=== PATIENT | female | born 1965 | race Caucasian/White ===

== ENCOUNTER → 2016-12-03 | Day surgery (SDC) | payer BC ==
[2016-11-27 09:05] VITALS: Ht 154.9 cm; Wt 118.2 kg
[~2016-12-03] VITALS: Ht 154.9 cm; Wt 118.2 kg
[~2016-12-03] MED LIST: LIDOCAINE HCL 2% 2 ML VIAL (20MG/ML) ONE; LORA-741 PO; LPT/20 PO; LSN5 PO; MTR/600 PO; ONDANSETRON INJ 2 MG/ML 2 ML VIAL IV PRN; PROPOFOL IV EMULSION 10 MG/ML 20 ML VIAL IV ONE; TPRSR/50 PO
--- NOTE | 2016-12-03 08:25 | Endo History and Physical ---
History & Physical Date of Service: Dec 03, 2016. Chief Complaint: screening Referring Physician: Dr Nguyen History of Present Illness Patient for Colon cancer screening, no symptoms or family history . Past Surgical History Hx Cardiac Surgery: No Hx Internal Defibrillator: No Hx Pacemaker: No Hx Abdominal Surgery: No Hx of Implantable Prosthesis: No Hx Post-Op Nausea and Vomiting: No Hx Cancer Surgery: No Hx Thoracic Surgery: No Hx Orthopedic: Yes (RT WRIST BONE SPUR REMOVAL) Hx Urinary Tract Surgery: No Family History None Social History Smoking Status: Current Every Day Smoker Hx Substance Use: No Hx Alcohol Use: Yes ("SOCIALLY") Allergies Coded Allergies: No Known Allergies (Unverified , 11/27/16) Current Medications Reported Home Medications Medications Dose Route/Sig Max Daily Dose Days Date Category Ativan (Lorazepam) 0.5 Mg Tab 0.5 Mg PO TID PRN 11/27/16 Reported Ibuprofen 600 Mg Tab 1 Tab PO DAILY PRN 11/27/16 Reported Atorvastatin Calcium (Atorvastatin) 20 Mg Tab 20 Mg PO HS 12/08/15 Reported Metoprolol Succinate ER (Metoprolol Succinate) 50 Mg Tabcr 50 Mg PO QAM 12/08/15 Reported Lisinopril 5 Mg Tab 5 Mg PO QAM 09/13/13 Reported Vital Signs Weight (Kilograms): 118.18 Height (Feet): 5 Height (Inches): 1 Date Time Temp Pulse Resp B/P (MAP) Pulse Ox O2 Delivery O2 Flow Rate FiO2 12/03/16 08:18 36.6 74 20 145/77 (99) 94 Room Air Physical Exam General Appearance: no apparent distress Respiratory/Chest: Auscultation: breath sounds normal Cardiovascular: Heart Auscultation: RRR Abdomen: Inspection & Palpation: soft Assessment and Plan Colonoscopy for CRC screening, risks are bleeding, infection, perforation, pain , and missed polyps.
--- NOTE | 2016-12-03 08:57 | Discharge Instructions ---
Endoscopy Patient Instructions Date / Procedure(s) Performed Dec 03, 2016. Colonoscopy Allergy Information Coded Allergies: No Known Allergies (Unverified , 11/27/16) Discharge Date / Findings Dec 03, 2016. 4 colon polyps Hemorrhoids Diverticulosis of the colon Medication Instructions Reported Home Medications Medications Dose Route/Sig Max Daily Dose Days Date Category Ativan (Lorazepam) 0.5 Mg Tab 0.5 Mg PO TID PRN 11/27/16 Reported Ibuprofen 600 Mg Tab 1 Tab PO DAILY PRN 11/27/16 Reported Atorvastatin Calcium (Atorvastatin) 20 Mg Tab 20 Mg PO HS 12/08/15 Reported Metoprolol Succinate ER (Metoprolol Succinate) 50 Mg Tabcr 50 Mg PO QAM 12/08/15 Reported Lisinopril 5 Mg Tab 5 Mg PO QAM 09/13/13 Reported Provider Instructions Activity Restrictions - No exercising or heavy lifting for 24 hours. - Do not drink alcohol the day of the procedure. - Do not drive a car or operate machinery until the day after the procedure. - Do not make any important decisions or sign important papers in 24 hours after the procedure. Following Day: - Return to full activity which may include returning to work/school. Diet Start your diet with liquids and light foods (jello, soup, juice, toast). Then eat your usual diet if not nauseated. Treatment For Common After Affects For mild abdominal pain, bloating, or excessive gas: - Rest - Eat lightly - Lie on right side Follow-Up Information Follow-up with Dr Nguyen as scheduled Repeat colonoscopy in 3 to 5 years Consider addition of a fiber supplement (1-2 fiber gummies per day) Anesthesia Information What You Should Know You have had a procedure that required some medicine to reduce anxiety and discomfort. This treatment is called moderate sedation. After receiving the treatment, you may be sleepy, but you will be able to breathe on your own. The effects of the treatment may last for several hours. Follow these instructions along with Activity/Diet recommendations noted above: * Do NOT do anything where dizziness or clumsiness would be dangerous. * Rest quietly at home today, then you can be up and about tomorrow. * Have a responsible person stay with you the rest of today. * You may have had an I.V. today. If so, you may take the dressing off later today. Recommendations Call your doctor if: * Trouble breathing * Continuous vomiting for more than 24 hours * Temperature above 101 degrees * Severe abdominal pain or bloating * Pain not relieved by pain medicine ordered * There is increased drainage or redness from any incision * A large amount of rectal bleeding greater than 2-3 tablespoons. (If you had a polyp/s removed or have hemorrhoids, a small amount of blood - from the rectum is to be expected.) * You have any unanswered questions or concerns. IN THE EVENT OF A SERIOUS EMERGENCY, GO TO THE NEAREST EMERGENCY ROOM Your discharge instructions were prepared by provider Terry Platt. Patient Instructions Signature Page Jennifer Hernández Patient (or Guardian) Signature/Date: I have read and understand the instructions given to me by my caregivers. Caregiver/RN/Doctor Signature/Date: The above-named patient and/or guardian has received patient instructions on this date. + Original Patient Signature Page (only) stays with chart. Please make copy for patient.
--- NOTE | 2016-12-03 09:01 | GI REPORT ---
Procedure Date: 12/03/2016 8:29 AM Procedure: Colonoscopy Indications: Screening for colorectal malignant neoplasm Medicines: Monitored Anesthesia Care Complications: No immediate complications. Estimated blood loss: Minimal. Estimated Blood Loss: Estimated blood loss: none. Procedure: Pre-Anesthesia Assessment: - Prior to the procedure, a History and Physical was performed, and patient medications, allergies and sensitivities were reviewed. The patient's tolerance of previous anesthesia was reviewed. - The risks and benefits of the procedure and the sedation options and risks were discussed with the patient. All questions were answered and informed consent was obtained. - Patient identification and proposed procedure were verified prior to the procedure by the physician, the nurse and the timber sprinkler. The procedure was verified in the procedure room. - Pre-procedure physical examination revealed no contraindications to sedation. - ASA Grade Assessment: III - A patient with severe systemic disease. - After reviewing the risks and benefits, the patient was deemed in satisfactory condition to undergo the procedure. - The anesthesia plan was to use monitored anesthesia care (MAC). - Immediately prior to administration of medications, the patient was re-assessed for adequacy to receive sedatives. - The heart rate, respiratory rate, oxygen saturations, blood pressure, adequacy of pulmonary ventilation, and response to care were monitored throughout the procedure. - The physical status of the patient was re-assessed after the procedure. After I obtained informed consent, the scope was passed under direct vision. Throughout the procedure, the patient's blood pressure, pulse, and oxygen saturations were monitored continuously. The scope was introduced through the anus and advanced to the terminal ileum. The colonoscopy was performed without difficulty. The patient tolerated the procedure well. The quality of the bowel preparation was good. Findings: The perianal and digital rectal examinations were normal. A 6 mm polyp was found in the cecum. The polyp was sessile. The polyp was removed with a hot snare. Resection and retrieval were complete. Estimated blood loss was minimal. A 7 mm polyp was found in the ascending colon. The polyp was sessile. The polyp was removed with a hot snare. Resection and retrieval were complete. Estimated blood loss was minimal. Two sessile polyps were found in the rectum. The polyps were 5 to 6 mm in size. These polyps were removed with a hot snare. Resection and retrieval were complete. Estimated blood loss was minimal. Internal hemorrhoids were found during retroflexion. The hemorrhoids were mild. A few small-mouthed diverticula were found in the sigmoid colon, in the descending colon and in the ascending colon. The exam was otherwise without abnormality. Impression: - One 6 mm polyp in the cecum, removed with a hot snare. Resected and retrieved. - One 7 mm polyp in the ascending colon, removed with a hot snare. Resected and retrieved. - Two 5 to 6 mm polyps in the rectum, removed with a hot snare. Resected and retrieved. - Internal hemorrhoids. - Mild diverticulosis in the sigmoid colon, in the descending colon and in the ascending colon. - The examination was otherwise normal. Recommendation: - Discharge patient to home (ambulatory). - Advance diet as tolerated today. - Await pathology results. - Repeat colonoscopy in 3 - 5 years for surveillance based on pathology results. Terry Platt D.O. Terry Platt, 12/03/2016 9:00:51 AM This report has been signed electronically. Note Initiated On: 12/03/2016 8:29 AM I attest to the content of the Intraoperative Record and orders documented therein, exceptions below
[2016-12-03 09:33] VITALS: BP 140/80; PULSE 65; O2SAT 94
--- NOTE | 2016-12-03 09:33 | Anesthesiology Progress Note ---
Anesthesia Post Op Note Date & Time Dec 03, 2016 at 09:33 Vital Signs Pain Intensity: 0 Vital Signs Past 12 Hours Date Time Temp Pulse Resp B/P (MAP) Pulse Ox O2 Delivery O2 Flow Rate FiO2 12/03/16 09:18 72 20 134/83 (100) 99 12/03/16 09:03 74 20 117/56 (76) 94 Room Air Mask 12/03/16 08:18 36.6 74 20 145/77 (99) 94 Room Air Notes Mental Status: alert / awake / arousable, participated in evaluation Pt Amnestic to Procedure: Yes Nausea / Vomiting: adequately controlled Pain: adequately controlled Airway Patency, RR, SpO2: stable & adequate BP & HR: stable & adequate Hydration State: stable & adequate Anesthetic Complications: no major complications apparent
== END | disposition home or self-care (01) ==
LOC: C.GI 07:50
PROVIDERS: ATTEND Internal Medicine Gastroenterology
DX: Z12.11 Encounter for screening for malignant neoplasm of colon (principal); D12.0 Benign neoplasm of cecum; D12.2 Benign neoplasm of ascending colon; K62.1 Rectal polyp; K64.8 Other hemorrhoids; K57.30 Diverticulosis of large intestine without perforation or abscess without bleeding; I10 Essential (primary) hypertension; E66.01 Morbid (severe) obesity due to excess calories; Z68.42 Body mass index [BMI] 45.0-49.9, adult; Z98.890 Other specified postprocedural states; Z90.89 Acquired absence of other organs; Z98.818 Other dental procedure status

== ENCOUNTER 2023-07-21 18:27 | Inpatient (IN) ==
--- NOTE | 2023-07-21 18:37 | ED Triage Note ---
Date of Service July 21, 2023 Provider in Triage Author: Esequiel Núñez History of Present Illness This patient was briefly evaluated while in triage. An abbreviated physical exam was performed. This patient is a 57-year-old Female who presents to the ED for evaluation of SOB and coughing. Has had low grade fever at home. Symptoms began last evening. SOB increased throughout the night. +Headache. Taking Tylenol, but with body aches. O2% in triage is 88% Physical Exam Limited Triage Exam: VITALS: Vitals are noted on the nurse's note and reviewed by myself. Vital signs stable. GENERAL: Well-developed, well-nourished, white female, who is in no acute distress and resting comfortably. Patient is cooperative with the examination. HEART: Regular rate and rhythm without murmurs gallops or rubs. LUNGS: Clear to auscultation bilaterally without wheezes, rales or rhonchi. No retractions or accessory muscle use. NEURO: Patient was alert and oriented to person place and time. CN II through XII grossly intact. Initial orders for labs and / or imaging were placed and patient was placed in the waiting area until a bed is available. Please see further documentation for the full ED course. MDM / Impression Impression Impression: Influenza A, Hypoxia
--- NOTE | 2023-07-21 19:07 | XRay Report ---
XR chest 1V portable HISTORY: 57 years-old Female Dyspnea acute shortness of breath with cough COMPARISON: 02/10/2021 TECHNIQUE: AP view of the chest FINDINGS: Cardiac silhouette is enlarged. There is no pneumothorax, pleural effusion or airspace consolidation. Bones appear grossly intact. IMPRESSION: No acute process. ACT 112: Negative or not required by law. The above report was generated using voice recognition software. It may contain grammatical, syntax o r spelling errors. Electronically signed by: Edin Malin M.D. 07/21/2023 7:06 PM
[2023-07-21 19:20] LABS: Basophils # (auto) 0.05 K/uL (0.00-0.20); Basophils % (auto) 0.7 %; Eosinophils # (auto) 0.02 K/uL (0.00-0.50); Eosinophils % (auto) 0.3 %; Hemoglobin 15.2 g/dl (12.0-16.0); Immature Granulocytes # (auto) 0.03 K/uL (0.01-0.20); Immature Granulocytes % (auto) 0.4 %; Lymphocytes # (auto) 0.46 K/uL (1.20-3.40); Lymphocytes % (auto) 6.6 %; Mean Corpuscular Hemoglobin 29.2 pg (25.0-34.0); Mean Corpuscular Volume 88.5 fL (80.0-100.0); Monocytes % (auto) 7.2 %; Neutrophils # (auto) 5.92 K/uL (1.40-6.50); Neutrophils % (auto) 84.8 %; Platelet Count 162 K/uL (130-400); RDW Coefficient of Variation 13.5 % (11.5-14.5); RDW Standard Deviation 43.5 fL (36.4-46.3); White Blood Count 6.98 K/ul (4.8-10.8)
[2023-07-21 19:38] LABS: Albumin Globulin Ratio 1.4 (0.9-2); Albumin Level 4.2 gm/dl (3.4-5.0); BUN Creatinine Ratio 15.9 (10-20); Bilirubin,Total 0.6 mg/dl (0.2-1.0); Calcium 9.4 mg/dl (8.6-10.3); Creatinine Clr Calc Pharmacy 116.4 ml/min; Est GFR (African American) 116.2 ml/min; Est GFR (Non-African American) 100.3 ml/min; Potassium 3.9 mmol/L (3.5-5.1); Total Protein 7.2 gm/dl (6.0-8.3)
--- NOTE | 2023-07-21 19:56 | Emergency Department Note ---
ED Provider Note History of Present Illness Chief Complaint: Shortness of Breath/Dyspnea Stated Complaint: SOB, COUGH, CHILLS, BODY ACHES, HEADACHE Time Seen by Provider: 07/21/23 18:44 Source: patient Mode of arrival: ambulatory Limitations: no limitations This patient is a 57-year-old female who presents to the emergency department accompanied by a friend for evaluation of shortness of breath. Patient developed a slight cough yesterday. She states that the cough has worsened and she has coughing fits associated with some shortness of breath. She has had headache, body aches and feels rundown. Denies any recent sick contacts. She is a smoker but denies history of asthma or COPD. She does not use oxygen at home. She does have a pulse oximeter and was checking her oxygen levels at home. She states that at the lowest they were 83 and at the highest about 90. She states that she becomes very short of breath with moving around and with coughing fits. Home Medications Medication Instructions Recorded Confirmed Type atorvastatin 20 mg tablet 20 mg PO QAM 11/12/18 07/21/23 History lorazepam 0.5 mg tablet 0.5 mg PO TID PRN Anxiety 11/12/18 07/21/23 History omeprazole magnesium 20 mg 20 mg PO HS PRN Acid Reflux 11/12/18 07/21/23 History tablet,delayed release (Prilosec OTC) metoprolol tartrate 50 mg tablet 50 mg PO BID #60 tabs 03/30/19 07/21/23 Rx meloxicam 15 mg tablet 15 mg PO DAILY 06/14/21 07/21/23 History acetaminophen 500 mg tablet 1,000 mg PO DIRECTED PRN Pain 07/21/23 07/21/23 History (Tylenol Extra Strength) amlodipine 5 mg tablet 5 mg PO QAM 07/21/23 07/21/23 History lisinopril 20 mg tablet 20 mg PO QAM 07/21/23 07/21/23 History Allergies Allergy/AdvReac Type Severity Reaction Status Date / Time No Known Allergies Allergy Verified 07/21/23 19:47 Past Med/Surg History Medical History (Updated 07/21/23 @ 21:38 by Jose Moore MD) Osteoarthritis GERD (gastroesophageal reflux disease) Graves disease hx of, no longer has--had radioactive iodine pills Depression Anxiety Hypertension Hyperlipidemia Bronchitis hx of in jul 2018--inhaler prn Surgical History History of bilateral tubal ligation History of surgery on right wrist bone spur removed History of colonoscopy History of esophagogastroduodenoscopy (EGD) History of oral surgery permanent implants History of wisdom tooth extraction History of tonsillectomy and adenoidectomy Family History Sister Family history of diabetes mellitus Other No family history of adverse response to anesthesia Social History Smoking Status: Current every day smoker Tobacco Type: Cigarettes Second Hand Exposure: Yes (parents smoked); Do You Dip or Chew Tobacco: No; Hx Alcohol Use: Yes Alcohol type: beer, wine and hard liquor Hx Substance Use: No Preferred Language: Romansh Communication Ability: Effective Home Vis[employer] Required: No Beliefs That Will Affect Care: None Current Living Situation: Spouse Current Living Situation Comment: Lives with Feels Safe at Home: Yes Assistive Devices: Glasses Physical Exam Vital Signs Vital Signs - 24 hr 07/21/23 18:35 07/21/23 19:14 07/21/23 19:15 Temperature 37.5 C Temperature Source Temporal Artery Scan Pulse Rate 68 65 Pulse Rate [Apical] Pulse Rate from SpO2 Sensor Respiratory Rate 24 12 Respiratory Effort / Characteristics Non-Labored Spontaneous Respiratory Depth Normal Respiratory Pattern Regular Blood Pressure 192/91 H Blood Pressure [Right Arm] Blood Pressure Mean 124 Blood Pressure Mean [Right Arm] Blood Pressure Position [Right Arm] Pulse Oximetry 88 L 93 Oxygen Delivery Method Room Air Nasal Cannula Nasal Cannula Oxygen Flow Rate 2 2 Sepsis Recent Fever Within 48 Hours No Sepsis New/Unexplained Change in Mental Status N/A Sepsis Action Taken by Nursing No Action Required 07/21/23 19:19 07/21/23 21:05 07/21/23 21:50 Temperature Temperature Source Pulse Rate 61 Pulse Rate [Apical] 62 Pulse Rate from SpO2 Sensor 61 Respiratory Rate 24 22 Respiratory Effort / Characteristics Non-Labored Spontaneous Respiratory Depth Respiratory Pattern Regular Blood Pressure 151/76 H Blood Pressure [Right Arm] 148/77 H Blood Pressure Mean 101 Blood Pressure Mean [Right Arm] 100 Blood Pressure Position [Right Arm] Semi-fowlers Pulse Oximetry 94 93 93 Oxygen Delivery Method Nasal Cannula Nasal Cannula Nasal Cannula Oxygen Flow Rate 2 2 Sepsis Recent Fever Within 48 Hours Sepsis New/Unexplained Change in Mental Status Sepsis Action Taken by Nursing VITALS: Vitals are noted on the nurse's note and reviewed by myself. GENERAL: This is a 57-year-old female, in no acute distress, well-developed well-nourished. SKIN: The skin was without rashes. EARS: External auditory canals clear, tympanic membranes pearly souza without erythema or effusion bilaterally. EYES: Pupils equal round and reactive to light and accommodation. Conjunctivae without injection. NOSE: Patent, turbinates without inflammation or discharge. MOUTH: Mucous membranes moist. Tonsils are not enlarged. Pharynx without erythema or exudate. NECK: Supple without nuchal rigidity. No lymphadenopathy. HEART: Regular rate and rhythm without murmurs gallops or rubs. LUNGS: Clear to auscultation bilaterally without wheezes, rales or rhonchi. No retractions or accessory muscle use. NEURO: Patient was alert and oriented to person place and time. Course Administered Medications Magnesium Sulfate/Dextrose (Magnesium Sulfate / D5w) 1 gm in 100 mls @ 50 mls/hr IV ONE ONE Stop: 07/21/23 23:10 Last Admin: 07/21/23 21:50 Dose: 50 mls/hr Documented By: SESAR Potassium Chloride/Sodium Chloride (Normal Saline W/20 Meq Kcl) 20 meq in 1,000 mls @ 50 mls/hr IV .Q20H ONE; Protocol Stop: 07/22/23 17:10 Last Admin: 07/21/23 21:50 Dose: 50 mls/hr Documented By: SESAR Discontinued Medications Acetaminophen (Acetaminophen 500 Mg Tab) 1,000 mg PO NOW STA Stop: 07/21/23 20:25 Last Admin: 07/21/23 20:32 Dose: 1,000 mg Documented By: YAYA Albuterol (Albut/Ipratrop 3mg/0.5mg Neb 3 Ml Vial) 3 ml NEB NOW STA; Protocol Stop: 07/21/23 21:07 Last Admin: 07/21/23 21:50 Dose: 3 ml Documented By: SESAR Lisinopril (Lisinopril 10 Mg Tab) 10 mg PO NOW ONE Stop: 07/21/23 20:39 Last Admin: 07/21/23 21:06 Dose: 10 mg Documented By: Oseltamivir Phosphate (Oseltamivir Phosphate 75 Mg Cap) 75 mg PO BID ONE; Protocol Stop: 07/21/23 21:01 Last Admin: 07/21/23 21:06 Dose: 75 mg Documented By: Medical Decision Making Differential Diagnosis Reactive airway disease, pneumonia, pneumothorax, COPD, CHF, infections, cardiac ischemia, pulmonary embolism, musculoskeletal, gastrointestinal, as well as other pathologies. Home Medications was personally reviewed by me Laboratory Data Attestation: I reviewed the patient's lab results. 07/21/23 19:08 07/21/23 19:08 Lab Results 07/21/23 07/21/23 07/21/23 Range/Units 19:00 19:08 19:55 WBC 6.98 (4.8-10.8) K/ul RBC 5.20 (4.20-5.40) M/uL Hgb 15.2 (12.0-16.0) g/dl Hct 46.0 (37.0-47.0) % MCV 88.5 (80.0-100.0) fL MCH 29.2 (25.0-34.0) pg MCHC 33.0 (32.0-36.0) g/dL RDW Std Deviation 43.5 (36.4-46.3) fL RDW Coeff of Angela 13.5 (11.5-14.5) % Plt Count 162 (130-400) K/uL MPV 9.0 L (9.4-12.4) fL Immature Gran % (Auto) 0.4 % Neut % (Auto) 84.8 % Lymph % (Auto) 6.6 % [place] % (Auto) 7.2 % Eos % (Auto) 0.3 % Baso % (Auto) 0.7 % Neut # (Auto) 5.92 (1.40-6.50) K/uL Lymph # (Auto) 0.46 L (1.20-3.40) K/uL [place] # (Auto) 0.50 (0.11-0.59) K/uL Eos # (Auto) 0.02 (0.00-0.50) K/uL Baso # (Auto) 0.05 (0.00-0.20) K/uL Immature Gran # (Auto) 0.03 (0.01-0.20) K/uL Sodium 135 L (136-145) mmol/L Potassium 3.9 (3.5-5.1) mmol/L Chloride 101 (98-107) mmol/L Carbon Dioxide 26 (21-32) mmol/L Anion Gap 8 (3-11) BUN 10 (6-23) mg/dl Creatinine 0.63 (0.6-1.2) mg/dl Est Cr Clr Drug Dosing 116.4 ml/min Est GFR ( Amer) 116.2 ml/min Est GFR (Non-Af Amer) 100.3 ml/min BUN/Creatinine Ratio 15.9 (10-20) Glucose 103 H (70-99(Fasting)) mg/dl Calcium 9.4 (8.6-10.3) mg/dl Magnesium 1.7 (1.7-2.4) mg/dl Total Bilirubin 0.6 (0.2-1.0) mg/dl AST 15 (13-39) U/L ALT 18 (7-52) U/L Alkaline Phosphatase 89 (34-104) U/L Troponin I High Sens 8.0 (0-14) pg/ml Total Protein 7.2 (6.0-8.3) gm/dl Albumin 4.2 (3.4-5.0) gm/dl Globulin 3.0 (2.5-4.0) gm/dl Albumin/Globulin Ratio 1.4 (0.9-2) Urine Color Yellow Urine Appearance Clear (Clear) Urine pH 6.5 (4.5-7.5) Ur Specific [place] 1.022 (1.000-1.030) Urine Protein Trace H (Negative) Urine Glucose (UA) Negative (Negative) Urine Ketones 1+ H (Negative) Urine Blood 2+ H (Negative) Urine Nitrite Negative (Negative) Urine Bilirubin Negative (Negative) Urine Urobilinogen Negative (Negative) Ur Leukocyte Esterase Negative (Negative) Urine WBC (Auto) 1-5 (0-5) /hpf Urine RBC (Auto) >30 H (0-4) /hpf U Hyaline Cast (Auto) 1-5 (0-5) /lpf U Epithel Cells (Auto) >30 H (0-5) /lpf Urine Bacteria (Auto) Negative (Negative) Nasal Influ A H1 2008 PCR DETECTED A* (NotDetected) Adenovirus (PCR) Not Detected (NotDetected) B. pertussis DNA (PCR) Not Detected (NotDetected) B.parapertussis DNA PCR Not Detected (NotDetected) C. pneumoniae DNA (PCR) Not Detected (NotDetected) Coronavirus OC43 (PCR) Not Detected (NotDetected) Coronavirus HKU1 (PCR) Not Detected (NotDetected) Coronavirus 229E (PCR) Not Detected (NotDetected) SARS-CoV-2 (PCR) Not Detected (NotDetected) Coronavirus NL63 (PCR) Not Detected (NotDetected) Human Metapneumovir PCR Not Detected (NotDetected) Influenza Type B (PCR) Not Detected (NotDetected) M. pneumoniae (PCR) Not Detected (NotDetected) Parainfluenza 1 (PCR) Not Detected (NotDetected) Parainfluenza 2 (PCR) Not Detected (NotDetected) Parainfluenza 3 (PCR) Not Detected (NotDetected) Parainfluenza 4 (PCR) Not Detected (NotDetected) RSV (PCR) Not Detected (NotDetected) Entero/Rhino (PCR) Not Detected (NotDetected) Imaging Data Attestation: I personally reviewed and interpreted this imaging study as follows: Radiologist's Impression: Chest X-Ray 07/21/23 18:37 XR chest 1V portable HISTORY: 57 years-old Female Dyspnea acute shortness of breath with cough COMPARISON: 02/10/2021 TECHNIQUE: AP view of the chest FINDINGS: Cardiac silhouette is enlarged. There is no pneumothorax, pleural effusion or airspace consolidation. Bones appear grossly intact. IMPRESSION: No acute process. ACT 112: Negative or not required by law. The above report was generated using voice recognition software. It may contain grammatical, syntax or spelling errors. Electronically signed by: Edin Malin M.D. 07/21/2023 7:06 PM ECG Data Attestation: I personally reviewed and interpreted this ECG as follows: Indication: + SOB/dyspnea Rate (beats per minute): 60 Rhythm: + normal sinus ECG Sargents: + Normal ECG ST segments: + Nonspecific ST abnormalities Change: no significant change MDM Narrative Continuous classroom monitor: Order was placed for continuous classroom monitor. Patient was placed on the classroom monitor. Patient was noted to be in normal sinus rhythm at an initial rate of 70 bpm. The patient is a 57-year-old female who presents today complaining of shortness of breath and flulike symptoms. Patient found to be positive for influenza A H1 and 1. Chest x-ray with no evidence of pneumonia. Labs otherwise unremarkable, no elevation of the troponin. Patient was found to be hypoxic with O2 sat of 87% on room air with a good waveform. She was placed on 2 L of oxygen via nasal cannula. She received Tylenol for headache. Case was discussed with the [facility] service, who agreed to evaluate patient for further care. Impression Influenza A, Hypoxia Discharge Plan Visit Data Chief Complaint: Shortness of Breath/Dyspnea Stated Complaint: SOB, COUGH, CHILLS, BODY ACHES, HEADACHE ED Provider: Storm Prado ED Midlevel Provider: Maureen Brooks Discharge Problem: Influenza A, Hypoxia Forms Stand Alone Forms: [facility] Prescriptions Prescriptions: No Action atorvastatin 20 mg Tablet 20 mg PO QAM lorazepam 0.5 mg Tablet 0.5 mg PO TID PRN (Reason: Anxiety) omeprazole magnesium [Prilosec OTC] 20 mg Tablet,Delayed Release (Dr/Ec) 20 mg PO HS PRN (Reason: Acid Reflux) metoprolol tartrate 50 mg tablet 50 mg PO BID Qty: 60 0RF meloxicam 15 mg tablet 15 mg PO DAILY lisinopril 20 mg tablet 20 mg PO QAM amlodipine 5 mg tablet 5 mg PO QAM acetaminophen [Tylenol Extra Strength] 500 mg Tablet 1,000 mg PO DIRECTED PRN (Reason: Pain) Referrals Referrals: Robbin Nguyen MD [Primary Care Provider] -
[2023-07-21 20:01] LABS: Adenovirus PCR Not Detected (NotDetected); Bordetella parapertussis PCR Not Detected (NotDetected); Bordetella pertussis PCR Not Detected (NotDetected); Chlamydia pneumoniae PCR Not Detected (NotDetected); Coronavirus 229E PCR Not Detected (NotDetected); Coronavirus CoV-2 (COVID19)PCR Not Detected (NotDetected); Coronavirus HKU1 PCR Not Detected (NotDetected); Coronavirus NL63 PCR Not Detected (NotDetected); Coronavirus OC43PCR Not Detected (NotDetected); Human Metapneumovirus PCR Not Detected (NotDetected); Influenza B PCR Not Detected (NotDetected); Mycoplasma pneumoniae PCR Not Detected (NotDetected); Parainfluenza Virus 1 PCR Not Detected (NotDetected); Parainfluenza Virus 2 PCR Not Detected (NotDetected); Parainfluenza Virus 3 PCR Not Detected (NotDetected); Parainfluenza Virus 4 PCR Not Detected (NotDetected); Respiratory Syncytial VirusPCR Not Detected (NotDetected); Rhinovirus/Enterovirus PCR Not Detected (NotDetected)
[2023-07-21 20:10] LABS: Influenza A (H1 2009) PCR DETECTED (NotDetected)
[2023-07-21 20:10] LABS: Appearance Urine Clear (Clear); Bacteria Urine Automated Negative (Negative); Bilirubin Urine Negative (Negative); Blood Urine 2+ (Negative); Color Urine Yellow; Epithelial Cell Urine Auto >30 /lpf (0-5); Glucose Urine UA Negative (Negative); Ketones Urine 1+ (Negative); Leukocyte Esterase Urine Negative (Negative); Nitrite Urine Negative (Negative); Protein Urine Trace (Negative); RBC Urine Automated >30 /hpf (0-4); Specific Gravity Urine 1.022 (1.000-1.030); Urobilinogen Urine Negative (Negative); pH Urine 6.5 (4.5-7.5)
[2023-07-21] MEDS ORDERED: ACETAMINOPHEN 500 MG TAB PO STA (20:24)
[2023-07-21] MEDS ORDERED: lisinopril 10 MG TAB PO ONE (20:38)
[2023-07-21 21:00] LABS: Magnesium 1.7 mg/dl (1.7-2.4)
[2023-07-21] MEDS ORDERED: OSELTAMIVIR PHOSPHATE 75 MG CAP PO ONE (21:00)
[2023-07-21] MEDS ORDERED: ALBUT/IPRATROP 3MG/0.5MG NEB 3 ML VIAL NEB STA (21:06)
[2023-07-21] MEDS ORDERED: MAGNESIUM SULFATE / D5W 1 GM/100 ML BAG IV ONE (21:11)
[2023-07-21] MEDS ORDERED: NSS + 20MEQ KCL 20 MEQ/1,000 ML BAG IV ONE (21:11)
[2023-07-21] MEDS ORDERED: PROMETHAZINE HCL 12.5 MG in SODIUM CHLORIDE 0.9% 50 ML IV PRN (21:11)
--- NOTE | 2023-07-21 21:26 | History & Physical Report ---
Date of Service July 21, 2023 Assessment & Plan (1) Acute hypoxemic respiratory failure: Plan: Secondary to influenza illness Hypertensive crisis secondary to above hyperlipidemia, on statin Rx hyperthyroidism, off maintenance medications for years now ongoing tobacco abuse Medical telemetry Supplemental O2 Tamiflu Analgesia, titrate home BP meds Nicotine patch as needed DVT prophylaxis. Lovenox subcu Full code Text document was generated using [employer] voice recognition software. It may contain grammatical or spelling errors. Kindly contact undersigned for clarification of any documentation item in question. History of Present Illness Chief Complaint: Cough, shortness of breath, weakness Primary Care Provider: Robbin Nguyen MD History obtained from patient and records. Medical history significant for hypertension, hyperlipidemia, GERD, hyperthyroidism, ongoing tobacco abuse. 2 days history of cough symptoms productive of clear sputum associated with shortness of breath mostly on exertion. Chest pain from coughing. Persistent frontal headache symptoms not related to coughing spell as per patient. Possible sick contacts at work. Patient completed COVID-19 vaccination, has received seasonal flu vaccine last year. O2 sats 80s on pulse ox at home. Medical History as above Surgical History : Tonsillectomy/adenectomy, BTL, wrist surgery Family History : Colon cancer, breast cancer, COPD, DM, heart disease, lung cancer Personal/Social history : 1 pack daily, occasional EtOH intake, [employer] employee Allergies Allergy/AdvReac Type Severity Reaction Status Date / Time No Known Allergies Allergy Verified 07/21/23 19:47 Home Medications Medication Instructions Recorded Confirmed Type atorvastatin 20 mg tablet 20 mg PO QAM 11/12/18 07/21/23 History lorazepam 0.5 mg tablet 0.5 mg PO TID PRN Anxiety 11/12/18 07/21/23 History omeprazole magnesium 20 mg 20 mg PO HS PRN Acid Reflux 11/12/18 07/21/23 History tablet,delayed release (Prilosec OTC) metoprolol tartrate 50 mg tablet 50 mg PO BID #60 tabs 03/30/19 07/21/23 Rx meloxicam 15 mg tablet 15 mg PO DAILY 06/14/21 07/21/23 History acetaminophen 500 mg tablet 1,000 mg PO DIRECTED PRN Pain 07/21/23 07/21/23 History (Tylenol Extra Strength) amlodipine 5 mg tablet 5 mg PO QAM 07/21/23 07/21/23 History lisinopril 20 mg tablet 20 mg PO QAM 07/21/23 07/21/23 History Past Med/Surg History Medical History (Updated 07/21/23 @ 21:38 by Jose Moore MD) Osteoarthritis GERD (gastroesophageal reflux disease) Graves disease hx of, no longer has--had radioactive iodine pills Depression Anxiety Hypertension Hyperlipidemia Bronchitis hx of in jul 2018--inhaler prn Surgical History History of bilateral tubal ligation History of surgery on right wrist bone spur removed History of colonoscopy History of esophagogastroduodenoscopy (EGD) History of oral surgery permanent implants History of wisdom tooth extraction History of tonsillectomy and adenoidectomy Family History Sister Family history of diabetes mellitus Other No family history of adverse response to anesthesia Social History Smoking Status: Current every day smoker Tobacco Type: Cigarettes Cigarettes Per Day: 20; Second Hand Exposure: No; Do You Dip or Chew Tobacco: No; Tobacco Cessation Education Requested by Patient: Yes Hx Alcohol Use: No Hx Substance Use: No Preferred Language: Estonian Communication Ability: Effective [employer] Tr[employer] Required: No Beliefs That Will Affect Care: None Current Living Situation: Alone Current Living Situation Comment: Lives with Other Information That Helps Us Care for You: No Feels Safe at Home: Yes Safety Concerns: Feels Safe At This Time Assistive Devices: Glasses Review of Systems Review of Systems: As per HPI, all other systems reviewed and negative Physical Exam Physical Exam: GENERAL: Comfortable, pleasant, morbidly obese, no respiratory distress SKIN: Normal color, warm HEENT: Bespectacled, [place] palpebral conjunctivae, no ptosis, dry buccal mucosa NECK : Supple, short neck, no tenderness CHEST : Decreased breath sounds, no tenderness HEART : RRR, no obvious murmurs ABDOMEN: Some distention, nontender EXTREMITIES : No LE swelling/tenderness, no other conspicuous deformities noted NEUROLOGIC : Coherent, no facial asymmetry, no other gross focality Results & Data Results & Data Vital Signs (Past 12 Hours) Vital Signs Temp Pulse Pulse Resp BP BP Pulse Ox 07/21/23 21:05 62 24 148/77 H 93 07/21/23 19:19 94 07/21/23 19:15 07/21/23 19:14 65 12 93 07/21/23 18:35 37.5 C 68 24 192/91 H 88 L O2 Del Method O2 Flow Rate 07/21/23 21:05 Nasal Cannula 2 07/21/23 19:19 Nasal Cannula 07/21/23 19:15 Nasal Cannula 2 07/21/23 19:14 Nasal Cannula 2 07/21/23 18:35 Room Air Laboratory Results Laboratory Results WBC 6.98 K/ul (4.8-10.8) 07/21/23 19:08 RBC 5.20 M/uL (4.20-5.40) 07/21/23 19:08 Hgb 15.2 g/dl (12.0-16.0) 07/21/23 19:08 Hct 46.0 % (37.0-47.0) 07/21/23 19:08 MCV 88.5 fL (80.0-100.0) 07/21/23 19:08 MCH 29.2 pg (25.0-34.0) 07/21/23 19:08 MCHC 33.0 g/dL (32.0-36.0) 07/21/23 19:08 RDW Std Deviation 43.5 fL (36.4-46.3) 07/21/23 19:08 RDW Coeff of Angela 13.5 % (11.5-14.5) 07/21/23 19:08 Plt Count 162 K/uL (130-400) 07/21/23 19:08 MPV 9.0 fL (9.4-12.4) L 07/21/23 19:08 Immature Gran % (Auto) 0.4 % 07/21/23 19:08 Neut % (Auto) 84.8 % 07/21/23 19:08 Lymph % (Auto) 6.6 % 07/21/23 19:08 [place] % (Auto) 7.2 % 07/21/23 19:08 Eos % (Auto) 0.3 % 07/21/23 19:08 Baso % (Auto) 0.7 % 07/21/23 19:08 Neut # (Auto) 5.92 K/uL (1.40-6.50) 07/21/23 19:08 Lymph # (Auto) 0.46 K/uL (1.20-3.40) L 07/21/23 19:08 [place] # (Auto) 0.50 K/uL (0.11-0.59) 07/21/23 19:08 Eos # (Auto) 0.02 K/uL (0.00-0.50) 07/21/23 19:08 Baso # (Auto) 0.05 K/uL (0.00-0.20) 07/21/23 19:08 Immature Gran # (Auto) 0.03 K/uL (0.01-0.20) 07/21/23 19:08 Sodium 135 mmol/L (136-145) L 07/21/23 19:08 Potassium 3.9 mmol/L (3.5-5.1) 07/21/23 19:08 Chloride 101 mmol/L (98-107) 07/21/23 19:08 Carbon Dioxide 26 mmol/L (21-32) 07/21/23 19:08 Anion Gap 8 (3-11) 07/21/23 19:08 BUN 10 mg/dl (6-23) 07/21/23 19:08 Creatinine 0.63 mg/dl (0.6-1.2) 07/21/23 19:08 Est Cr Clr Drug Dosing 116.4 ml/min 07/21/23 19:08 Est GFR ( Amer) 116.2 ml/min 07/21/23 19:08 Est GFR (Non-Af Amer) 100.3 ml/min 07/21/23 19:08 BUN/Creatinine Ratio 15.9 (10-20) 07/21/23 19:08 Glucose 103 mg/dl (70-99(Fasting)) H 07/21/23 19:08 Calcium 9.4 mg/dl (8.6-10.3) 07/21/23 19:08 Magnesium 1.7 mg/dl (1.7-2.4) 07/21/23 19:08 Total Bilirubin 0.6 mg/dl (0.2-1.0) 07/21/23 19:08 AST 15 U/L (13-39) 07/21/23 19:08 ALT 18 U/L (7-52) 07/21/23 19:08 Alkaline Phosphatase 89 U/L (34-104) 07/21/23 19:08 Troponin I High Sens 8.0 pg/ml (0-14) 07/21/23 19:08 Total Protein 7.2 gm/dl (6.0-8.3) 07/21/23 19:08 Albumin 4.2 gm/dl (3.4-5.0) 07/21/23 19:08 Globulin 3.0 gm/dl (2.5-4.0) 07/21/23 19:08 Albumin/Globulin Ratio 1.4 (0.9-2) 07/21/23 19:08 Urine Color Yellow 07/21/23 19:55 Urine Appearance Clear (Clear) 07/21/23 19:55 Urine pH 6.5 (4.5-7.5) 07/21/23 19:55 Ur Specific [place] 1.022 (1.000-1.030) 07/21/23 19:55 Urine Protein Trace (Negative) H 07/21/23 19:55 Urine Glucose (UA) Negative (Negative) 07/21/23 19:55 Urine Ketones 1+ (Negative) H 07/21/23 19:55 Urine Blood 2+ (Negative) H 07/21/23 19:55 Urine Nitrite Negative (Negative) 07/21/23 19:55 Urine Bilirubin Negative (Negative) 07/21/23 19:55 Urine Urobilinogen Negative (Negative) 07/21/23 19:55 Ur Leukocyte Esterase Negative (Negative) 07/21/23 19:55 Urine WBC (Auto) 1-5 /hpf (0-5) 07/21/23 19:55 Urine RBC (Auto) >30 /hpf (0-4) H 07/21/23 19:55 U Hyaline Cast (Auto) 1-5 /lpf (0-5) 07/21/23 19:55 U Epithel Cells (Auto) >30 /lpf (0-5) H 07/21/23 19:55 Urine Bacteria (Auto) Negative (Negative) 07/21/23 19:55 Nasal Influ A H1 2008 PCR DETECTED (NotDetected) A* 07/21/23 19:00 Adenovirus (PCR) Not Detected (NotDetected) 07/21/23 19:00 B. pertussis DNA (PCR) Not Detected (NotDetected) 07/21/23 19:00 B.parapertussis DNA PCR Not Detected (NotDetected) 07/21/23 19:00 C. pneumoniae DNA (PCR) Not Detected (NotDetected) 07/21/23 19:00 Coronavirus OC43 (PCR) Not Detected (NotDetected) 07/21/23 19:00 Coronavirus HKU1 (PCR) Not Detected (NotDetected) 07/21/23 19:00 Coronavirus 229E (PCR) Not Detected (NotDetected) 07/21/23 19:00 SARS-CoV-2 (PCR) Not Detected (NotDetected) 07/21/23 19:00 Coronavirus NL63 (PCR) Not Detected (NotDetected) 07/21/23 19:00 Human Metapneumovir PCR Not Detected (NotDetected) 07/21/23 19:00 Influenza Type B (PCR) Not Detected (NotDetected) 07/21/23 19:00 M. pneumoniae (PCR) Not Detected (NotDetected) 07/21/23 19:00 Parainfluenza 1 (PCR) Not Detected (NotDetected) 07/21/23 19:00 Parainfluenza 2 (PCR) Not Detected (NotDetected) 07/21/23 19:00 Parainfluenza 3 (PCR) Not Detected (NotDetected) 07/21/23 19:00 Parainfluenza 4 (PCR) Not Detected (NotDetected) 07/21/23 19:00 RSV (PCR) Not Detected (NotDetected) 07/21/23 19:00 Entero/Rhino (PCR) Not Detected (NotDetected) 07/21/23 19:00 Impressions Chest X-Ray 07/21/23 18:37 XR chest 1V portable HISTORY: 57 years-old Female Dyspnea acute shortness of breath with cough COMPARISON: 02/10/2021 TECHNIQUE: AP view of the chest FINDINGS: Cardiac silhouette is enlarged. There is no pneumothorax, pleural effusion or airspace consolidation. Bones appear grossly intact. IMPRESSION: No acute process. ACT 112: Negative or not required by law. The above report was generated using voice recognition software. It may contain grammatical, syntax or spelling errors. Electronically signed by: Edin Malin M.D. 07/21/2023 7:[address] head: No intracranial hemorrhage or other acute intracranial abnormality identified. Diagnostic Findings EKG as per my interpretation :Rate 60, NSR, normal axis, T wave inversion septal leads
--- NOTE | 2023-07-21 22:15 | CT Scan Report ---
Exam(s): CT HEAD Without Contrast EXAM: CT Head Without Intravenous Contrast CLINICAL HISTORY: Reason for exam: pinzon, htn crisis. TECHNIQUE: Axial computed tomography images of the head/brain without intravenous contrast. CTDI is 62.82 mGy and DLP is 962.98 mGy-cm. Automated exposure control was utilized for the study. A dose lowering technique was utilized adhering to the principles of ALARA. COMPARISON: None. FINDINGS: Brain: Unremarkable. No hemorrhage. No edema. Ventricles: Unremarkable. No ventriculomegaly. Bones/joints: Unremarkable. No acute fracture. Soft tissues: Unremarkable. Sinuses: Unremarkable as visualized. Mastoid air cells: Unremarkable as visualized. No mastoid effusion. IMPRESSION: No intracranial hemorrhage or other acute intracranial abnormality identified. Electronically signed by: Son Benitez MD 07/21/23 22:14 PM
[2023-07-21] MEDS ORDERED: ACETAMINOPHEN 325 MG TAB PO PRN (22:24)
[2023-07-21] MEDS ORDERED: LORazepam 0.5 MG TAB PO PRN (22:24)
[2023-07-21] MEDS ORDERED: METOPROLOL TARTRATE 25 MG TAB PO STA (22:24)
[2023-07-21] MEDS ORDERED: PANTOprazole 40 MG TAB PO PRN (23:26)
--- OUTSIDE RECORDS SUMMARY | 2023-07-22 07:12 | External Medical Summary | Summary of Care ---
Author Name Unknown Organization [facility] [address] [address] Phone [phone] Care Team Providers Care Manager Mission Name Role Phone Wendy GONZALES MD, Robbin Hung Primary Care Provider [phone] Reason for Visit * Reason Onset Date Comments Joint Pain Medication Administration 06/18/2023 Flu an d/or Pneumo Inj Encounter Details Date Type Department Care Team (Latest Contact Info) Description 06/18/2023 11:40 AM EST Office Visit Family [facility] [address] [facility] [place] [address] Angy Solorzano PA-C [address] [facility] [place] [address] Lateral epicondylitis of right elbow*; Need for influenza vaccination; Need for prophylactic vaccination and inoculation against influenza Allergies No known active allergiesdocumented as of this encounter (statuses as of 06/18/2023) Medications Medication Sig Dispensed Refills Start Date End Date Status PRILOSEC CPDR 20 MG ORIndications:Esoph ageal reflux one tab by mouth daily at bedtime 34 5 02/01/2001 Active Additional Information Patient taking differently: Indications: as needed, Reported on 05/18/2023 Acetaminophen ER (TYLENOL ARTHRITIS PAIN) 650 MG TBCR Take 2 Tabs by mouth 2 times a day. 0 03/09/2017 Active aspirin enteric coated 81 MG TBEC Take 1 Tab by mouth daily. 0 06/20/2019 Active Vitamin D (Cholecalciferol) 50 MCG (2000 UT) Oral Capsule Take by mouth . 0 Active Vitamin B-12 100 MCG Oral Tablet (vitamin B-12) Take 1 Tablet by mouth in the morning. 0 Active Cyclobenzaprine HCl 5 MG Oral Tablet (Flexeril)Indicatio ns:Lumbar degenerative disc disease,Spasm of muscle,Acute right-sided low back pain without sciatica Take by mouth 1 Tablet 2 times a day as needed for Muscle spasms. 30 Tablet 0 01/20/2022 Active Metoprolol Tartrate 50 MG Oral Tablet (Lopressor) TAKE ONE TABLET BY MOUTH EVERY MORNING AND 1 TABLET BEFORE BEDTIME 180 Tablet 3 07/05/2022 Active LORazepam 0.5 MG Oral Tablet (Ativan)Indications :Anxiety Take 1 Tablet by mouth 3 times a day as needed for Anxiety. 30 Tablet 0 08/09/2022 Active amLODIPine Besylate 5 MG Oral Tablet (Norvasc)Indication s:HTN, goal below 140/90 TAKE ONE TABLET BY MOUTH EVERY MORNING 90 Tablet 3 01/13/2023 Active metFORMIN HCl ER 500 MG Oral Tablet Extended Release 24 Hour (Glucophage XR) TAKE TWO TABLETS BY MOUTH WITH BREAKFAST 180 Tablet 0 02/11/2023 Active Meloxicam 15 MG Oral Tablet LEWIS E ONE TABLET BY MOUTH EVERY MORNING FOR PAIN 90 Tablet 1 03/11/2023 Active Lisinopril 20 MG Oral Tablet (Prinivil) TAKE ONE TABLET BY MOUTH EVERY MORNING 90 Tablet 3 03/13/2023 Active Atorvastatin Calcium 20 MG Oral Tablet (Lipitor) TAKE ONE TABLET BY MOUTH EVERY MORNING 30 Tablet 0 05/05/2023 Active documented as of this encounter (statuses as of 06/18/2023) Active Problems Problem Noted Date Diagnosed Date Body mass index (BMI) of 45.0 to 49.9 in adult 0 03/02/2023 Overview: Per Obesity protocol - Per Obesity protocol - Per Obesity protocol - Per Obesity protocol Type 2 diabetes mellitus with diabetic neuropath y 12/29/2022 Type 2 diabetes mellitus wit h hemoglobin A1c goal of less than 7.0% 01/27/2022 DDD (degenerative disc disease), lumbar 05/18/20 21 Acute right-sided low back pain with right-sided sciatica 05/18/2021 Morbid obesity due to excess calories 11/19/2016 Hypercholesteremia 12/04/2014 Toxic diffuse goiter 11/10/2010 Family history of ischemic heart disease 009 ADVANCE DIRECTIVE INFORMATION 11/18/2005 Overview: No, Advance Directive brochure offered , patient declined. Reflux esophagitis 09/17/2000 CARPAL TUNNEL SYNDROME, right 09/17/2000 documented as of this encounter (statuses as of 06/18/2023) Resolved Problems Problem Noted Date Diagnosed Date Resolved Date Body mass index (BMI) of 40. 0 to 44.9 in adult 01/27/2022 03/05/2023 Overview: Per Obesity protocol - Per Obesity protocol - Per Obesity protocol Body mass index (BMI) of 45. 0 to 49.9 in adult 12/04/2020 01/30/2022 Overview: Per Obesity protocol - Per Obesity protocol Body mass index (BMI) of 40. 0 to 44.9 in adult 10/30/2020 12/06/2020 Overview: Per Obesity protocol Prediabetes 07/13/2017 05/18/2023 BMI 35-39 ISOLATED (SEE ACTUAL BMI) 12/03/2009 05/18/2023 Overview: Per Obesity Protocol, #19 documented as of this encounter (statuses as of 06/18/2023) Immunizations Name Administration Dates Next Due COVID-19 mRNA, LNP-s, No Pre serve, 2-Dose Series (Moderna) 10/04/2020,09/06/2020 COVID-19, mRNA, LNP-s, PF, B ooster, 100mcg/0.5mg (Moderna) 06/03/2021 Pneumococcal Conjugate Vacci ne, 20-valent ([id number]) 02/02/2023 Pneumococcal Polysaccharide PPV23 (Pneumovax) 11/28/2010 Seasonal Influenza Virus Vac cine, Unspecified Formulation 04/05/2020,04/04/2019,07/09/2018,07/13,03/22/2016,03/11/2010,02/22/2009 Seasonal Influenza, PF, 6 M & above, IM , (FluLaval or Fluzone) 06/18/2023,04/04/2019,07/09/2018,07/13 Seasonal Influenza, Quadriva lent, No Preserve, IM 04/05/2020,03/22/2016,06/07/2015 Seasonal Influenza, Split, I IV3, With Preserve, Inj 03/17/2013,04/23/2012,04/02/2011,03/11,02/22/2009 TD - Tetanus/Diptheria (ADULT) 07/09/2018 TD, Preservative Free 07/09/2018 TDAP (age 11 and older)(Adacel) 11/20/2007 Zoster Vaccine Recombinant (Shingrix) 05/06/2023 ,02/02/2023 documented as of this encounter Social History Tobacco Use Types Packs/Day Years Used Date Smoking Tobacco: Every Day Cigarettes 0.5 20 Smokeless Tobacco: Never Alcohol Use Standard Drinks/Week Comments Yes 0 (1 standard drink = 0.6 oz pur e alcohol) Social use once a week AUDIT-C Answer Date Recorded Frequency of Alcohol Consumption 2-4 times a thu04/21/2019 Average Number of Drinks Not on file 019 Frequency of Binge Drinking Not on file 03/24 PHQ-2 Answer Date Recorded PHQ Adult Total Score 0 02/02/2023 Hunger Vital Sign Answer Date Recorded Within the past 12 months, y ou worried that your food would run out before you got the money to buy more. Never true 12/30/19 23 Within the past 12 months, t he food you bought just didn't last and you didn't have money to get more. Never true 12/29/2022 Sex and Gender Information Value Date Recorded Sex Assigned at Female 01/15/2022 6:57 AM EDT Gender Identity Female 01/15/2022 6:57 AM EDT Sexual Orientation Straight 01/15/2022 6: 57 AM EDT Job Start Date Occupation Industry Not on file Not on file Not on file documented as of this encounter Last Filed Vital Signs Vital Sign Reading Time Taken Comments Blood Pressure 110/66 06/18/2023 11:43 AM EST Pulse 65 06/18/2023 11:43 AM EST Temperature 36.5 C (97.7 F) 06/18/2023 1 1:43 AM EST Respiratory Rate 16 06/18/2023 11:4 3 AM EST Oxygen Saturation 97% 06/18/2023 11: 43 AM EST Inhaled Oxygen Concentration - - Weight 113.5 kg (250 lb 1.9 oz) 023 11:43 AM EST Height 157.5 cm (5' 2") 06/18/2023 11:4 3 AM EST Body Mass Index 45.75 06/18/2023 11:43 AM EST documented in this encounter Patient Instructions * Patient Instructions* Michelle Vieyra LPN - 06/18/2023 12:11 PM EST ~~PATIENT INSTRUCTIONS FOR FLU SHOT~~ Possible side effects of influenza vaccine, (flu shot), are usually mild and include: 1. Soreness or redness at injection site 2. Low grade fever 3. Body aches You may use Tylenol/Acetaminophen as needed for these symptoms. LET YOUR DOCTOR KNOW IMMEDIATELY IF YOU HAVE DIFFICULTY BREATHING OR SWALLOWING, EXPERIENCE ITCHINGOF FEET OR HANDS, HAVE SWELLING OF EYES, FACE OR INSIDE OF NOSE. documented in this encounter Progress Notes * Michelle Vieyra LPN - 06/18/2023 12:10 PM EST PRE - ADMINISTRATION DOCUMENTATION Are you experiencing any cold symptoms or fever? No Have you had Guillain-Atwood Syndrome (an illness that causes paralysis) within the last 6 weeks? No Have you had the flu shot in the past? YES Have you ever had a reaction to the flu shot? No Michelle Vieyra LPN, 06/18/2023 12:10 PM Immunization Administration Documentation Time Out Procedure Performed: Yes Patient Identified (Ask Name/Date of ): Yes Does the patient have a fever greater than 101 degrees today? No Patient allergic to latex? No VFC Stock: No Immunization(s) verified: Yes, Immunization Name: Flu, VIS Sheet(s) given: Yes Verified Side and Site: Yes Verified Shot(s) with Parent(s)/Patient: Yes * Jeanine Angy SINGH Ham - 06/18/2023 11:58 AM EST Images from the original note were not included. History of Present Illness Jennifer Hernández is a 57 year old female that presents for Joint Pain Patient is a 57 year old female who presents with right elbow pain which started in the last week. Has had numbness in right hand for months; 3rd, 4th, 5 th fingers. Denies injury, swelling. Physical Exam Vitals: 06/18/23 1143 Temp: 36.5 C (97.7 F) Pulse: 65 Resp: 16 SpO2: 97% BP: 110/66 BMI: 45.74 BP Readings from Last 3 Encounters: 06/18/23 110/66 05/18/23 106/70 02/02/23 100/60 Wt Readings from Last 3 Encounters: 06/18/23 113.5 kg (250 lb 1.9 oz) 05/18/23 112.5 kg (248 lb 1.9 oz) 02/02/23 113.4 kg (250 lb 0.6 oz) General: alert, healthy, no distress, well nourished, well developed, comfortable, and cooperative Head: Normocephalic, No masses, lesions, tenderness or abnormalities Eye Exam: PERRLA, extraocular movements intact, conjunctiva are pink and non- injected, sclera clear Lungs: chest symmetric with normal AP diameter, no chest deformities noted, normal respiratory rateand rhythm, diaphragmatic excursion normal Extremities: less than 2 second capillary refill, no joint deformities, effusion, or inflammation, no edema, no skin discoloration, no clubbing, no cyanosis, strength noted in right upper extremity. Also tenderness to palpation over right lateral epicondyle. I have reviewed the following results: None Assessment and Plan Lateral epicondylitis of right elbow (Primary) Need for influenza vaccination Need for prophylactic vaccination and inoculation against influenza - INFLUENZA VACC, QUAD, PF, 6 MONTHS & UP, 0.5 ML, IM Discussed options for lateral epicondylitis band ice heat, physical therapy, injection. Patient will try conservative things 1st. She will leave this need know if we need to proceed with PT. Wrap-Up Time: I spent a total of 20-29 minutes (exact time 24 mins) on the date of service in preparation, delivery, and documentation of the care provided to Jennifer Hernández excluding any time spent in the performance of separately billed services. documented in this encounter Nursing Notes * Michelle Vieyra LPN - 06/18/2023 11:42 AM EST Patient presents today for right elbow pain. She said that there is numbness and tingling in her lower arm and hand but in the last week she has been having a lot of pain in her elbow and if she picks anything up it really hurts her. documented in this encounter Plan of Treatment Upcoming Encounters Date Type Department Care Team (Late st Contact Info) Description 07/15/2023 10:45 AM EST Imaging Radiology [address] [place] [address] Scheduled Procedures Name Priority Associated Diagnoses Date/Ti me COLONOSCOPY FLEXIBLE PROXIMAL DIAGNOSTIC Recall History of colon polyps Health Maintenance Due Date Last Done Comments DISCUSS TOBACCO CESSATION (REFER TO SMARTSET #6423) 1966 Hepatitis B (1 of 3 - 3-dose series) 1966 Albumin/Creatinine Ratio 1984 Diabetic Eye Exam 1984 Hepatitis C Screening 1984 HPV/Co-Test 1996 COLONOSCOPY-ANNUAL AGES 18-100 07/31/2021 07/31/2020, 07/31/2020, 12/03/2016, Additional history exists Cervical Cancer Screening 04/21/2022 Pap Smear 04/21/2022 04/21/2019, 05/23, 06/11/2015, Additional history exists Mammogram 11/25/2022 11/25/2021, 07/2020, 06/01/2019, Additional history exists COVID-19 Vaccine ( season) 2023 06/03/2021, 10/04/2020, 09/06/2020 HbA1c 07/01/2023 12/29/2022, 08/21, 06/28/2020, Additional history exists Lipid Panel 07/09/2023 07/09/2018, 10/22, 11/23/2014, Additional history exists GFR 12/30/2023 12/29/2022, 05/23, 06/28/2020, Additional history exists Depression Screening 02/03/2024 02/02/2023, 06/11/2015 (Discussed) Diabetic Foot Exam 02/03/2024 02/02/2023 DTaP,Tdap,and Td Vaccines (4 - Td or Tdap) 07/09/2028 07/09/2018, 07/09/2018, 11/20/2007 Pneumococcal Vaccine: Pediatrics (0 to 5 Years) and At-Risk Patients (6 to 64 Years) Completed 02/02/2023, 11/28/2010 Zoster Vaccines Completed 05/06/2023, 02/02/2023 Influenza Vaccine (FLU shot) Completed , 04/05/2020, 04/05/2020, Additional history exists GARDASIL-HPV IMMUNIZATION SERIES Aged Out No longer eligible based on patient's age to complete this topic MENINGOCOCCAL (MENACTRA/MENVEO) Aged Out No longer eligible based on patient's age to complete this topic documented as of this encounter Medical Devices Not on filedocumented as of this encounter Visit Diagnoses Diagnosis Lateral epicondylitis of right elbow- Primary Lateral epicondylitis of elbow Need for influenza vaccination Need for prophylactic vaccination and inoculation against influenza Need for prophylactic vaccination and inoculation against influenza documented in this encounter Care Teams Manager Mission Relationship Specialty Start Date End Date Robbin Nguyen III, MD [address] [place] [address] PCP - General 11/18/05 documented as of this encounter
--- OUTSIDE RECORDS SUMMARY | 2023-07-22 07:12 | External Medical Summary | Summary of Care ---
Author Name Unknown Organization [facility] Address [address] [facility] [place] [address] Phone [phone] Care Team Providers Care Indoor Plant Technician Name Role Phone Wendy GONZALES MD, Jenny Hung Primary Care Provider [phone] Reason for Visit * Reason Comments eRx-Medication Refill Encounter Details Date Type Department Care Team (Late st Contact Info) Description 07/10/2023 Refill Family Practice [facility] [place] [address] [facility] [place] [address] Jenny Sylvester III, MD [address] [facility] [address] Allergies No known active allergiesdocumented as of this encounter (statuses as of 07/11/2023) Medications Medication Sig Dispensed Refills Start Date End Date Status PRILOSEC CPDR 20 MG ORIndications:Eso phageal reflux one tab by mouth daily at [...] Active Cyclobenzaprine HCl 5 MG Oral Tablet (Flexeril)Indicat ions:Lumbar degenerative disc disease,Spasm of muscle,Acute right-sided low back pain without sciatica Take by mouth 1 Tablet 2 times a day as needed for Muscle spasms. 30 Tablet 0 01/20/2022 Active LORazepam 0.5 MG Oral Tablet (Ativan)Indicatio ns:Anxiety Take 1 Tablet by mouth 3 times a day as needed for Anxiety. 30 Tablet 0 08/09/2022 Active amLODIPine Besylate 5 MG Oral Tablet (Norvasc)Indicati ons:HTN, goal below 140/90 TAKE ONE TABLET BY [...] BY MOUTH EVERY MORNING 30 Tablet 0 07/04/2023 Active Metoprolol Tartrate 50 MG Oral Tablet (Lopressor) TAKE ONE TABLET BY MOUTH EVERY MORNING AND BEFORE BEDTIME 180 Tablet 1 07/11/2023 Active Metoprolol Tartrate 50 MG Oral Tablet (Lopressor) TAKE ONE TABLET BY MOUTH EVERY MORNING AND 1 TABLET BEFORE BEDTIME 180 Tablet 3 07/05/2022 07/11/19 24 Discontinued documented as of this encounter (statuses as of 07/11/2023) Active Problems Problem Noted Date Diagnosed Date [...] as of this encounter (statuses as of 07/11/2023) Resolved Problems Problem Noted Date Diagnosed Date [...] as of this encounter (statuses as of 07/11/2023) Immunizations Name Administration Dates Next Due COVID-19 mRNA, LNP-s, No Pre serve, 2-Dose Series (Moderna) 10/04/2020,09/06/2020 COVID-19, mRNA, LNP-s, PF, B ooster, 100mcg/0.5mg (Moderna) 06/03/2021 Pneumococcal Conjugate Vacci ne, 20-valent ([id number]) 02/02/2023 Pneumococcal Polysaccharide PPV23 (Pneumovax) 11/28/2010 Seasonal [...] on file documented as of this encounter Miscellaneous Notes * Telephone Encounter - Stanley Garcia, [facility], located within [facility] - 07/11/2023 11:38 AM EST Signed Prescriptions: Disp Refills Metoprolol Tartrate 50 MG Oral Tablet (Lop*180 Ta*1 Sig: TAKE ONE TABLET BY MOUTH EVERY MORNING AND BEFORE BEDTIMEAuthorizing Provider: JENNY SYLVESTER III User: STANLEY GARCIA Electronically signed by Stanley Garcia [facility], located within [facility] at 07/11/2023 11:38 AM EST documented in this encounter Plan of Treatment Upcoming Encounters Date Type Department Care Team (Late st Contact Info) Description 07/15/2023 10:45 AM EST Imaging Radiology [address] [place] [address] Scheduled Procedures Name Priority Associated Diagnoses Date/Ti me COLONOSCOPY FLEXIBLE PROXIMAL DIAGNOSTIC Recall History of colon polyps Health Maintenance Due Date Last Done Comments DISCUSS TOBACCO CESSATION (REFER TO SMARTSET #8509) 1965 Hepatitis B (1 of 3 - 3-dose series) 1966 Albumin/Creatinine Ratio 1984 Diabetic Eye Exam 1984 Hepatitis C Screening 1984 HPV/Co-Test 1996 COLONOSCOPY-ANNUAL AGES 18-100 07/31/2021 07/31/2020, 07/31/2020, 12/03/2016, Additional history exists Cervical Cancer Screening 04/21/2022 Pap Smear 04/21/2022 04/21/2019, 05/23, 06/11/2015, Additional history exists Mammogram 11/25/2022 11/25/2021, 0607/2020, 06/01/2019, Additional history exists COVID-19 Vaccine ( [...] Not on filedocumented as of this encounter Care Teams Indoor Plant Technician Relationship Specialty Start Date End Date Jenny Sylvester III, MD [address] [place] [address] PCP - General 11/18/05 documented as of this encounter
--- OUTSIDE RECORDS SUMMARY | 2023-07-22 07:12 | External Medical Summary | Summary of Care ---
Author Name Unknown Organization [facility] Address [address] [facility] [place] [address] Phone [phone] Care Team Providers Care Electrician Manager Name Role Phone Wendy GONZALES MD, Jenny Hung Primary Care Provider [phone] Reason for Visit * Reason Comments eRx-Medication Refill Encounter Details Date Type Department Care Team (Late st Contact Info) Description 07/03/2023 Refill Family Practice [facility] [place] [address] [facility] [place] [address] Jenny Sylvester III, MD 200 [place] [address] Allergies No known active allergiesdocumented as of this encounter (statuses as of 07/04/2023) Medications Medication Sig Dispensed Refills Start Date [...] 07/05/2022 Active LORazepam 0.5 MG Oral Tablet (Ativan)Indicatio [...] EVERY MORNING 30 Tablet 0 07/04/2023 Active Atorvastatin Calcium 20 MG Oral Tablet (Lipitor) TAKE ONE TABLET BY MOUTH EVERY MORNING 30 Tablet 0 05/05/2023 07/04/19 24 Discontinued documented as of this encounter (statuses as of 07/04/2023) Active Problems Problem Noted Date Diagnosed Date [...] as of this encounter (statuses as of 07/04/2023) Resolved Problems Problem Noted Date Diagnosed Date [...] as of this encounter (statuses as of 07/04/2023) Immunizations Name Administration Dates Next Due COVID-19 mRNA, LNP-s, No Pre serve, 2-Dose Series (Moderna) 10/04/2020,09/06/2020 COVID-19, mRNA, LNP-s, PF, B ooster, 100mcg/0.5mg (Moderna) 06/03/2021 Pneumococcal Conjugate Vacci ne, 20-valent ([id number]) 02/02/2023 Pneumococcal Polysaccharide PPV23 (Pneumovax) 11/28/2010 Seasonal [...] encounter Miscellaneous Notes * Telephone Encounter - Jenny Sylvester III, MD - 07/04/2023 10:14 AM ESTSigned Prescriptions: Disp Refills Atorvastatin Calcium 20 MG Oral Tablet (Li*30 Tab*0 Sig: TAKE ONE TABLET BY MOUTH EVERY MORNINGAuthorizing Provider: JENNY SYLVESTER III * Telephone Encounter - Jaclyn Norton, revenue cycle consultant - 07/04/2023 8:04 AM EST Pending Prescriptions: Disp Refills Atorvastatin Calcium 20 MG Oral Tablet [Ph*30 Tab*0 Sig: TAKE ONE TABLET BY MOUTH EVERY MORNING * Telephone Encounter - Jaclyn Norton revenue cycle consultant - 07/04/2023 8:02 AM EST Received message from [facility] regarding patient needing labs. Placed call to patient to advise. Left message on voicemail advising of required labs Thank you for your assistance Jaclyn Norton [facility] Nurse II [facility] ([facility]) (Formerly Telepharmacy) 07/04/2023,8:02 AM * Telephone Encounter - Geneva Daigle [facility] - 07/03/2023 8:34 PM ESTPending Prescriptions: Disp Refills Atorvastatin Calcium 20 MG Oral Tablet [Ph*30 Tab*0 Sig: TAKE ONE TABLET BY MOUTH EVERY MORNING * Telephone Encounter - Geneva Daigle RPh - 07/03/2023 8:32 PM EST 3rd Attempt Unable to authorize medication refills for pended medication(s) at this time. Per refill protocol patient should have lipid panel on file within past year. Reviewed AMP report, Care Gaps/Health Maintenance, medications list, and for any routine labs typically ordered for this patient. Lab orders placed. Please contact patient to advise of labs ordered for blood draw. Recommend patient to fast if able for labs. Patient may still have water and regular medications. Advise to obtain labs before requesting the next refill. After contacting patient, please forward request to Jenny Sylvester III, MD. Thanks, Geneva Daigle, PharmD Clinical Pharmacist [facility] ([facility] - Formerly Telepharmacy) [phone] 07/03/2023 8:33 PM documented in this encounter Plan of Treatment Upcoming Encounters Date Type Department Care Team (Late st Contact Info) Description 07/15/2023 10:45 AM EST Imaging Radiology [address] [place] [address] Scheduled Procedures Name Priority Associated Diagnoses Date/Ti me COLONOSCOPY FLEXIBLE PROXIMAL DIAGNOSTIC Recall History of colon polyps Health Maintenance Due Date Last Done Comments DISCUSS TOBACCO CESSATION (REFER TO SMARTSET #2733) 1965 Hepatitis B (1 of 3 - 3-dose series) 1966 Albumin/Creatinine Ratio 1984 Diabetic Eye Exam 1984 Hepatitis C Screening 1984 HPV/Co-Test 1996 COLONOSCOPY-ANNUAL AGES 18-100 07/31/2021 07/31/2020, 07/31/2020, 12/03/2016, Additional history exists Cervical Cancer Screening 04/21/2022 Pap Smear 04/21/2022 04/21/2019, 1206/2014, 06/11/2015, Additional history exists Mammogram 11/25/2022 11/25/2021, 06/0 07/2020, 06/01/2019, Additional history exists COVID-19 Vaccine ( - season) 2023 06/03/2021, 10/04/2020, 09/06/2020 HbA1c 07/01/2023 [...] filedocumented as of this encounter Care Teams Electrician Manager Relationship Specialty Start Date End Date Jenny Sylvester III, MD [address] [facility] [place] [address] PCP - General 11/18/05 documented as of this encounter
--- OUTSIDE RECORDS SUMMARY | 2023-07-22 07:12 | External Medical Summary | Summary of Care ---
Author Name Unknown Organization [facility] Address [address] [facility] [place] [address] Phone [phone] Care Team Providers Care Inverform Machine Operator Name Role Phone Wendy GONZALES MD, Robbin Hung Primary Care Provider [phone] Reason for Visit * Reason Onset Date Comments Precert In Process 04/15/2023 Synvisc one C BC / [employer] Stella Encounter Details Date Type Department Care Team (Late st Contact Info) Description 04/15/[address] [facility] [address] [place] [address] Jamil Marcus MD [address] [place] [address] Precert In Process (Synvisc one CBC / Amer... Allergies No known active allergiesdocumented as of this encounter (statuses as of 07/15/2023) Medications Medication Sig Dispensed Refills Start Date [...] Atorvastatin Calcium 20 MG Oral Tablet (Lipitor) Take by mouth 1 Tablet in the morning. 30 Tablet 11 04/17/2022 05/05/20 23 Discontinued Metoprolol Tartrate 50 MG Oral Tablet (Lopressor) TAKE ONE TABLET BY MOUTH EVERY MORNING AND 1 TABLET BEFORE BEDTIME 180 Tablet 3 07/05/2022 07/11/19 24 Discontinued documented as of this encounter (statuses as of 07/15/2023) Active Problems Problem Noted Date Diagnosed Date [...] as of this encounter (statuses as of 07/15/2023) Resolved Problems Problem Noted Date Diagnosed Date [...] as of this encounter (statuses as of 07/15/2023) Immunizations Name Administration Dates Next Due COVID-19 mRNA, LNP-s, No Pre serve, 2-Dose Series (Moderna) 10/04/2020,09/06/2020 COVID-19, mRNA, LNP-s, PF, B ooster, 100mcg/0.5mg (Moderna) 06/03/2021 Pneumococcal Conjugate Vacci ne, 20-valent ([id number]) 02/02/2023 Pneumococcal Polysaccharide PPV23 (Pneumovax) 11/28/2010 Seasonal Influenza Virus Vac cine, Unspecified Formulation 04/05/2020,04/04/2019,07/09/2018,07/13,03/22/2016,03/11/2010,02/22/2009 Seasonal Influenza, PF, 6 M & above, IM , (FluLaval or Fluzone) 04/04/2019,07/09/2018,07/13/2017 Seasonal Influenza, Quadriva lent, No Preserve, IM 04/05/2020,03/22/2016,06/07/2015 Seasonal Influenza, Split, I IV3, With Preserve, Inj 03/17/2013,04/23/2012,04/02/2011,03/11,02/22/2009 TD - Tetanus/Diptheria (ADULT) 07/09/2018 TD, Preservative Free 07/09/2018 TDAP (age 11 and older)(Adacel) 11/20/2007 Zoster Vaccine Recombinant (Shingrix) 02/02/2023 documented as of this encounter Social History [...] encounter Miscellaneous Notes * Telephone Encounter - Stella Haines OSA - 04/21/2023 2:29 PM EDT Hi, I can't advise dr what to choose but the only drug that both plans cover is euflexxa. Auth reqd for secondary insurance. Please advise if euflexxa is ok? Thanks * Telephone Encounter - Mery Murrell LPN - 04/20/2023 3:15 PM EDT synvisc one * Telephone Encounter - Stella Haines OSA - 04/20/2023 2:46 PM EDT Preferred with capital blue are the following: euflexxa,synvisc,synvisc one Preferred with PDL under medicaid plan Durolane SyringePA, Euflexxa SyringePA, Gelsyn-3 SyringePA, Please advise agent * Telephone Encounter - Mery Murrell LPN - 04/17/2023 4:35 PM EDT Yes please * Telephone Encounter - Stella Haines OSA - 04/17/2023 3:17 PM EDT Referral for euflexxa was done. Just to clarify now I'm to term auth for euflexxa And put In auth for Synvisc One? Return answer to [phone] Thanks * Telephone Encounter - Mery Murrell LPN - 04/17/2023 2:52 PM EDT Per verbal order Dr. Marcus please apply for synvics one Please advised if this is approved * Telephone Encounter - Anny Hunt LPN - 04/16/2023 12:06 PM EDT Please precert Euflexxa. thanks * Telephone Encounter - Trina Harper OSA - 04/16/2023 11:19 AM EDT [employer] [employer] PREFERRED VISCO MEDS Euflexxa, Synvisc, Synvisc One [place] [phone]. * Telephone Encounter - Anny Hunt LPN - 04/16/2023 11:03 AM EDT Orthopaedics Pre-Cert Request Medication/Disease State Information: Medication: Hyaluronate- Eufexxa Is there radiological proof(x-ray, cat scan, mri of osteoarthritis? yesIf yes, date of scan: xray 04/07/23 Has the patient tried physical therapy?yes Has the patient tried tylenol or NSAIDs?yes Has the patient failed corticosteroid injections of the knee?yes Has the patient tried weight loss?no Has the patient tried knee bracing?yes Has the patient tried a home exercise program?yes Diagnosis (including ICD-10): Unilateral primary osteoarthritis, left knee- M17.12 Medication(s) Tried/Failed/Contraindicated: Tylenol, Meloxicam 15 mg See corresponding visit note(s) for additional supporting clinical information. Office Information: Prescriber: Jamil Marcus * Telephone Encounter - Trina Harper OSA - 04/16/2023 8:28 AM EDT That is not the correct smart phrase. The questions one the above smart phrase and not answered. * Telephone Encounter - Therese Diaz TECH - 04/16/2023 7:53 AM EDT Orthopaedics Pre-Cert Request Medication/Disease State Information: Medication: Hyaluronate- Euflexxa (J7323): inject 20 mg (2 mL) once weekly for 3 weeks (total of 3 injections). Route to [id number] @KNEEINJAUTH@ Diagnosis (including ICD-10): Unilateral primary osteoarthritis, left knee- M17.12 Medication(s) Tried/Failed/Contraindicated: intra-articular steroid injection, meloxicam, bracing See corresponding visit note(s) for additional supporting clinical information. Office Information: Prescriber: Jamil Marcus MD * Telephone Encounter - Trina Harper OSA - 04/16/2023 5:26 AM EDT [employer] PREFERRED VISCO MEDS Euflexxa, Synvisc, Synvisc One Please use smart phrase .orthop[place]ert[place] [phone] when it is [place] [phone]. * Telephone Encounter - Therese Diaz TECH - 04/15/2023 3:33 PM EDT Orthopaedics Pre-Cert Request Medication/Disease State Information: Medication: Hyaluronate- Gelsyn-3 (J7328): inject 16.8 mg (2 mL) once weekly for 3 weeks (total of 3 injections). Route to [id number] @KNEEINJAUTH@ Diagnosis (including ICD-10): Unilateral primary osteoarthritis, left knee- M17.12 Medication(s) Tried/Failed/Contraindicated: intra-articular steroid injection, meloxicam, bracing See corresponding visit note(s) for additional supporting clinical information. Office Information: Prescriber: Jamil Marcus MD documented in this encounter Plan of Treatment Scheduled Procedures Name Priority Associated Diagnoses Date/Ti me COLONOSCOPY FLEXIBLE PROXIMAL DIAGNOSTIC Recall History of colon polyps Health Maintenance Due Date Last Done Comments DISCUSS TOBACCO CESSATION (REFER TO SMARTSET #3291) 1965 Hepatitis B (1 of 3 - 3-dose series) 1966 Albumin/Creatinine Ratio 1984 Diabetic Eye Exam 1984 Hepatitis C Screening 1984 HPV/Co-Test 1996 COLONOSCOPY-ANNUAL AGES 18-100 07/31/2021 07/31/2020, 07/31/2020, 12/03/2016, Additional history exists Cervical Cancer Screening 04/21/2022 Pap Smear 04/21/2022 04/21/2019, 05/23, 06/11/2015, Additional history exists Mammogram 11/25/2022 07/15/2023, 06/0 11/2021, 11/21/2020, Additional history exists COVID-19 Vaccine ( season) [...] filedocumented as of this encounter Care Teams Inverform Machine Operator Relationship Specialty Start Date End Date Robbin Nguyen III, MD [address] [place] [address] PCP - General 11/18/05 documented as of this encounter
--- OUTSIDE RECORDS SUMMARY | 2023-07-22 07:13 | External Medical Summary | Summary of Care ---
Author Name Unknown Organization [facility] Address [address] [facility] [place] [address] Phone [phone] Care Team Providers Care Electric Deicer Assembler Name Role Phone Wendy GONZALES MD, Robbin Hung Primary Care Provider [phone] Reason for Visit * Reason Onset Date Comments Immunizations 05/06/2023 Shingrix Encounter Details Date Type Department Care Team (Late st Contact Info) Description 05/06/2023 9:00 AM EST Nurse Only Ancillary [facility] [address] [place] [address] [place], Nurse Fam Prac [facility] [address] [facility] [place] [address] Immunizations (Shingrix) Allergies No known active allergiesdocumented as of this encounter (statuses as of 05/11/2023) Medications Medication Sig Dispensed Refills Start Date End Date Status PRILOSEC CPDR 20 MG ORIndications:Esoph ageal reflux one tab by mouth daily at bedtime 34 5 02/01/2001 Active Additional Information Patient taking differently: Indications: as needed, Reported on 07/24/2020 Acetaminophen ER (TYLENOL ARTHRITIS PAIN) 650 MG TBCR Take 2 Tabs by mouth 2 times a day. 0 03/09/2017 Active aspirin enteric coated 81 MG TBEC Take 1 Tab by mouth daily. 0 06/20/2019 Active Vitamin D (Cholecalciferol) 50 MCG (1999 UT) Oral Capsule Take by mouth . 0 Active Vitamin B-12 100 MCG Oral Tablet (vitamin B-12) Take by mouth 100 mcg in the morning. 0 Active Cyclobenzaprine HCl [...] as of this encounter (statuses as of 05/11/2023) Active Problems Problem Noted Date Diagnosed Date [...] low back pain with right-sided sciatica 05/18/2021 Prediabetes 07/13/2017 Morbid obesity due to excess calories 11/19/2016 Hypercholesteremia 12/04/2014 Toxic diffuse goiter 11/10/2010 BMI 35-39 ISOLATED (SEE ACTUAL BMI) 12/03/2009 Overview: Per Obesity Protocol, #19 Family history of ischemic heart disease 009 ADVANCE DIRECTIVE INFORMATION 11/18/2005 Overview: No, Advance Directive brochure offered , patient declined. Reflux esophagitis 09/17/2000 CARPAL TUNNEL SYNDROME, right 09/17/2000 documented as of this encounter (statuses as of 05/11/2023) Resolved Problems Problem Noted Date Diagnosed Date [...] adult 10/30/2020 12/06/2020 Overview: Per Obesity protocol documented as of this encounter (statuses as of 05/11/2023) Immunizations Name Administration Dates Next Due COVID-19 mRNA, LNP-s, No Pre serve, 2-Dose Series (Moderna) 10/04/2020,09/06/2020 COVID-19, mRNA, LNP-s, PF, B ooster, 100mcg/0.5mg (Moderna) 06/03/2021 Pneumococcal Conjugate Vacci ne, 20-valent ([id number]) 02/02/2023 Pneumococcal Polysaccharide PPV23 (Pneumovax) 11/28/2010 SEASONAL INFLUENZA, PF, 6 M & Above, IM , (FLULAVAL or FLUZONE) 04/04/2019,07/09/2018,07/13/2017 Seasonal Influenza Virus Vac cine, Unspecified Formulation 04/05/2020,04/04/2019,07/09/2018,07/13,03/22/2016,03/11/2010,02/22/2009 Seasonal Influenza, Quadriva lent, No Preserve, IM [...] on file documented as of this encounter Patient Instructions * Patient Instructions* Julia Wagoner LPN - 05/06/2023 9:13 AM EST ~~PATIENT INSTRUCTIONS FOR SHINGRIX VACCINE~~ Possible side effects of Shingrix vaccine, (shingles), are usually mild and can include: 1. Soreness or redness at injection site 2. Low grade fever 3. Body aches You may use a fever / pain reducing medication as needed for these symptoms. LET YOUR DOCTOR KNOW IMMEDIATELY IF YOU HAVE DIFFICULTY BREATHING OR SWALLOWING, EXPERIENCE ITCHINGOF FEET OR HANDS, HAVE SWELLING OF EYES, FACE OR INSIDE OF NOSE. documented in this encounter Progress Notes * Julia Wagoner LPN - 05/06/2023 9:12 AM EST Does the patient have active shingles? No If, yes, patient must wait to receive vaccine till after rash is gone. Does the patient have an illness today with a fever more than 101?F? No Has the patient ever had a serious allergic reaction after receiving a vaccination? No Has the patient had a blood test showing they are not immune to Chicken Pox (rare)? No If yes, should get Chicken pox vaccine instead of shingrix. Verified patient has prescription/drug coverage. Patient has been informed that [employer] copays are close to $0. In most cases copays will be around $10. The maximum co-pay patients may get could as high as $200. no Shingrix Vaccine Information Sheet has been provided. Julia Wagoner LPN 05/06/2023 9:12 AM IMMUNIZATION ADMINISTRATION DOCUMENTATION Time Out Procedure Performed: Yes Patient Identified (Ask Name/Date of ): Yes Patient allergic to latex?No VFC Stock? No Immunization(s) verified: Yes, Immunization Name: Shingrix, VIS Sheet(s) given: Yes Verified Side and Site: Yes Verified Shot(s) with Parent(s)/Patient: Yes Shingrix was administered per clinic protocol. Patient received the Shingrix VIS (Vaccine Information Sheet). Julia Wagoner LPN, 05/06/2023, 9:13 AM documented in this encounter Nursing Notes * Julia Wagoner LPN - 05/06/2023 9:08 AM EST Pre-Administration Time Out Procedure Performed: Yes Patient Identified (Ask Name/Date of ): Yes Does the patient have a fever greater than 101 degrees today? No Patient allergic to latex? No Has the patient ever fainted after receiving an injection? No VFC Stock: No Immunization(s) verified: Yes, Immunization Name: Shingrix, VIS Sheet(s) given: Yes Verified Side and Site: Yes Verified Shot(s) with Parent(s)/Patient: Yes documented in this encounter Plan of Treatment Upcoming Encounters Date Type Department Care Team (Late st Contact Info) Description 06/01/2023 2:00 PM EST Office Visit Orthopaedics [facility] [address] [place] [address] Jamil Marcus MD [address] [place] [address] 07/15/2023 10:45 AM EST Imaging Radiology [address] [place] [address] Scheduled Procedures Name Priority Associated Diagnoses Date/Ti me COLONOSCOPY FLEXIBLE PROXIMAL DIAGNOSTIC Recall History of colon polyps Health Maintenance Due Date Last Done Comments DISCUSS TOBACCO CESSATION (REFER TO SMARTSET #6681) 1965 Hepatitis B (1 of 3 - 3-dose series) 1966 Albumin/Creatinine Ratio 1984 Diabetic Eye Exam 1984 Hepatitis C Screening 1984 HPV/Co-Test 1996 COLONOSCOPY-ANNUAL AGES 18-100 07/31/2021 07/31/2020, 07/31/2020, 12/03/2016, Additional history exists Cervical Cancer Screening 04/21/2022 Pap Smear 04/21/2022 04/21/2019, 05/23, 06/11/2015, Additional history exists Mammogram 11/25/2022 11/25/2021, 07/2020, 06/01/2019, Additional history exists COVID-19 Vaccine ( season) 2023 06/03/2021, 10/04/2020, 09/06/2020 Influenza Vaccine (FLU shot) (#1) 2023 04/05/2020, 04/05/2020, 04/04/2019, Additional history exists HbA1c 07/01/2023 12/29/2022, 08/21, 06/28/2020, Additional history [...] 02/02/2023, 11/28/2010 Zoster Vaccines Completed 05/06/2023, 02/02/2023 GARDASIL-HPV IMMUNIZATION SERIES Aged Out No longer eligible based on patient's age to complete this topic MENINGOCOCCAL (MENACTRA/MENVEO) Aged Out No longer eligible based on patient's age to complete this topic documented as of this encounter Medical Devices Not on filedocumented as of this encounter Visit Diagnoses Diagnosis Need for vaccination for zoster- Primary Need for prophylactic vaccination and inoculation against other viral diseases documented in this encounter Care Teams Electric Deicer Assembler Relationship Specialty Start Date End Date Robbin Nguyen III, MD [address] [place] [address] PCP - General 11/18/05 documented as of this encounter
--- OUTSIDE RECORDS SUMMARY | 2023-07-22 07:13 | External Medical Summary | Summary of Care ---
Author Name Unknown Organization [facility] Address [address] [facility] [place] [address] Phone [phone] Care Team Providers Care Fireman Helper Name Role Phone Wendy GONZALES MD, Jenny Hung Primary Care Provider [phone] Reason for Visit * Reason Comments eRx-Medication Refill Encounter Details Date Type Department Care Team (Late st Contact Info) Description 02/11/2023 Refill Family Practice [facility] [place] [address] [facility] [place] [address] Jenny Sylvester III, MD 200 [place] [address] Encounter for long-term (current) use of medications* Allergies No known active allergiesdocumented as of this encounter (statuses as of 05/08/2023) Medications Medication Sig Dispensed Refills Start Date [...] WITH BREAKFAST 180 Tablet 0 02/11/2023 Active Lisinopril 20 MG Oral Tablet (Prinivil) Take by mouth 1 Tablet in the morning. 90 Tablet 3 04/11/2022 03/13/20 23 Discontinued Atorvastatin Calcium 20 MG Oral Tablet (Lipitor) Take by mouth 1 Tablet in the morning. 30 Tablet 11 04/17/2022 05/05/20 23 Discontinued metFORMIN HCl ER 500 MG Oral Tablet Extended Release 24 Hour (Glucophage XR) Take 2 Tablets by mouth daily with breakfast. 180 Tablet 0 11/11/2022 02/12/20 23 Discontinued Meloxicam 15 MG Oral Tablet TAKE ONE TABLET BY MOUTH EVERY MORNING FOR PAIN 90 Tablet 0 12/15/2022 03/11/20 23 Discontinued documented as of this encounter (statuses as of 05/08/2023) Active Problems Problem Noted Date Diagnosed Date Body mass index (BMI) of 45.0 to 49.9 in adult 0 03/02/2023 Overview: Per Obesity protocol - Per Obesity protocol - Per Obesity protocol - Per Obesity protocol Type 2 diabetes mellitus with diabetic neuropath y 12/29/2022 Type 2 diabetes mellitus wit h hemoglobin A1c goal of less than 7.0% 01/27/2022 DDD (degenerative disc disease), lumbar 11/27/20 21 Acute right-sided low back pain with [...] as of this encounter (statuses as of 05/08/2023) Resolved Problems Problem Noted Date Diagnosed Date [...] as of this encounter (statuses as of 05/08/2023) Immunizations Name Administration Dates Next Due COVID-19 mRNA, LNP-s, No Pre serve, 2-Dose Series (Moderna) 10/04/2020,09/06/2020 COVID-19, mRNA, LNP-s, PF, B ooster, 100mcg/0.5mg (Moderna) 06/03/2021 Pneumococcal Conjugate Vacci ne, 20-valent ([id number]) 02/02/2023 Pneumococcal Polysaccharide PPV23 (Pneumovax) 11/28/2010 SEASONAL [...] encounter Miscellaneous Notes * Telephone Encounter - Magalis Lilly, hadoop developer - 05/08/2023 6:47 PM EST Received message from [facility] regarding patient needing labs. Letter was sent out to patient to advise. Thank you, Magalis Lilly Manufacturing Advisor [facility] 05/08/2023,6:47 PM * Telephone Encounter - Savanah Rios [facility] - 05/05/2023 6:58 AM EST Patient will be contacted in future encounter Thank You, Savanah Rios [facility] Clinical Pharmacist [facility] ([facility]) (formerly [employer]) [phone] 05/05/2023, 6:58 AM * Telephone Encounter - Jennifer Roberts [facility] - 02/11/2023 2:32 PM EDTSigned Prescriptions: Disp Refills metFORMIN HCl ER 500 MG Oral Tablet Extend*180 Ta*0 Sig: TAKE TWO TABLETS BY MOUTH WITH BREAKFAST Authorizing Provider: JENNY SYLVESTER III Ordering User: JENNIFER ROBERTS * Telephone Encounter - Jennifer Roberts [facility] - 02/11/2023 2:29 PM EDT Provided 90 days supply with 0 refill(s). Per refill protocol patient should have Lipid panel, B12 on file within past year. Reviewed AMP report, Care Gaps/Health Maintenance, medications list, and for any routine labs typically ordered for this patient. Lab orders placed. Please contact patient to advise of labs ordered for blood draw. Recommend patient to fast if able for labs. Patient may still have water and regular medications. Advise to obtain labs before requesting the next refill. Thanks, Jennifer Roberts PharmD Clinical Pharmacist [facility] ([facility]) (formerly [employer] [facility] [phone] 02/11/2023, 2:31 PM documented in this encounter Plan of Treatment Upcoming Encounters Date Type Department Care Team (Late st Contact Info) Description 06/01/2023 2:00 PM EST Office Visit Orthopaedics [facility] [address] [place] [address] Jamil Marcus MD [address] [place] [address] 07/15/2023 10:45 AM EST Imaging Radiology [address] [place] [address] Scheduled Orders Name Type Priority Associated Diagnoses Orde r Schedule LIPID PANEL WITH DIRECT LDL IF TG IS HIGH Lab Routine Encounter for long-term (current) use of medications Expected: 02/18/2023 (Approximate), Expires: 02/12/2024 VITAMIN B12 Lab Routine Encounter for long-term (current) use of medications Expected: 02/18/2023 (Approximate), Expires: 02/12/2024 Scheduled Procedures Name Priority Associated Diagnoses Date/Ti me COLONOSCOPY FLEXIBLE PROXIMAL DIAGNOSTIC Recall History of colon polyps Health Maintenance Due Date Last Done Comments DISCUSS TOBACCO CESSATION (REFER TO SMARTSET #2379) 1965 Hepatitis B (1 of 3 - 3-dose series) 1965 Albumin/Creatinine Ratio 1984 Diabetic Eye Exam 1984 Hepatitis C Screening 1984 HPV/Co-Test 1996 COLONOSCOPY-ANNUAL AGES 18-100 07/31/2021 07/31/2020, 07/31/2020, 12/03/2016, Additional history exists Cervical Cancer Screening 04/21/2022 Pap Smear 04/21/2022 04/21/2019, 05/23, 06/11/2015, Additional history exists Mammogram 11/25/2022 11/25/2021, 06/07/2020, 06/01/2019, Additional history exists COVID-19 Vaccine ( [...] as of this encounter Visit Diagnoses Diagnosis Encounter for long-term (current) use of medications- Primary Encounter for long-term (current) use of other medications documented in this encounter Care Teams Fireman Helper Relationship Specialty Start Date End Date Jenny Sylvester III, MD [address] [place] [address], [place] [address] PCP - General 11/18/05 documented as of this encounter
--- OUTSIDE RECORDS SUMMARY | 2023-07-22 07:13 | External Medical Summary | Summary of Care ---
Author Name Unknown Organization [facility] Address [address] [facility] [place] [address] Phone [phone] Care Team Providers Care Financial Quantitative Analyst Name Role Phone Wendy GONZALES MD, Robbin Hung Primary Care Provider [phone] Reason for Visit * Reason Comments Follow Up Left knee * Precert (Within 10 days (routine)) - Authorized Specialty Diagnoses / Procedures Referred By Pedro t Referred To Contact Diagnoses Unilateral primary osteoarthritis, left knee Procedures [place] EUFLEXXA INJ PER DOSE Jamil Marcus MD [address] [place] [address] Jamil Marcus MD [address] [place] [address] Referral ID Status Reason Start Date Expiration Date V isits Requested Visits Authorized [id number] Authorized Precert 04/16/2023 04/16/2024 999 [id number] Encounter Details Date Type Department Care Team (Latest Contact Info) Description 06/01/2023 2:00 PM EST Office Visit Orthopaedics [facility] [address] [place] [address] Jamil Marcus MD [address] [place] [address] Primary osteoarthritis of left knee* Allergies No known active allergiesdocumented as of this encounter (statuses as of 06/01/2023) Medications Medication Sig Dispensed Refills Start Date [...] EVERY MORNING 30 Tablet 0 05/05/2023 Active Hospital, Clinic, or Other Facility Administered Medication Ordered Dose Route Frequency Start Date End Date Status Hylan G-F 20 (Synvisc-Synvisc One) 48 MG/6ML inj 48 mgIndications:Primary osteoarthritis of left knee 48 mg IX ONCE 06/01/2023 06/01/20 23 Ended documented as of this encounter (statuses as of 06/01/2023) Active Problems Problem Noted Date Diagnosed Date [...] as of this encounter (statuses as of 06/01/2023) Resolved Problems Problem Noted Date Diagnosed Date [...] as of this encounter (statuses as of 06/01/2023) Immunizations Name Administration Dates Next Due COVID-19 mRNA, LNP-s, No Pre serve, 2-Dose Series (Moderna) 10/04/2020,09/06/2020 COVID-19, mRNA, LNP-s, PF, B ooster, 100mcg/0.5mg (Moderna) 06/03/2021 Pneumococcal Conjugate Vacci ne, 20-valent ([id number]) 02/02/2023 Pneumococcal Polysaccharide PPV23 (Pneumovax) 11/28/2010 SEASONAL [...] this encounter Patient Instructions * Patient Instructions* Jamil Marcus MD - 06/01/2023 1:48 PM EST Please message or call me in 6 weeks to let me know how you are doing. If these injections help they can be done every 6 months if needed. documented in this encounter Progress Notes * Jamil Marcus MD - 06/01/2023 1:46 PM EST Pt Name: Jennifer Hernández Diagnosis: OA left knee. The patient is here for the single of a series of Synvisc ONE injections. There is no sign of infection in the injected knee. A timeout was called immediately prior to the procedure, to confirm the correct patient, procedure,and site. The site was marked by the physician prior to the procedure. Site was identified: knee: Left Procedure: Under sterile fashion, a 6 ml vial of Synvisc ONE was injected intra- articularly into the knee. Patient tolerated this well. Assessment: OA LEFT knee. Plan: The patient will message me in 6 weeks. Aware these can be done every 6 months if needed. Jamil Marcus MD 06/01/2023 1:46 PM documented in this encounter Nursing Notes * Jeane Royal, MED ASSIST - 06/01/2023 1:43 PM EST Patient presents today for left knee synvisc one injection. documented in this encounter Plan of Treatment Upcoming Encounters Date Type Department Care Team (Late st Contact Info) Description 07/15/2023 10:45 AM EST Imaging Radiology [address] [facility] [place] [address] Scheduled Procedures Name Priority Associated Diagnoses Date/Ti me COLONOSCOPY FLEXIBLE PROXIMAL DIAGNOSTIC Recall History of colon polyps Health Maintenance Due Date Last Done Comments DISCUSS TOBACCO CESSATION (REFER TO SMARTSET #0081) 1965 Hepatitis B (1 of 3 - [...] as of this encounter Visit Diagnoses Diagnosis Primary osteoarthritis of left knee- Primary Primary localized osteoarthrosis, lower leg documented in this encounter Administered Medications Inactive Administered Medications - up to 3 most recent administrations Medication Order MAR Action Action Date Dose Rate Site Hylan G-F 20 (Synvisc-Synvisc One) 48 MG/6ML inj 48 mg 48 mg, Intra-Articular, ONCE, On 06/01/23 at 1430, For 1 dose Given 06/01/2023 1:51 PM EST 48 mg Knee Left documented in this encounter Care Teams Financial Quantitative Analyst Relationship Specialty Start Date End Date Robbin Nguyen III, MD [address] [place] [address] PCP - General 11/18/05 documented as of this encounter
--- OUTSIDE RECORDS SUMMARY | 2023-07-22 07:13 | External Medical Summary | Summary of Care ---
Author Name Unknown Organization [facility] Address [address] [facility] [place] [address] Phone [phone] Care Team Providers Care Archaeology Professor Name Role Phone Wendy GONZALES MD, Robbin Hung Primary Care Provider [phone] Reason for Visit * Reason Onset Date Comments Health Maintenance 06/08/2023 Encounter Details Date Type Department Care Team (Late st Contact Info) Description 06/08/2023 Telephone Family Practice [facility] [place] [address] [facility] [place] [address] Robbin Nguyen III, MD [address] [facility] [place] [address] Health Maintenance Allergies No known active allergiesdocumented as of this encounter (statuses as of 06/08/2023) Medications Medication Sig Dispensed Refills Start Date [...] as of this encounter (statuses as of 06/08/2023) Active Problems Problem Noted Date Diagnosed Date [...] as of this encounter (statuses as of 06/08/2023) Resolved Problems Problem Noted Date Diagnosed Date [...] as of this encounter (statuses as of 06/08/2023) Immunizations Name Administration Dates Next Due COVID-19 mRNA, LNP-s, No Pre serve, 2-Dose Series (Moderna) 10/04/2020,09/06/2020 COVID-19, mRNA, LNP-s, PF, B ooster, 100mcg/0.5mg (Moderna) 06/03/2021 Pneumococcal Conjugate Vacci ne, 20-valent ([id number]) 02/02/2023 Pneumococcal Polysaccharide PPV23 (Pneumovax) 11/28/2010 Seasonal [...] encounter Miscellaneous Notes * Telephone Encounter - Ranjan MARY Mendoza - 06/08/2023 9:31 AM EST Care Gaps Comprehensive Care Outreach Last Office/Telemedicine Visit: 05/18/2023 (in office), Visit date not found (telemedicine) Next Office Visit: Visit date not found Hemoglobin AIC Results: Lab Results Component Value Date/Time HEMOGLOBIN A1C - [facility] 6.2 (H) 12/29/2022 01:52 PM HEMOGLOBIN A1C - [facility] 7.1 (H) 09/16/2021 08:43 AM HEMOGLOBIN A1C - [facility] 6.3 (H) 06/28/2020 12:33 PM HEMOGLOBIN A1C - [facility] 6.2 (H) 07/09/2018 02:05 PM HEMOGLOBIN A1C - [facility] 5.4 10/19/2013 10:20 AM Reviewed Health Maintenance below: Health Maintenance Topic Date Due Hepatitis B (1 of 3 - 3-dose series) Never done DISCUSS TOBACCO CESSATION (REFER TO SMARTSET #3291) Never done Diabetic Eye Exam Never done Albumin/Creatinine Ratio Never done Hepatitis C Screening Never done COLONOSCOPY-ANNUAL AGES 18-100 07/31/2021 Cervical Cancer Screening 04/21/2022 Mammogram 11/25/2022 Influenza Vaccine (FLU shot) (1) 02/20/2023 COVID-19 Vaccine ( season) 2023 HbA1c 07/01/2023 Lipid Panel 07/09/2023 Ov Labs Mamm Pap Colon due in 26 per gastro letter eye Care Gap Outreach Action Taken: Left message documented in this encounter Plan of Treatment Upcoming Encounters Date Type Department Care Team (Late st Contact Info) Description 07/15/2023 10:45 AM EST Imaging Radiology [address] [place] [address] Scheduled Procedures Name Priority Associated Diagnoses Date/Ti [...] 07/2020, 06/01/2019, Additional history exists COVID-19 Vaccine (4 - 2022-24 season) 2023 06/03/2021, 10/04/2020, 09/06/2020 Influenza Vaccine [...] filedocumented as of this encounter Care Teams Archaeology Professor Relationship Specialty Start Date End Date Wendy GONZALES, Robbin Hung MD [address] [place] [address] PCP - General 11/18/05 documented as of this encounter
--- OUTSIDE RECORDS SUMMARY | 2023-07-22 07:13 | External Medical Summary | Summary of Care ---
Author Name Unknown Organization [facility] Address [address] [facility] [place] [address] Phone [phone] Care Team Providers Care Boat Loader Name Role Phone Wendy GONZALES MD, Robbin Hung Primary Care Provider [phone] Encounter Details Date Type Department Care Team (Late st Contact Info) Description 05/29/2023 Telephone Orthopaedics [facility] [address] [place] [address] Jamil Marcus MD [address] [place] [address] Allergies No known active allergiesdocumented as of this encounter (statuses as of 05/29/2023) Medications Medication Sig Dispensed Refills Start Date [...] as of this encounter (statuses as of 05/29/2023) Active Problems Problem Noted Date Diagnosed Date [...] as of this encounter (statuses as of 05/29/2023) Resolved Problems Problem Noted Date Diagnosed Date [...] as of this encounter (statuses as of 05/29/2023) Immunizations Name Administration Dates Next Due COVID-19 mRNA, LNP-s, No Pre serve, 2-Dose Series (Moderna) 10/04/2020,09/06/2020 COVID-19, mRNA, LNP-s, PF, B ooster, 100mcg/0.5mg (Moderna) 06/03/2021 Pneumococcal Conjugate Vacci ne, 20-valent ([id number]) 02/02/2023 Pneumococcal Polysaccharide PPV23 (Pneumovax) 11/28/2010 SEASONAL [...] encounter Miscellaneous Notes * Telephone Encounter - Jeane Royal, MED ASSIST - 05/29/2023 2:50 PM EST Patient scheduled for Synvisc one injection on Thursday with Dr. Marcus. No auth on file, auth was on file for Euflexxa which is incorrect. Called patients insurance and spoke with Sachi, call started at 1447. She verified the code [id number] for Synvisc one does not require prior authorization and is valid for buy and bill. Call ended at 1450, no reference number for call. documented in this encounter Plan of Treatment Upcoming Encounters Date Type Department Care Team (Late st Contact Info) Description 06/01/2023 2:00 PM EST Office Visit Orthopaedics [facility] [address] [place] [address] Jamil Marcus MD [address] [place] [address] 07/15/2023 10:45 AM EST Imaging Radiology [facility] [address] [facility] [address] [place] [address] Scheduled Procedures Name Priority Associated Diagnoses Date/Ti me COLONOSCOPY FLEXIBLE PROXIMAL DIAGNOSTIC Recall History of colon polyps Health Maintenance Due Date Last Done Comments DISCUSS TOBACCO CESSATION (REFER TO SMARTSET #7876) 1965 Hepatitis B (1 of 3 - [...] filedocumented as of this encounter Care Teams Boat Loader Relationship Specialty Start Date End Date Robbin Nguyen III, MD [address] [place] [address] PCP - General 11/18/05 documented as of this encounter
--- OUTSIDE RECORDS SUMMARY | 2023-07-22 07:13 | External Medical Summary | Summary of Care ---
Author Name Unknown Organization [facility] Address [address] [facility] [place] [address] Phone [phone] Care Team Providers Care Front Desk Administrator Name Role Phone Wendy GONZALES MD, Robbin Hung Primary Care Provider [phone] Reason for Visit * Reason Comments Follow Up Left knee * Precert (Within 10 days (routine)) - Authorized Specialty Diagnoses / Procedures Referred By Pedro t Referred To Contact Diagnoses Unilateral primary osteoarthritis, left knee Procedures [place] EUFLEXXA INJ PER DOSE Jamil Marcus MD [address] [place] [address] Jamil Marcus MD [address] [place] [address] Referral ID Status Reason Start Date Expiration Date V isits Requested Visits Authorized [id number] Authorized Precert 04/16/2023 04/16/[phone] Encounter Details Date Type Department Care Team (Latest Contact Info) Description 06/01/2023 2:00 PM EST Office Visit Orthopaedics [facility] [address] [place] [address] Jamil Marcus MD [address] [place] [address] Primary osteoarthritis of left knee* Allergies No [...] (Moderna) 06/03/2021 Pneumococcal Conjugate Vacci ne, 20-valent ([id number]) 02/02/2023 Pneumococcal Polysaccharide PPV23 (Pneumovax) 11/28/2010 SEASONAL [...] Description 07/15/2023 10:45 AM EST Imaging Radiology [address] [facility] [place] [address] Scheduled Procedures Name Priority Associated Diagnoses Date/Ti me COLONOSCOPY FLEXIBLE PROXIMAL DIAGNOSTIC Recall History of colon polyps Health Maintenance Due Date Last Done Comments DISCUSS TOBACCO CESSATION (REFER TO SMARTSET #0083) 1965 Hepatitis B (1 of 3 - [...] Left documented in this encounter Care Teams Front Desk Administrator Relationship Specialty Start Date End Date Robbin Nguyen III, MD [address] [place] [address] PCP - General 11/18/05 documented as of this encounter
--- OUTSIDE RECORDS SUMMARY | 2023-07-22 07:13 | External Medical Summary | Summary of Care ---
Author Name Unknown Organization [facility] Address [address] [facility] [place] [address] Phone [phone] Care Team Providers Care Speed Operator Name Role Phone Wendy GONZALES MD, Robbin Hung Primary Care Provider [phone] Reason for Visit * Reason Comments Acute Possible pink eye Encounter Details Date Type Department Care Team (Latest Contact Info) Description 05/18/2023 12:40 PM EST Office Visit Family Practice [facility] [place] [address] [facility] [place] [address] Angy Solorzano PA-C [address] [facility] [place] [address] Acute maxillary sinusitis, recurrence not specified*; Acute bacterial conjunctivitis of both eyes; Type 2 diabetes mellitus with hemoglobin A1c goal of less than 7.0% ([facility]) Allergies No known active allergiesdocumented as of this encounter (statuses as of 05/18/2023) Medications Medication Sig Dispensed Refills Start Date [...] EVERY MORNING 30 Tablet 0 05/05/2023 Active Azithromycin 250 MG Oral Tablet (Zithromax) Take 2 tabs by mouth on the first day, then 1 tab daily on days two through five 6 Tablet 0 05/18/2023 05/23/2023 Active Sulfacetamide Sodium 10 % Ophthalmic Solution Instill 2 Drops into both eyes in the morning and 2 Drops at noon and 2 Drops in the evening and 2 Drops before bedtime. Do all this for 7 days. In affected eye(s). 15 mL 0 05/18/2023 05/25/2023 Active documented as of this encounter (statuses as of 05/18/2023) Active Problems Problem Noted Date Diagnosed Date [...] as of this encounter (statuses as of 05/18/2023) Resolved Problems Problem Noted Date Diagnosed Date [...] as of this encounter (statuses as of 05/18/2023) Immunizations Name Administration Dates Next Due COVID-19 mRNA, LNP-s, No Pre serve, 2-Dose Series (Moderna) 10/04/2020,09/06/2020 COVID-19, mRNA, LNP-s, PF, B ooster, 100mcg/0.5mg (Moderna) 06/03/2021 Pneumococcal Conjugate Vacci ne, 20-valent ([id number]) 02/02/2023 Pneumococcal Polysaccharide PPV23 (Pneumovax) 11/28/2010 SEASONAL [...] Sign Reading Time Taken Comments Blood Pressure 106/70 05/18/2023 12:42 PM EST Pulse 68 05/18/2023 12:42 PM EST Temperature 36.4 C (97.5 F) 05/18/2023 1 2:42 PM EST Respiratory Rate 16 05/18/2023 12:4 2 PM EST Oxygen Saturation 95% 05/18/2023 12: 42 PM EST Inhaled Oxygen Concentration - - Weight 112.5 kg (248 lb 1.9 oz) 023 12:42 PM EST Height 157.5 cm (5' 2") 05/18/2023 12:4 2 PM EST Body Mass Index 45.38 05/18/2023 12:42 PM EST documented in this encounter Progress Notes * Angy Solorzano PA-C - 05/18/2023 12:57 PM EST Images from the original note were not included. History of Present Illness Jennifer Hernández is a 57 year old female that presents for Acute (Possible pink eye/) Patient is a 57 year old female who presents with respiratory symptoms which started on thanksgiving. Notes mattery eyes, headache, nasal congestion, pn drip, sore throat, Has tried mucinex D. Physical Exam Vitals: 05/18/23 1242 Temp: 36.4 C (97.5 F) Pulse: 68 Resp: 16 SpO2: 95% BP: 106/70 BMI: 45.37 BP Readings from Last 3 Encounters: 05/18/23 106/70 02/02/23 100/60 12/29/22 114/68 Wt Readings from Last 3 Encounters: 05/18/23 112.5 kg (248 lb 1.9 oz) 02/02/23 113.4 kg (250 lb 0.6 oz) 12/29/22 113.4 kg (250 lb 1.3 oz) General: alert, healthy, no distress, well nourished, well developed, and cooperative Head: Normocephalic, No masses, lesions, tenderness or abnormalities Eye Exam: PERRLA, extraocular movements intact, sclera clear, bilateral injection of conjunctiva Ears: External ears normal, Canals clear, R TM dull, L TM dull Nose: no purulent discharge, mucosal edema, mucosal erythema Oropharynx: no exudate, no erythema, lips, buccal mucosa, and tongue normal, and mucous membranes are moist Neck: supple, no adenopathy, no bruits, thyroid normal size, non-tender, without nodularity Heart: regular rate & rhythm, no murmur, and no gallops Lungs: chest symmetric with normal AP diameter, no chest deformities noted, normal respiratory rateand rhythm, no chest wall tenderness, diaphragmatic excursion normal, lungs clear to auscultation I have reviewed the following results: None Assessment and Plan Acute maxillary sinusitis, recurrence not specified (Primary) Acute bacterial conjunctivitis of both eyes Type 2 diabetes mellitus with hemoglobin A1c goal of less than 7.0% (HCC) Other orders - Azithromycin 250 MG Oral Tablet (Zithromax); Take 2 tabs by mouth on the first day, then 1 tab daily on days two through five - Sulfacetamide Sodium 10 % Ophthalmic Solution; Instill 2 Drops into both eyes in the morning and 2 Drops at noon and 2 Drops in the evening and 2 Drops before bedtime. Do all this for 7 days. In affected eye(s). Wrap-Up Time: I spent a total of 20-29 minutes (exact time 25 mins) on the date of service in preparation, delivery, and documentation of the care provided to Jennifer Hernández excluding any time spent in the performance of separately billed services. documented in this encounter Nursing Notes * Michelle Vieyra LPN - 05/18/2023 12:41 PM EST Patient presents today for possible pink eye that started Thursday and then her other eye started on Thursday. She said she has sinus congestion and her throat is scratchy as well. documented in this encounter Plan of Treatment Upcoming Encounters Date Type Department Care Team (Late st Contact Info) Description 06/01/2023 2:00 PM EST Office Visit Orthopaedics [facility] [address] [place] [address] Jamil Marcus MD [address] [place] [address] 07/15/2023 10:45 AM EST Imaging Radiology [facility] [facility] [address] [place] [address] Scheduled Procedures Name Priority Associated Diagnoses Date/Ti me COLONOSCOPY FLEXIBLE PROXIMAL DIAGNOSTIC Recall History of colon polyps Health Maintenance Due Date Last Done Comments DISCUSS TOBACCO CESSATION (REFER TO SMARTSET #1202) 1965 Hepatitis B (1 of 3 - [...] Additional history exists Lipid Panel 07/09/2023 07/09/2018, 05/06/2016, 11/23/2014, Additional history exists GFR 12/30/2023 12/29/2022, [...] as of this encounter Visit Diagnoses Diagnosis Acute maxillary sinusitis, recurrence not specified- Primary Acute bacterial conjunctivitis of both eyes Type 2 diabetes mellitus with hemoglobin A1c goal of less than 7.0% (HCC) documented in this encounter Care Teams Speed Operator Relationship Specialty Start Date End Date Robbin Nguyen III, MD [address] [place] [address] PCP - General 11/18/05 documented as of this encounter
--- OUTSIDE RECORDS SUMMARY | 2023-07-22 07:14 | External Medical Summary | Summary of Care ---
Author Name Unknown Organization [facility] Address [address] [facility] [place] [address] Phone [phone] Care Team Providers Care Courtroom Deputy Name Role Phone Wendy GONZALES MD, Robbin Hung Primary Care Provider [phone] Reason for Visit * Reason Onset Date Comments Immunizations 05/06/2023 Shingrix Encounter Details Date Type Department Care Team (Late st Contact Info) Description 05/06/2023 9:00 AM EST Nurse Only Ancillary [facility] [address] [place] [address] [place], Nurse Fam [facility] 200 [place] [address] Immunizations (Shingrix) Allergies No known active allergiesdocumented as of this encounter (statuses as of 05/06/2023) Medications Medication Sig Dispensed Refills Start Date [...] as of this encounter (statuses as of 05/06/2023) Active Problems Problem Noted Date Diagnosed Date [...] as of this encounter (statuses as of 05/06/2023) Resolved Problems Problem Noted Date Diagnosed Date [...] as of this encounter (statuses as of 05/06/2023) Immunizations Name Administration Dates Next Due COVID-19 mRNA, LNP-s, No Pre serve, 2-Dose Series (Moderna) 10/04/2020,09/06/2020 COVID-19, mRNA, LNP-s, PF, B ooster, 100mcg/0.5mg (Moderna) 06/03/2021 Pneumococcal Conjugate Vacci ne, 20-valent ([id number]) 02/02/2023 Pneumococcal Polysaccharide PPV23 (Pneumovax) 11/28/2010 SEASONAL [...] prescription/drug coverage. Patient has been informed that [email or web address] copays are close to $0. In most [...] Care Team (Late st Contact Info) Description 05/11/2023 7:20 AM EST Laboratory Laboratory [facility] [address] [place] [address] [place], [address] [place] [address] 06/01/2023 2:00 PM EST Office Visit Orthopaedics [facility] [address] [place] [address] Jamil Marcus MD [address] [place] [address] 07/15/2023 10:45 AM EST Imaging Radiology [address] [facility] [place] [address] Scheduled Procedures Name Priority Associated Diagnoses Date/Ti me COLONOSCOPY FLEXIBLE PROXIMAL DIAGNOSTIC Recall History of colon polyps Health Maintenance Due Date Last Done Comments DISCUSS TOBACCO CESSATION (REFER TO SMARTSET #5663) 1965 Hepatitis B (1 of 3 - [...] diseases documented in this encounter Care Teams Courtroom Deputy Relationship Specialty Start Date End Date Robbin Nguyen III, MD [address] [place] [address] PCP - General 11/18/05 documented as of this encounter
--- OUTSIDE RECORDS SUMMARY | 2023-07-22 07:14 | External Medical Summary | Summary of Care ---
Author Name Unknown Organization [facility] Address [address] [facility] [place] [address] Phone [phone] Care Team Providers Care Roll Grinder Name Role Phone Wendy GONZALES MD, Jenny Hung Primary Care Provider [phone] Reason for Visit * Reason Comments eRx-Medication Refill Encounter Details Date Type Department Care Team (Late st Contact Info) Description 02/11/2023 Refill Family Practice [facility] [place] 200 [facility] [place] [address] Jenny Sylvester III, MD 200 [place] [address] Encounter for long-term (current) use of medications* Allergies No known active allergiesdocumented as of this encounter (statuses as of 05/05/2023) Medications Medication Sig Dispensed Refills Start Date [...] Muscle spasms. 30 Tablet 0 01/20/2022 Active Atorvastatin Calcium 20 MG Oral Tablet (Lipitor) Take by mouth 1 Tablet in the morning. 30 Tablet 11 04/17/2022 Active Metoprolol Tartrate 50 MG Oral Tablet [...] 90 Tablet 3 04/11/2022 03/13/20 23 Discontinued metFORMIN HCl ER 500 MG Oral Tablet Extended Release 24 Hour (Glucophage XR) Take 2 Tablets by mouth daily with breakfast. 180 Tablet 0 11/11/2022 02/12/20 23 Discontinued Meloxicam 15 MG Oral Tablet TAKE ONE TABLET BY MOUTH EVERY MORNING FOR PAIN 90 Tablet 0 12/15/2022 03/11/20 23 Discontinued documented as of this encounter (statuses as of 05/05/2023) Active Problems Problem Noted Date Diagnosed Date [...] 01/27/2022 DDD (degenerative disc disease), lumbar 05/18/20 Acute right-sided low back pain with right-sided [...] as of this encounter (statuses as of 05/05/2023) Resolved Problems Problem Noted Date Diagnosed Date [...] as of this encounter (statuses as of 05/05/2023) Immunizations Name Administration Dates Next Due COVID-19 mRNA, LNP-s, No Pre serve, 2-Dose Series (Moderna) 10/04/2020,09/06/2020 COVID-19, mRNA, LNP-s, PF, B ooster, 100mcg/0.5mg (Moderna) 06/03/2021 Pneumococcal Conjugate Vacci ne, 20-valent ([id number]) 02/02/2023 Pneumococcal Polysaccharide PPV23 (Pneumovax) 11/28/2010 SEASONAL [...] encounter Miscellaneous Notes * Telephone Encounter - Savanah Rios [facility] - 05/05/2023 6:58 AM EST Patient will be contacted in future encounter Thank You, Savanah Rios [facility] Clinical Pharmacist [facility] ([facility]) (formerly Telepharmacy) [phone] 05/05/2023, 6:58 AM * Telephone Encounter - Jennifer Roberts RPh - 02/11/2023 2:32 PM EDTSigned Prescriptions: Disp Refills metFORMIN HCl ER 500 MG Oral Tablet Extend*180 Ta*0 Sig: TAKE TWO TABLETS BY MOUTH WITH BREAKFAST Authorizing Provider: JENNY SYLVESTER III Ordering User: JENNIFER ROBERTS * Telephone Encounter - Jennifer Roberts RPh - 02/11/2023 2:29 PM EDT Provided 90 [...] Pharmacist [facility] ([facility]) (formerly Telepharmacy). [phone] 02/11/2023, 2:31 PM documented in this encounter Plan of Treatment Upcoming Encounters Date Type Department Care Team (Late st Contact Info) Description 05/06/2023 9:00 AM EST Nurse Only [facility] [address] [place] [address] Nurse Katie Fam Prac [facility] [address] [place] [address] 06/01/2023 2:00 PM EST Office Visit Orthopaedics [facility] [address] [place] [address] Jamil Marcus MD [address] [place] [address] 07/15/2023 10:45 AM EST Imaging Radiology [facility] [address] [place] [address] Scheduled Orders Name Type Priority Associated Diagnoses [...] Comments DISCUSS TOBACCO CESSATION (REFER TO SMARTSET #3298) 1965 Hepatitis B (1 of 3 - [...] 2023 04/05/2020, 04/05/2020, 04/04/2019, Additional history exists Zoster Vaccines (2 of 2) 03/30/2023 02/02/2023 HbA1c 07/01/2023 12/29/2022, 08/21, 06/28/2020, Additional history exists Lipid Panel 07/09/2023 07/09/2018, /06/2016, 11/23/2014, Additional history exists GFR 12/30/2023 12/29/2022, 05/23, 06/28/2020, Additional history exists Depression Screening 02/03/2024 02/02/2023, 06/11/2015 (Discussed) Diabetic Foot Exam 02/03/2024 02/02/2023 DTaP,Tdap,and Td Vaccines (4 - Td or Tdap) 07/09/2028 07/09/2018, 07/09/2018, 11/20/2007 Pneumococcal Vaccine: Pediatrics (0 to 5 Years) and At-Risk Patients (6 to 64 Years) Completed 02/02/2023, 11/28/2010 GARDASIL-HPV IMMUNIZATION SERIES Aged Out No longer [...] medications documented in this encounter Care Teams Roll Grinder Relationship Specialty Start Date End Date Jenny Sylvester III, MD [address] [place] [address] PCP - General 11/18/05 documented as of this encounter
--- OUTSIDE RECORDS SUMMARY | 2023-07-22 07:14 | External Medical Summary | Summary of Care ---
Author Name Unknown Organization [facility] Address [address] [facility] [place] [address] Phone [phone] Care Team Providers Care Patient Safety Tech Name Role Phone Wendy GONZALES MD, Jenny Hung Primary Care Provider [phone] Reason for Visit * Reason Comments eRx-Medication Refill Encounter Details Date Type Department Care Team (Late st Contact Info) Description 05/04/2023 Refill Family Practice [facility] [place] 200 [facility] [place] [address] Jenny Sylvester III, MD 200 [place] [address] Allergies No known active allergiesdocumented as of [...] EVERY MORNING 30 Tablet 0 05/05/2023 Active Atorvastatin Calcium 20 MG Oral Tablet (Lipitor) Take by mouth 1 Tablet in the morning. 30 Tablet 11 04/17/2022 05/05/20 23 Discontinued documented as of this encounter [...] (Moderna) 06/03/2021 Pneumococcal Conjugate Vacci ne, 20-valent ([id number]) 02/02/2023 Pneumococcal Polysaccharide PPV23 (Pneumovax) 11/28/2010 SEASONAL [...] Encounter - Jenny Sylvester III, MD - 05/05/2023 1:47 PM ESTSigned Prescriptions: Disp Refills Atorvastatin Calcium 20 MG Oral Tablet (Li*30 Tab*0 Sig: TAKE ONE TABLET BY MOUTH EVERY MORNINGAuthorizing Provider: JENNY SYLVETSER III * Telephone Encounter - Fany Campbell CPhT - 05/05/2023 1:05 PM ESTPending Prescriptions: Disp Refills Atorvastatin Calcium 20 MG Oral Tablet (Li*30 Tab*0 Sig: TAKE ONE TABLET BY MOUTH EVERY MORNING * Telephone Encounter - Fany Campbell CPhT - 05/05/2023 1:05 PM EST Received message from [facility] regarding patient needing labs. Placed call to patient to advise. Pt was agreeable to set up lab appointment. Patient scheduled for 05/11/23. Thank you, Fany Campbell CPhT [employer] [facility] Clinical Pharmacy Services ( Formerly Telepharmacy) 05/05/2023,1:05 PM * Telephone Encounter - Savanah Rios [facility] - 05/05/2023 6:59 AM ESTPending Prescriptions: Disp Refills Atorvastatin Calcium 20 MG Oral Tablet (Li*30 Tab*0 Sig: TAKE ONE TABLET BY MOUTH EVERY MORNING * Telephone Encounter - Savanah Rios [facility] - 05/05/2023 6:57 AM EST Unable to authorize medication refills for pended medication(s) at this time. Per refill protocol patient should have Lipid panel on file within past year. Reviewed [...] forward request to Jenny Sylvester III, MD. Thank You, Savanah Rios [facility] Clinical Pharmacist Centralized Clinical Pharmacy Services ([facility]) (formerly Telepharmacy) [phone] 05/05/2023, 6:58 AM documented in this encounter Plan of Treatment Upcoming Encounters Date Type Department Care Team (Late st Contact Info) Description 05/06/2023 9:00 AM EST Nurse Only Ancillary [facility] [address] [place] [address] [place], Nurse Fam [facility] [place] [address] [place] [address] 05/11/2023 7:20 AM EST Laboratory Laboratory [facility] [place] [address] [place] [id number] Katie Lab [facility] [place] [address] [place] [address] 06/01/2023 2:00 PM EST Office Visit Orthopaedics [facility] 132 [facility] [place] [address] Jamil Marcus MD [address] [place] [address] 07/15/2023 10:45 AM EST Imaging Radiology [address] [facility] [place] [address] Scheduled Procedures Name Priority Associated Diagnoses Date/Ti me COLONOSCOPY FLEXIBLE PROXIMAL DIAGNOSTIC Recall History of colon polyps Health Maintenance Due Date Last Done Comments DISCUSS TOBACCO CESSATION (REFER TO SMARTSET #9064) 1965 Hepatitis B (1 of 3 - [...] filedocumented as of this encounter Care Teams Patient Safety Tech Relationship Specialty Start Date End Date Jenny Sylvester III, MD 200 [place] [address] PCP - General 11/18/05 documented as of this encounter
--- OUTSIDE RECORDS SUMMARY | 2023-07-22 07:14 | External Medical Summary | Summary of Care ---
Author Name Unknown Organization [facility] Address [address] [facility] [place] [address] Phone [phone] Care Team Providers Care Pulmonary Physical Therapist Name Role Phone Wendy GONZALES MD, Robbin Hung Primary Care Provider [phone] Encounter Details Date Type Department Care Team (Late st Contact Info) Description 04/21/2023 Patient Reported Data Patient Survey Ortho [facility] Allergies No known active allergiesdocumented as of this encounter (statuses as of 04/21/2023) Medications Medication Sig Dispensed Refills Start Date [...] EVERY MORNING 90 Tablet 3 03/13/2023 Active documented as of this encounter (statuses as of 04/21/2023) Active Problems Problem Noted Date Diagnosed Date [...] as of this encounter (statuses as of 04/21/2023) Resolved Problems Problem Noted Date Diagnosed Date [...] as of this encounter (statuses as of 04/21/2023) Immunizations Name Administration Dates Next Due COVID-19 mRNA, LNP-s, No Pre serve, 2-Dose Series (Moderna) 10/04/2020,09/06/2020 COVID-19, mRNA, LNP-s, PF, B ooster, 100mcg/0.5mg (Moderna) 06/03/2021 Pneumococcal Conjugate Vacci ne, 20-valent ([id number]) 02/02/2023 Pneumococcal Polysaccharide PPV23 (Pneumovax) 11/28/2010 SEASONAL [...] on file documented as of this encounter Plan of Treatment Upcoming Encounters Date Type Department Care Team (Late st Contact Info) Description 05/06/2023 9:00 AM EST Nurse Only Ancillary [facility] [address] [place] [address] Katie Nurse Fam Prac [facility] 200 [facility] [place] [address] 06/01/2023 2:00 PM EST Office Visit Orthopaedics [facility] [address] [place] [address] Jamil Marcus MD [address] [place] [address] 07/15/2023 10:45 AM EST Imaging Radiology [address] [place] [address] Scheduled Procedures Name Priority Associated Diagnoses Date/Ti me COLONOSCOPY FLEXIBLE PROXIMAL DIAGNOSTIC Recall History of colon polyps Health Maintenance Due Date Last Done Comments DISCUSS TOBACCO CESSATION (REFER TO SMARTSET #2424) 1965 Hepatitis B (1 of 3 - 3-dose series) 1965 Albumin/Creatinine Ratio 1984 Diabetic Eye Exam 1984 Hepatitis C Screening 1984 HPV/Co-Test 1996 COLONOSCOPY-ANNUAL AGES 18-100 07/31/2021 07/31/2020, 07/31/2020, 12/03/2016 Cervical Cancer Screening 04/21/2022 Pap Smear 04/21/2022 04/21/2019, 05/23, 06/11/2015, Additional history exists Mammogram 11/25/2022 11/25/2021, 07/2020, 06/01/2019, Additional history exists COVID-19 Vaccine ( - 2022- season) 2023 06/03/2021, 10/04/2020, 09/06/2020 Influenza Vaccine [...] filedocumented as of this encounter Care Teams Pulmonary Physical Therapist Relationship Specialty Start Date End Date Robbin Nguyen III, MD [address] [place] [address] PCP - General 11/18/05 documented as of this encounter
--- OUTSIDE RECORDS SUMMARY | 2023-07-22 07:14 | External Medical Summary | Summary of Care ---
Author Name Unknown Organization [facility] Address [address] [facility] [place] [address] Phone [phone] Care Team Providers Care Lumber Straightened Name Role Phone Wendy GONZALES MD, Jenny Hung Primary Care Provider [phone] Reason for Visit * Reason Comments eRx-Medication Refill Encounter Details Date Type Department Care Team (Late st Contact Info) Description 09/11/2022 Refill Family Practice [facility] [place] [address] [facility] [place] [address] Jenny Sylvester III, MD [address] [facility] [address] Encounter for long-term (current) use of medications* Allergies No known active allergiesdocumented as of this encounter (statuses as of 04/18/2023) Medications Medication Sig Dispensed Refills Start Date End Date Status PRILOSEC CPDR 20 MG ORIndications:Es ophageal reflux one tab by mouth daily at bedtime 34 5 1 Active Additional Information Patient taking differently: Indications: as needed, Reported on 07/24/2020 Acetaminophen ER (TYLENOL ARTHRITIS PAIN) 650 MG TBCR Take 2 Tabs by mouth 2 times a day. 0 7 Active aspirin enteric coated 81 MG TBEC Take 1 Tab by mouth daily. 0 9 Active Vitamin D (Cholecalciferol ) 50 MCG (2000 UT) Oral Capsule Take by mouth . 0 Act rigo Vitamin B-12 100 MCG Oral Tablet (vitamin B-12) Take by mouth 100 mcg in the morning. 0 Active Cyclobenzaprine HCl 5 MG Oral Tablet (Flexeril)Indica tions:Lumbar degenerative disc disease,Spasm of muscle,Acute right-sided low back pain without sciatica Take by mouth 1 Tablet 2 times a day as needed for Muscle spasms. 30 Tablet 0 2 Active Atorvastatin Calcium 20 MG Oral Tablet (Lipitor) Take by mouth 1 Tablet in the morning. 30 Tablet 11 2 Active Metoprolol Tartrate 50 MG Oral Tablet (Lopressor) TAKE ONE TABLET BY MOUTH EVERY MORNING AND 1 TABLET BEFORE BEDTIME 180 Tablet 3 3 Active LORazepam 0.5 MG Oral Tablet (Ativan)Indicati ons:Anxiety Take 1 Tablet by mouth 3 times a day as needed for Anxiety. 30 Tablet 0 3 Active metFORMIN HCl ER 500 MG Oral Tablet Extended Release 24 Hour (Glucophage XR) Take by mouth 1 Tablet in the morning. With breakfast for 2 Weeks then 2 with breakfast. 180 Tablet 3 2 11/12/19 23 Discontinued amLODIPine Besylate 5 MG Oral Tablet (Norvasc)Indicat ions:HTN, goal below 140/90 Take by mouth 1 Tablet in the morning. 90 Tablet 3 2 12/17/19 23 Discontinued(Ref ill) traMADol HCl 50 MG Oral Tablet (Ultram)Indicati ons:Lumbar degenerative disc disease,Acute right-sided low back pain without sciatica Take by mouth 1 Tablet every 8 hours as needed for Pain, Moderate. 21 Tablet 0 2 12/30/19 23 Discontinued(Med ication List Clean Up) Trulicity 0.75 MG/0.5ML Subcutaneous Solution Pen-injector (Dulaglutide) Inject under the skin 0.75 mg once a week . 2 mL 0 2 12/30/19 23 Discontinued(Pat ient preference/disco ntinuation) Meloxicam 15 MG Oral Tablet Take by mouth 1 Tablet in the morning. for pain.. 30 Tablet 5 2 09/13/19 23 Discontinued Lisinopril 20 MG Oral Tablet (Prinivil) Take by mouth 1 Tablet in the morning. 90 Tablet 3 2 03/13/20 23 Discontinued Meloxicam 15 MG Oral Tablet TAKE ONE TABLET BY MOUTH EVERY MORNING FOR PAIN 90 Tablet 0 3 12/16/19 23 Discontinued documented as of this encounter (statuses as of 04/18/2023) Active Problems Problem Noted Date Diagnosed Date [...] as of this encounter (statuses as of 04/18/2023) Resolved Problems Problem Noted Date Diagnosed Date [...] as of this encounter (statuses as of 04/18/2023) Immunizations Name Administration Dates Next Due COVID-19 mRNA, LNP-s, No Pre serve, 2-Dose Series (Moderna) 10/04/2020,09/06/2020 COVID-19, mRNA, LNP-s, PF, B ooster, 100mcg/0.5mg (Moderna) 06/03/2021 Pneumococcal Conjugate Vacci ne, 20-valent ([id number]) 02/02/2023 Pneumococcal Polysaccharide PPV23 (Pneumovax) 11/28/2010 SEASONAL [...] encounter Miscellaneous Notes * Telephone Encounter - Jesenia Mancuso PHARM Tech - 04/18/2023 8:07 PM EDT Labs and OV completed Thank you, Jesenia Mancuso Adjunct Professor Of Voice [employer] ([employer]) (formerly [employer]) [phone] 04/18/2023,8:07 PM * Telephone Encounter - Emmanuel Deras [facility] - 09/12/2022 8:33 AM EDTSigned Prescriptions: Disp Refills Meloxicam 15 MG Oral Tablet 90 Tab*0 Sig: TAKE ONE TABLET BY MOUTH EVERY MORNING FOR PAINAuthorizing Provider: JENNY SYLVESTER III User: EMMANUEL GONZALEZ----- * Telephone Encounter - Emmanuel Deras [facility] - 09/12/2022 8:31 AM EDT Provided 90 days supply with 0 refill. Per refill protocol patient should have CBC and CMP on file within past year. Reviewed AMP report, Care Gaps/Health Maintenance, medications list, and for any routine labs typically ordered for this patient. Lab orders placed. Please contact patient to schedule office visit with her PRIMARY CARE and advise of labs ordered for blood draw.. Fasting is not required. Advise to obtain labs before requesting the next refill. Last Visit: 09/16/2021 (in office), Visit date not found (telemedicine) Next Visit: Visit date not found Thank You, Emmanuel Gonzalez [facility] Staff Pharmacist Pharmacy Refill Call Center 09/12/2022, 8:31 AM * Telephone Encounter - Emmanuel Deras [facility] - 09/12/2022 8:30 AM EDT Pending Prescriptions: Disp Refills Meloxicam 15 MG Oral Tablet [Pharmacy Med*30 Tab*5 Sig: TAKE ONE TABLET BY MOUTH EVERY MORNING FOR PAIN Last Visit: 09/16/2021 (in office), Visit date not found (telemedicine) Next Visit: Visit date not found If no future appointments scheduled, and last appointment is greater than a year ago, please schedule patient for a follow-up appointment Last date the medication was ordered: 03/20/22 Pharmacy: [facility] [address] Is this request for a controlled substance? No Urine Drug Screen:No results found for this or any previous visit. Patient Phone Numbers Labs: Lab Results Component Value Date/Time CREAT 0.75 06/15/2021 12:00 AM CREAT 0.8 06/28/2020 12:33 PM POTASSIUM 4.3 06/15/2021 12:00 AM POTASSIUM 4.3 06/28/2020 12:33 PM TSH 3.28 09/16/2021 08:43 AM TSH 3.21 07/09/2018 02:05 PM LDLCALC UNINTERPRETABLE RESULT 07/09/2018 02:05 PM LDLDIRECT 159 (H) 07/09/2018 02:05 PM LDLDIRECT 156 (H) 09/07/2009 02:21 PM ALT 34 06/28/2020 12:33 PM HGBA1C 7.1 (H) 09/16/2021 08:43 AM HGBA1C 6.3 (H) 06/28/2020 12:33 PM documented in this encounter Plan of Treatment Upcoming Encounters Date Type Department Care Team (Late st Contact Info) Description 05/06/2023 9:00 AM EST Nurse Only Ancillary [facility] [address] [place] [address] [place], Nurse Fam Prac [address] [place] [address] 06/01/2023 2:00 PM EST Office Visit Orthopaedics [facility] [address] [place] [address] Jamil Marcus MD [address] [place] [address] 07/15/2023 10:45 AM EST Imaging Radiology [address] [place] [address] Scheduled Procedures Name Priority Associated Diagnoses Date/Ti me COLONOSCOPY FLEXIBLE PROXIMAL DIAGNOSTIC Recall History of colon polyps Health Maintenance Due Date Last Done Comments DISCUSS TOBACCO CESSATION (REFER TO SMARTSET #3048) 1965 Hepatitis B (1 of 3 - 3-dose series) 1966 Albumin/Creatinine Ratio 1984 DIABETES-EYE EXAM 1984 Hepatitis C Screening 1984 HPV/Co-Test 1996 [...] Not on filedocumented as of this encounter Results * COMPREHENSIVE METABOLIC PANEL (12/29/2022 1:52 PM EDT) BUN 13 6 - 20 mg/dL 12/29/2022 2:54 PM EDT [facility]02 Creatinine 0.8 0.5 - 1.0 mg/dL 12/29/2022 2:54 PM EDT [facility]02 Estimated Glomerular Filtration Rate 90 >=60 mL/min 12/29/2022 2:54 PM EDT [facility] 56-02 Comment:eGFR is calculated b ased on the CKD-EPI 2020 equation Sodium 142 135 - 146 mmol/L 12/29/2022 2:54 PM EDT [facility]02 Potassium 4.5 3.5 - 5.1 mmol/L 12/29/2022 2:54 PM EDT [facility]02 Chloride 103 98 - 107 mmol/L 12/29/2022 2:54 PM EDT [facility] 56- CO2 29 22 - 32 mmol/L 12/29/2022 2:54 PM EDT [facility] 56- Anion Gap 10 7 - 15 mmol/L 12/29/2022 2:54 PM EDT [facility] 56- Glucose 92 70 - 120 mg/dL 12/29/2022 2:54 PM EDT [facility] 56- Albumin 4.4 3.8 - 5.0 g/dL 12/29/2022 2:54 PM EDT [facility] 56- AST 16 10 - 35 U/L 12/29/2022 2:54 PM EDT [facility] 56- Alkaline Phosphatase 116 35 - 130 U/L 12/29/2022 2:54 PM EDT [facility] 56- Bilirubin, Total 0.6 <=1.2 mg/dL 12/29/2022 2:54 PM EDT [facility] 56- Calcium 10.0 8.4 - 10.2 mg/dL 12/29/2022 2:54 PM EDT [facility] 56- Protein 6.5 6.0 - 8.3 g/dL 12/29/2022 2:54 PM EDT [facility] 56- ALT 27 10 - 35 U/L 12/29/2022 2:54 PM EDT [facility] 56- Blood Venous blood specimen / Unknown Venipuncture / Unknown 12/29/2022 1:52 PM EDT 12/29/2022 1:52 PM EDT Emmanuel Deras [facility] LAB BLOOD ORDERABLES [facility] [address] [facility] [address] documented in this encounter Visit Diagnoses Diagnosis Encounter for long-term (current) use of medications- Primary Encounter for long-term (current) use of other medications documented in this encounter Care Teams Lumber Straightened Relationship Specialty Start Date End Date Jenny Sylvester III, MD [address] [facility] [address] PCP - General 11/18/05 documented as of this encounter
--- OUTSIDE RECORDS SUMMARY | 2023-07-22 07:15 | External Medical Summary | Summary of Care ---
Author Name Unknown Organization [facility] Address [address] [facility] [address] Phone [phone] Care Team Providers Care Opal Miner Name Role Phone Wendy GONZALES MD, Robbin Hung Primary Care Provider [phone] Reason for Visit * Reason Comments NEW PATIENT L knee pain x couple weeks Encounter Details Date Type Department Care Team Description 04/07/2023 Office Visit Orthopaedics [facility] [address] [place] [address] SharerAntoinette PA-C [address] [place] [address] Primary osteoarthritis of left knee*; Chronic pain of left knee Allergies No known active allergiesdocumented as of this encounter (statuses as of 04/07/2023) Medications Medication Sig Dispensed Refills Start Date [...] 06/20/2019 Active Vitamin D (Cholecalciferol) 50 MCG (1999) Oral Capsule Take by mouth . 0 [...] as of this encounter (statuses as of 04/07/2023) Active Problems Problem Noted Date Body mass index (BMI) of 45.0 to 49.9 in adult 03/02/2023 Overview: Per Obesity protocol - Per Obesity protocol - Per Obesity protocol - Per Obesity protocol Type 2 diabetes mellitus with diabetic n europathy 12/29/2022 Type 2 diabetes mellitus with hemoglobin A1c goal of less than 7.0% 01/27/2022 DDD (degenerative disc disease), lumbar 05/18/2021 Acute right-sided low back pain with rig ht-sided sciatica 05/18/2021 Prediabetes 07/13/2017 Morbid obesity due to excess calories Hypercholesteremia 12/04/2014 Toxic diffuse goiter 11/10/2010 BMI 35-39 ISOLATED (SEE ACTUAL BMI) 11/20 Overview: Per Obesity Protocol, #19 Family history of ischemic heart disease 02/22/2009 ADVANCE DIRECTIVE INFORMATION 11/18/2005 Overview: No, Advance Directive brochure offered , patient declined. Reflux esophagitis 09/17/2000 CARPAL TUNNEL SYNDROME, right 09/17/2000 documented as of this encounter (statuses as of 04/07/2023) Resolved Problems Problem Noted Date Resolved Date Body mass index (BMI) of 40.0 to 44.9 in adult 0 01/27/2022 03/05/2023 Overview: Per Obesity protocol - Per Obesity protocol - Per Obesity protocol Body mass index (BMI) of 45.0 to 49.9 in adult 0 12/04/2020 01/30/2022 Overview: Per Obesity protocol - Per Obesity protocol Body mass index (BMI) of 40.0 to 44.9 in adult 0 10/30/2020 12/06/2020 Overview: Per Obesity protocol documented as of this encounter (statuses as of 04/07/2023) Immunizations Name Administration Dates Next Due COVID-19 mRNA, LNP-s, No Pre serve, 2-Dose Series (Moderna) 10/04/2020,09/06/2020 COVID-19, mRNA, LNP-s, PF, B ooster, 100mcg/0.5mg (Moderna) 06/03/2021 Pneumococcal Conjugate Vacci ne, 20-valent ([id number]) 02/02/2023 Pneumococcal Polysaccharide PPV23 (Pneumovax) 11/28/2010 SEASONAL [...] e alcohol) Social use once a week Alcohol Habits Answer Date Recorded How often do you have a drink containing alcohol ? 2-4 times a month 04/21/2019 How many drinks containing a lcohol do you have on a typical day when you are drinking? Not asked How often do you have six or more drinks on one occasion? Not asked Food Insecurity Answer Date Recorded Within the past 12 months, y ou worried that your food would run out before you got money to buy more. Never true 12/29/2022 Within the past 12 months, t he food you bought just didn't last and you didn't have money to get more. Never true 12/29/2022 Sex Assigned at Date Recorded Female 01/15/2022 6:57 AM E DT Job Start Date Occupation Industry Not on file Not on file Not on file documented as of this encounter Progress Notes * Antoinette Kline PA-C - 04/07/2023 12:02 PM EDT Jennifer Hernández is a 57 year old female who presents for consultation to [facility] for left knee injury/pain. Consult requested by Self. Jennifer Hernández is here unaccompanied History: Jennifer Hernández reports that left knee pain flared a few weeks ago. Patient denies any injury. States symptoms flared after a period of increased activity while traveling. Notes stiffness and swelling. Reports pain worsens with start up and pivoting. She denies locking or instability. She reportshistory of OA. She is taking Meloxicam with some relief. She has been treated with a medial off washing machine loader and puller brace as well as HEP. States she has tried cortisone injections in the past with no relief. Reports no relief with off washing machine loader and puller brace but does note improvement with OTC brace. However, recently she was not able to tolerate due to increased pressure on posterior knee. Review of systems: All others negative except those noted above in HPI. Review of patient's allergies indicates: No Known Allergies Current Outpatient Medications Medication Sig Dispense Refill PRILOSEC CPDR 20 MG OR one tab by mouth daily at bedtime (Patient taking differently: Indications: as needed) 34 5 Acetaminophen ER (TYLENOL ARTHRITIS PAIN) 650 MG TBCR Take 2 Tabs by mouth 2 times a day. aspirin enteric coated 81 MG TBEC Take 1 Tab by mouth daily. Vitamin D (Cholecalciferol) 50 MCG (2000 UT) Oral Capsule Take by mouth . Vitamin B-12 100 MCG Oral Tablet (vitamin B-12) Take by mouth 100 mcg in the morning. Cyclobenzaprine HCl 5 MG Oral Tablet (Flexeril) Take by mouth 1 Tablet 2 times a day as needed for Muscle spasms. 30 Tablet 0 Atorvastatin Calcium 20 MG Oral Tablet (Lipitor) Take by mouth 1 Tablet in the morning. 30 Tablet 11 Metoprolol Tartrate 50 MG Oral Tablet (Lopressor) TAKE ONE TABLET BY MOUTH EVERY MORNING AND 1 TABLET BEFORE BEDTIME 180 Tablet 3 LORazepam 0.5 MG Oral Tablet (Ativan) Take 1 Tablet by mouth 3 times a day as needed for Anxiety. 30 Tablet 0 amLODIPine Besylate 5 MG Oral Tablet (Norvasc) TAKE ONE TABLET BY MOUTH EVERY MORNING 90 Tablet 3 metFORMIN HCl ER 500 MG Oral Tablet Extended Release 24 Hour (Glucophage XR) TAKE TWO TABLETS BY MOUTH WITH BREAKFAST 180 Tablet 0 Meloxicam 15 MG Oral Tablet LEWIS E ONE TABLET BY MOUTH EVERY MORNING FOR PAIN 90 Tablet 1 Lisinopril 20 MG Oral Tablet (Prinivil) TAKE ONE TABLET BY MOUTH EVERY MORNING 90 Tablet 3 No current facility-administered medications for this visit. Past Medical History: Diagnosis Date Dyslipidemia, goal to be determined GERD (gastroesophageal reflux disease) HTN, goal below 140/90 Human papilloma virus 1995 Cervical - WILLIAM I Hyperthyroidism Grave's Disease (elevated TSI, biopsy consistent with that dx) Patient Active Problem List Diagnosis Code Reflux esophagitis K21.00 CARPAL TUNNEL SYNDROME, right G56.00 ADVANCE DIRECTIVE INFORMATION Family history of ischemic heart disease Z82.49 BMI 35-39 ISOLATED (SEE ACTUAL BMI) E66.9 Toxic diffuse goiter E05.00 Hypercholesteremia E78.00 Morbid obesity due to excess calories ([facility]) E66.01 Prediabetes R73.03 DDD (degenerative disc disease), lumbar M51.36 Acute right-sided low back pain with right-sided sciatica M54.41 Type 2 diabetes mellitus with hemoglobin A1c goal of less than 7.0% ([facility]) E11.9 Type 2 diabetes mellitus with diabetic neuropathy ([facility]) E11.40 Body mass index (BMI) of 45.0 to 49.9 in adult ([facility]) Z68.42 Past Surgical History: Procedure Laterality Date COLONOSCOPY, DIAGNOSTIC (RECTUM) 12/03/2016 hyperplastic polyp, Granular Cell Tumor, repeat 1 yr/[facility] COLONOSCOPY, DIAGNOSTIC (RECTUM) 07/31/2020 inflammation on bx, diverticulosis, repeat 5 yrs / COLONOSCOPY FLEXIBLE PROXIMAL DIAGNOSTIC performed by Terry Platt DO at ENDOSCOPY [facility] LIGATE/CUT OVIDUCT(S) 01/31/2010 Dr. 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 Employer: [employer] Comment: [employer] Tobacco Use Smoking status: Every Day Packs/day: 0.50 Years: 20.00 Pack years: 10.00 Types: Cigarettes Smokeless tobacco: Never Vaping Use Vaping Use: Never used Substance and Sexual Activity Alcohol use: Yes Comment: Social use once a week Drug use: No Sexual activity: Yes Partners: Male control/protection: Surgical Comment: BTL Other Topics Concern Service No Blood Transfusions No Caffeine Concern No Occupational Exposure No Hobby Hazards No Sleep Concern No Stress Concern No Weight Concern No Special Diet No Back Care Not Asked Exercise No Bike Helmet Not Asked Seat Belt Not Asked Self-Exams Yes Comment: breast Social History Narrative Not on file Social Determinants of Health Financial Resource Strain: Not on file Food Insecurity: No Food Insecurity Worried About Running Out of Food in the Last Year: Never true Ran Out of Food in the Last Year: Never true Transportation Needs: Not on file Physical Activity: Not on file Stress: Not on file Social Connections: Not on file Intimate Partner Violence: Not on file Housing Stability: Not on file Family History Problem Relation Age of Onset Breast Cancer Grandmother (Paternal) Brain cancer Grandmother (Paternal) Bone cancer Grandmother (Paternal) Lung cancer Grandmother (Maternal) Lung cancer Mother COPD Mother Heart Disorder Sister cad stents Diabetes Sister Diabetes Aunt (Paternal) Colon cancer No significant family history Ovarian cancer No significant family history Family History; none relevant to today's HPI Objective: Physical Exam There were no vitals filed for this visit. Estimated body mass index is 45.73 kg/m as calculated from the following: Height as of 02/02/23: 1.575 m (5' 2"). Weight as of 02/02/23: 113.4 kg (250 lb 0.6 oz). General: generally well-nourished and in no acute distress HEENT: normocephalic, atraumatic, sclera anicteric. Psych: mood and affect normalnormal , cooperative Card: Peripheral pulses: in affected extremity (s) Resp: equal chest rise, non-tachypneic, non-labored breathing Skin: no rash, normal Neuro: Sensation: normal on affected extremity (s) MSK: Gait/station/stance: normal reciprocal gait, antalgic without an assistive device on smooth flat indoor surface. Knee Exam, Bilateral Inspection: +effusion on the left. No obvious deformity, no redness, warmth, bruising, abrasion. Alignment Moderate valgus Bilateral Palpation: tenderness to palpation at lateral joint line on the left ROM: Flexion/Neutral/Extension: L - 120/0/0, R - 120/0/0 Popliteal Angle (Hamstring Flexibility): 30 Bilateral Strength: R- Strength: Extension - 5/5 Flexion - 5/5 L - Strength: Extension - 5/5 Flexion - 5/5 Special Tests: ACL: Cindy - negative Ant Drawer - negative PCL: Sag - negative Post Drawer - negative MCL: Medial Opening @ 30: negative LCL: Lateral Opening @ 30: negative Patellar tests: Orestes's and Grind - positive on the left Crepitus - positive on the left Radiology (I have personally reviewed the following films):X-ray of the left knee was reviewed withpatient. Those x-rays reveal joint spaces narrowing and marginal osteophytes most notable in the medial and patella femoral compartments. Today's x-ray shows progression of degenerative changes compared to x-ray obtained in 2019 Assessment and Plan: Primary osteoarthritis of left knee (Primary) - ORTHOTIC SERVICES Left knee pain - XR KNEE 4 OR MORE VIEWS - ORTHOTIC SERVICES Discussed benefits of PT, regular low impact exercise, and weight loss. May try hinged knee brace for comfort and stability. Encouraged ice. Continue Meloxicam and tylenol. Recommend follow up with Sports Medicine Physician for steroid,or CHOW injections. Will start insurance authorization for CHOW injections. Follow Up: Return for OA knee -- first available with Dr Marcus. Antoinette Kline PA-C [facility] [address] [place] [address] documented in this encounter Nursing Notes * TIARRA Jorge - 04/07/2023 11:24 AM EDT Pt presents today for L knee pain x couple of weeks Denies injury, but did do a lot of walking in [place] a couple weeks ago TIARRA Jorge documented in this encounter Plan of Treatment Upcoming Encounters Date Type Specialty Care Team Description 05/06/2023 Nurse Only Ancillary Katie, Nurse [facility] [address] [place] [address] Pending Results Name Type Priority Associated Diagnoses Date /Time XR KNEE 4 OR MORE VIEWS Medical Imaging Routine Chronic pain of left knee 04/07/2023 11:34 AM EDT Scheduled Procedures Name Priority Associated Diagnoses Date/Ti me COLONOSCOPY FLEXIBLE PROXIMAL DIAGNOSTIC Recall History of colon polyps Health Maintenance Due Date Last Done Comments DISCUSS TOBACCO CESSATION (REFER TO SMARTSET #3290) 1965 Hepatitis B (1 of 3 - [...] knee- Primary Primary localized osteoarthrosis, lower leg Chronic pain of left knee Pain in joint, lower leg documented in this encounter Care Teams Opal Miner Relationship Specialty Start Date End Date Robbin Nguyen III, MD [address] [place] [id number] PCP - General 11/18/05 documented as of this encounter
--- OUTSIDE RECORDS SUMMARY | 2023-07-22 07:15 | External Medical Summary | Summary of Care ---
Author Name Unknown Organization [facility] Address [address] [facility] [address] Phone [phone] Care Team Providers Care Refinery Process Engineer Name Role Phone Wendy GONZALES MD, Robbin Hung Primary Care Provider [phone] Reason for Visit * Reason Onset Date Comments Referral Requested by Specialist 04/10/2023 Encounter Details Date Type Department Care Team Description 04/10/2023 Telephone Family Practice [facility] [place] 200 [facility] [place] [address] Robbin Nguyen III, MD [address] [facility] [address] Referral Requested by Specialist Allergies No known active allergiesdocumented as of this encounter (statuses as of 04/10/2023) Medications Medication Sig Dispensed Refills Start Date [...] as of this encounter (statuses as of 04/10/2023) Active Problems Problem Noted Date Body mass [...] as of this encounter (statuses as of 04/10/2023) Resolved Problems Problem Noted Date Resolved Date [...] as of this encounter (statuses as of 04/10/2023) Immunizations Name Administration Dates Next Due COVID-19 mRNA, LNP-s, No Pre serve, 2-Dose Series (Moderna) 10/04/2020,09/06/2020 COVID-19, mRNA, LNP-s, PF, B ooster, 100mcg/0.5mg (Moderna) 06/03/2021 Pneumococcal Conjugate Vacci ne, 20-valent ([id number]) 02/02/2023 Pneumococcal Polysaccharide PPV23 (Pneumovax) 11/28/2010 SEASONAL [...] encounter Miscellaneous Notes * Telephone Encounter - Deb Carter - 04/10/2023 9:43 AM EDT Patient was seen in the ortho [facility] on 03/22 for a LFT knee injury. Please place a referral for this visit. Thanks documented in this encounter Plan of Treatment Upcoming Encounters Date Type Specialty Care Team Description 04/17/2023 Office Visit Orthopedics Jamil Marcus MD 132 [facility] [place] [address] 05/06/2023 Nurse Only Ancillary Nurse [facility] [address] [place] [address] 07/15/2023 Imaging Radiology Scheduled Procedures Name Priority Associated Diagnoses Date/Ti me COLONOSCOPY FLEXIBLE PROXIMAL DIAGNOSTIC Recall History of colon polyps Health Maintenance Due Date Last Done Comments DISCUSS TOBACCO CESSATION (REFER TO SMARTSET #[id number]) 1965 Hepatitis B (1 of 3 - [...] Additional history exists Lipid Panel 07/09/2023 07/09/2018, /3 06/2016, 11/23/2014, Additional history exists GFR 12/30/2023 12/29/2022, [...] filedocumented as of this encounter Care Teams Refinery Process Engineer Relationship Specialty Start Date End Date Robbin Nguyen III, MD [address] [place] [address], [place] [address] PCP - General 11/18/05 documented as of this encounter
--- OUTSIDE RECORDS SUMMARY | 2023-07-22 07:15 | External Medical Summary | Summary of Care ---
Author Name Unknown Organization [facility] Address [address] [facility] [address] Phone [phone] Care Team Providers Care Seamless Tube Roller Name Role Phone Wendy GONZALES MD, Robbin Hung Primary Care Provider [phone] Reason for Referral * Evaluate & Treat - Unlimited Visits (Within 10 days (routine)) - Pending Review Specialty Diagnoses / Procedures Referred By Pedro pineda Referred To Contact Orthopaedic Surgery / Orthopedics Diagnoses Left knee injury Robbin Nguyen III, MD [address] [place] [address] Referral ID Status Reason Start Date Expiration Date Visits Requested Visits Authorized [id number] Pending Review Specialty Services Required 3 [phone] Question Answer Referral Priority Within 10 days (routine) Where should this appointment be scheduled? [facility] What body part is the patient being seen for? Thigh/Knee What condition is the patient being seen for? Sprain/Strain/Tear/Other Reason for Visit * Reason Onset Date Comments Referral Requested by Specialist 04/10/2023 Encounter Details Date Type Department Care Team Description 04/10/2023 Telephone Family Practice [facility] [address] [place] [address] [address] Robbin Nguyen III, MD [address] [place] [address] [address] Referral Requested by Specialist Allergies No known [...] (Moderna) 06/03/2021 Pneumococcal Conjugate Vacci ne, 20-valent ([id number]) 02/02/2023 Pneumococcal Polysaccharide PPV23 (Pneumovax) 11/28/2010 SEASONAL [...] as of this encounter Miscellaneous Notes * Addendum Note - Michelle Blevins LPN - 04/10/2023 10:24 AM EDTAddended by: MICHELLE BLEVINS on: 04/10/2023 10:24 AM Modules accepted: Orders * Telephone Encounter - Michelle Blevins LPN - 04/10/2023 10:24 AM EDT Ortho Referral ordered. * Telephone Encounter - Deb Carter - 04/10/2023 9:43 AM EDT Patient was seen in the ortho [facility] on 03/22 for a LFT knee injury. Please place a referral for this visit. Thanks documented in this encounter Plan of Treatment Upcoming Encounters Date Type Specialty Care Team Description 04/17/2023 Office Visit Orthopedics Jamil Marcus MD [address] [place] [address] 05/06/2023 Nurse Only Ancillary Nurse [facility] [address] [facility] [place] [address] 07/15/2023 Imaging Radiology Scheduled Procedures Name Priority Associated Diagnoses Date/Ti me COLONOSCOPY FLEXIBLE PROXIMAL DIAGNOSTIC Recall History of colon polyps Scheduled Referrals Name Type Priority Associated Diagnoses Order Schedule ORTHOPAEDICS REFERRAL OP Referral Within 10 days (routine) Left knee injury Ordered: 04/10/2023 Health Maintenance Due Date Last Done Comments DISCUSS TOBACCO CESSATION (REFER TO SMARTSET #[id number]) 1965 Hepatitis B (1 of 3 - [...] as of this encounter Visit Diagnoses Diagnosis Left knee injury- Primary Injury, other and unspecified, knee, leg, ankle, and foot documented in this encounter Care Teams Seamless Tube Roller Relationship Specialty Start Date End Date Wendy GONZALES, Robbin Hung MD [address] [place] [address] PCP - General 11/18/05 documented as of this encounter
--- OUTSIDE RECORDS SUMMARY | 2023-07-22 07:15 | External Medical Summary | Summary of Care ---
Author Name Unknown Organization [facility] Address [address] [facility] [place] [address] Phone [phone] Care Team Providers Care Head Of Mobile Name Role Phone Wendy GONZALES MD, Robbin Hung Primary Care Provider [phone] Reason for Visit * Reason Comments NEW PATIENT Left knee * Evaluate & Treat - Unlimited Visits (Within 30 days (routine)) - Authorized Specialty Diagnoses / Procedures Referred By Pedro pineda Referred To Contact Sports Medicine / Orthopedics Diagnoses Primary osteoarthritis of left knee SharerAntoinette PA-C [address] [place] [address] Referral ID Status Reason Start Date Expiration Date Visits Requested Visits Authorized [id number] Authorized Specialty Services Required 04/07/[phone] Encounter Details Date Type Department Care Team (Latest Contact Info) Description 04/17/2023 2:30 PM EDT Office Visit Orthopaedics [facility] [address] [place] [address] Jamil Marcus MD [address] [place] [address] Primary osteoarthritis of left knee* Allergies No known active allergiesdocumented as of this encounter (statuses as of 04/17/2023) Medications Medication Sig Dispensed Refills Start Date [...] as of this encounter (statuses as of 04/17/2023) Active Problems Problem Noted Date Diagnosed Date [...] as of this encounter (statuses as of 04/17/2023) Resolved Problems Problem Noted Date Diagnosed Date [...] as of this encounter (statuses as of 04/17/2023) Immunizations Name Administration Dates Next Due COVID-19 mRNA, LNP-s, No Pre serve, 2-Dose Series (Moderna) 10/04/2020,09/06/2020 COVID-19, mRNA, LNP-s, PF, B ooster, 100mcg/0.5mg (Moderna) 06/03/2021 Pneumococcal Conjugate Vacci ne, 20-valent ([id number]) 02/02/2023 Pneumococcal Polysaccharide PPV23 (Pneumovax) 11/28/2010 SEASONAL [...] as of this encounter Progress Notes * Jamil Marcus MD - 04/17/2023 2:30 PM EDT Jennifer Hernández [id number] Jennifer Hernández is a 57 year old female who presents for consultation to [facility] Orthopaedics and Sports Medicine for left knee injury/pain. Consult requested by Antoinette Kline PA-C (orthopedics) Jennifer Hernández is here unaccompanied Quality: reviewed and agree with Nursing Notes for HPI elements History: History - presents today for left knee pain. Pt states at the end of February she went to [place] and walked too much. States she has arthritis in her knee, but the walking around made it worse. Xray taken 04/07/23 She was also evaluated for this in our walk-in clinic Antoinette Kline PA-C (orthopedics) on 04/07/2023. Have read that note and in summary patient has known history of osteoarthritis. Suspicion was that she would aggravated her osteoarthritis. She is recommended to continue meloxicam and add in some Tylenol. Sports medicine referral placed to evaluate for possible injections in hinged knee brace was also discussed Patient has had significant benefit those since she was evaluated on that date. ROS: ROS per HPI otherwise non-contributory Past Medical History: Diagnosis Date Dyslipidemia, goal to be determined GERD (gastroesophageal reflux disease) HTN, goal below 140/90 Human papilloma virus 1995 Cervical - WILLIAM I Hyperthyroidism Grave's Disease (elevated TSI, biopsy consistent with that dx) Family History Problem Relation Age of Onset Breast Cancer Grandmother (Paternal) Brain cancer Grandmother (Paternal) Bone cancer Grandmother (Paternal) Lung cancer Grandmother (Maternal) Lung cancer Mother COPD Mother Heart Disorder Sister cad stents Diabetes Sister Diabetes Aunt (Paternal) Colon cancer No significant family history Ovarian cancer No significant family history Social History Socioeconomic History Marital status: Spouse name: Not on file Number of children: 0 Years of education: 12 Highest education level: Not on file Occupational History 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 Employer: [employer] 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 Employer: [employer] Comment: [employer] store Tobacco Use Smoking status: Every Day Packs/day: 0.50 Years: 20.00 Additional pack years: 0.00 Total pack years: 10.00 Types: Cigarettes Smokeless tobacco: Never [...] on file Food Insecurity: No Food Insecurity (12/29/2022) Hunger Vital Sign Worried About Running Out of Food in the Last Year: Never true Ran Out of Food in the Last Year: Never true Transportation Needs: Not on file Physical Activity: Not on file Stress: Not on file Social Connections: Not on file Intimate Partner Violence: Not on file Housing Stability: Not on file Physical Exam Constitutional: Generally well-nourished and in no acute distress Psychiatric: Mood and Affect normal Eyes: EOMI Respiratory: Normal respiratory effort with regular rate and rhythm Knee Exam, Bilateral Inspection: Unremarkable Alignment: Normal Bilateral Effusion: Negative Bilateral Palpation: Tender palpate greatest across the medial joint ROM: Flexion/Neutral/Extension: L - 120/0/0, R - 120/0/0 Radiology (I have personally reviewed the following films): 04/07/2023: Four view x-ray of the left knee Bones/joints: There is medial compartment narrowing with osteophytic lipping at the left tibiofemoral joint. There is degenerative change at the patellofemoral joint. No knee joint effusion is seen. There is no fracture. Soft tissues: Normal. IMPRESSION IMPRESSION: Degenerative change Assessment and Plan: 1) acute on chronic left knee pain Suspect aggravation of underlying DJD, which is moderate to severe in the medial compartment She is previous history of having steroid injections but did not have substantial benefit. She doesnot plan on repeating those. She is willing to try viscosupplementation would like to try 1 shot option. Nursing to get authorization Okay to continue meloxicam and Tylenol as long as not drinking more than 3 alcohol drinks per day Patient be scheduled in 4-6 weeks Jamil Marcus MD Primary Care Sports Medicine [facility]opaed[facility] [place] [address] documented in this encounter Nursing Notes * Marjorie Palacio MED ASSIST - 04/17/2023 2:28 PM EDT Pt presents today for left knee pain. Pt states at the end of February she went to [place] and walked too much. States she has arthritis in her knee, but the walking around made it worse. Xray taken 04/07/23 documented in this encounter Plan of Treatment Upcoming Encounters Date Type Department Care Team (Late st Contact Info) Description 05/06/2023 9:00 AM EST Nurse Only Ancillary [facility] [address] [place] [address] [place], Nurse Fam [facility] [address] [facility] [place] [address] 06/01/2023 2:00 PM EST Office Visit Orthopaedics [facility] [address] [place] [address] Jamil Marcus MD [address] [place] [address] 07/15/2023 10:45 AM EST Imaging Radiology [facility] 1st [facility] [address] [place] [address] Scheduled Procedures Name Priority Associated Diagnoses Date/Ti me COLONOSCOPY FLEXIBLE PROXIMAL DIAGNOSTIC Recall History of colon polyps Scheduled Referrals Name Type Priority Associated Diagnoses Orde r Schedule SPORTS MEDICINE REFERRAL OP Referral Within 30 days (routine) Primary osteoarthritis of left knee Ordered: 04/07/2023 Health Maintenance Due Date Last Done Comments [...] osteoarthrosis, lower leg documented in this encounter Care Teams Head Of Mobile Relationship Specialty Start Date End Date Robbin Nguyen III, MD [address] [place] [address] PCP - General 11/18/05 documented as of this encounter
--- OUTSIDE RECORDS SUMMARY | 2023-07-22 07:15 | External Medical Summary | Summary of Care ---
Author Name Unknown Organization [facility] Address [address] [facility] [address] Phone [phone] Care Team Providers Care Erector Operator Name Role Phone Wendy GONZALES MD, Robbin Hung Primary Care Provider [phone] Reason for Referral * Evaluate & Treat - Unlimited Visits (Within 30 days (routine)) - Pending Review Specialty Diagnoses / Procedures Referred By Pedro pineda Referred To Contact Sports Medicine / Orthopedics Diagnoses Primary osteoarthritis of left knee Antoinette Chaves PA-C [address] [place] [address] Referral ID Status Reason Start Date Expiration Date Visits Requested Visits Authorized [id number] Pending Review Specialty Services Required 3 [phone] Question Answer What body part is the patient being seen for? Thigh/Knee What condition is the patient being seen for? Arthritis including related infection Referral Priority Within 30 days (routine) Where should this appointment be scheduled? [facility] Dr Marcus Reason for Visit * Reason Comments NEW PATIENT L knee pain x couple weeks Encounter Details Date Type Department Care Team Description 04/07/2023 Office Visit Orthopaedics [facility] [address] [place] [address] Antoinette Chaves PA-C [address] [place] [address] Primary osteoarthritis of left knee*; Chronic pain [...] (Moderna) 06/03/2021 Pneumococcal Conjugate Vacci ne, 20-valent ([id number]) 02/02/2023 Pneumococcal Polysaccharide PPV23 (Pneumovax) 11/28/2010 SEASONAL [...] of this encounter Progress Notes * Antoinette Chaves PA-C - 04/07/2023 12:02 PM EDT Jennifer Hernández is a 57 year old female who presents for consultation to [facility] for left knee injury/pain. [...] has been treated with a medial off brick unloader tender brace as well as HEP. States she has tried cortisone injections in the past with no relief. Reports no relief with off brick unloader tender brace but does note improvement with OTC [...] E78.00 Morbid obesity due to excess calories (HCC) E66.01 Prediabetes R73.03 DDD (degenerative disc disease), lumbar M51.36 Acute right-sided low back pain with right-sided sciatica M54.41 Type 2 diabetes mellitus with hemoglobin A1c goal of less than 7.0% (HCC) E11.9 Type 2 diabetes mellitus with diabetic neuropathy (HCC) E11.40 Body mass index (BMI) of 45.0 to 49.9 in adult (HCC) Z68.42 Past Surgical History: Procedure Laterality Date COLONOSCOPY, DIAGNOSTIC (RECTUM) 12/03/2016 hyperplastic polyp, Granular Cell Tumor, repeat 1 yr/[facility] COLONOSCOPY, DIAGNOSTIC (RECTUM) 07/31/2020 inflammation on bx, diverticulosis, repeat 5 yrs / COLONOSCOPY FLEXIBLE PROXIMAL DIAGNOSTIC performed by Terry Platt DO at ENDOSCOPY [facility] LIGATE/CUT OVIDUCT(S) 01/31/2010 Dr. 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 Antoinette Chaves PA-C [facility]opa[facility] [address] [place] [address] documented in this encounter Nursing Notes * TIARRA Jorge - 04/07/2023 11:24 AM EDT Pt presents today for L knee pain x couple of weeks Denies injury, but did do a lot of walking in [place] a couple weeks ago TIARRA Jorge documented in this encounter Miscellaneous Notes * Addendum Note - Antoinette Chaves PA-C - 04/07/2023 1:20 PM EDTAddended by: ANTOINETTE CHAVES on: 04/07/2023 01:20 PM Modules accepted: Orders documented in this encounter Plan of Treatment Upcoming Encounters Date Type Specialty Care Team Description 05/06/2023 Nurse Only Ancillary [place], Nurse Fam [facility] [address] [place] [address] Pending Results Name Type Priority Associated Diagnoses [...] Comments DISCUSS TOBACCO CESSATION (REFER TO SMARTSET #9773) 1965 Hepatitis B (1 of 3 - 3-dose series) 1966 Albumin/Creatinine Ratio 1984 DIABETES-EYE EXAM 1984 Hepatitis C Screening 1984 HPV/Co-Test 1996 COLONOSCOPY-ANNUAL AGES 18-100 07/31/2021 07/31/2020, 07/31/2020, 12/03/2016 Cervical Cancer Screening 04/21/2022 Pap Smear 04/21/2022 04/21/2019, 05/23, 06/11/2015, Additional history exists Mammogram 11/25/2022 11/25/2021, 0607/2020, 06/01/2019, Additional history exists COVID-19 Vaccine (4 [...] leg documented in this encounter Care Teams Erector Operator Relationship Specialty Start Date End Date Robbin Nguyen III, MD [address] [place] [address], [place] [address] PCP - General 11/18/05 documented as of this encounter
--- OUTSIDE RECORDS SUMMARY | 2023-07-22 07:15 | External Medical Summary | Summary of Care ---
Author Name Unknown Organization [facility] Address [address] [facility] [address] Phone [phone] Care Team Providers Care Compressed Gas Plant Worker Name Role Phone Wendy GONZALES MD, Robbin Hung Primary Care Provider [phone] Reason for Visit * Reason Onset Date Comments Order Request 04/09/2023 Encounter Details Date Type Department Care Team Description 04/09/2023 Telephone Family Practice [facility] [address] [facility] [address] Robbin Nguyen III, MD 200 [place] [address] Order Request Allergies No known active allergiesdocumented as of this encounter (statuses as of 04/09/2023) Medications Medication Sig Dispensed Refills Start Date [...] as of this encounter (statuses as of 04/09/2023) Active Problems Problem Noted Date Body mass [...] as of this encounter (statuses as of 04/09/2023) Resolved Problems Problem Noted Date Resolved Date [...] as of this encounter (statuses as of 04/09/2023) Immunizations Name Administration Dates Next Due COVID-19 mRNA, LNP-s, No Pre serve, 2-Dose Series (Moderna) 10/04/2020,09/06/2020 COVID-19, mRNA, LNP-s, PF, B ooster, 100mcg/0.5mg (Moderna) 06/03/2021 Pneumococcal Conjugate Vacci ne, 20-valent ([id number]) 02/02/2023 Pneumococcal Polysaccharide PPV23 (Pneumovax) 11/28/2010 SEASONAL [...] encounter Miscellaneous Notes * Telephone Encounter - JATINDER Chapa - 04/09/2023 1:12 PM EDT My g 04/09 * Telephone Encounter - Melanie Gomes LPN - 04/09/2023 8:50 AM EDT Order placed please assist in scheduling * Telephone Encounter - JATINDER Artis - 04/09/2023 8:[address] order for mammogram documented in this encounter Plan of Treatment Upcoming Encounters Date Type Specialty Care Team Description 04/17/2023 Office Visit Orthopedics Jamil Marcus MD [address] [place] [address] 05/06/2023 Nurse Only Ancillary Nurse Guzman [facility] [address] [place] [address] Scheduled Orders Name Type Priority Associated Diagnoses Orde r Schedule MAMMOGRAM SCREENING BILATERAL Medical Imaging Routine Encounter for screening mammogram for breast cancer Expected: 07/10/2023, Expires: 05/10/2024 Scheduled Procedures Name Priority Associated Diagnoses Date/Ti [...] this encounter Visit Diagnoses Diagnosis Encounter for screening mammogram for breast cancer- Primary documented in this encounter Care Teams Compressed Gas Plant Worker Relationship Specialty Start Date End Date Robbin Nguyen III, MD [address] [place] [address], [place] [address] PCP - General 11/18/05 documented as of this encounter
--- OUTSIDE RECORDS SUMMARY | 2023-07-22 07:15 | External Medical Summary | Summary of Care ---
Author Name Unknown Organization [facility] Address [address] [facility] [place] [address] Phone [phone] Care Team Providers Care Fabric [employer]ile Factory Worker Name Role Phone Wendy GONZALES MD, Robbin Hung Primary Care Provider [phone] Reason for Visit * Reason Onset Date Comments Order Request 04/09/2023 Encounter Details Date Type Department Care Team (Late st Contact Info) Description 04/09/2023 Telephone Family Practice [facility] [place] [address] [facility] [place] [address] Robbin Nguyen III, MD [address] [facility] [place] [address] Order Request Allergies No known active allergiesdocumented as of this encounter (statuses as of 04/13/2023) Medications Medication Sig Dispensed Refills Start Date [...] as of this encounter (statuses as of 04/13/2023) Active Problems Problem Noted Date Diagnosed Date [...] as of this encounter (statuses as of 04/13/2023) Resolved Problems Problem Noted Date Diagnosed Date [...] as of this encounter (statuses as of 04/13/2023) Immunizations Name Administration Dates Next Due COVID-19 mRNA, LNP-s, No Pre serve, 2-Dose Series (Moderna) 10/04/2020,09/06/2020 COVID-19, mRNA, LNP-s, PF, B ooster, 100mcg/0.5mg (Moderna) 06/03/2021 Pneumococcal Conjugate Vacci ne, 20-valent ([id number]) 02/02/2023 Pneumococcal Polysaccharide PPV23 (Pneumovax) 11/28/2010 SEASONAL [...] * Telephone Encounter - JATINDER Chapa - 04/13/2023 10:07 AM EDT Pt is scheduled for 07/15 * Telephone Encounter - JATINDER Chapa - [...] Care Team (Late st Contact Info) Description 04/17/2023 2:30 PM EDT Office Visit Orthopaedics [facility] [address] [facility] [place] [address] Jamil Marcus MD [address] [facility] [place] [address] 05/06/2023 9:00 AM EST Nurse Only Ancillary [facility] [address] [facility] [place] [address] [place], Nurse Fam Prac [facility] [address] [facility] [place] [address] 07/15/2023 10:45 AM EST Imaging Radiology [facility] [address] [facility] [address] [facility] [place] [address] Scheduled Orders Name Type Priority Associated Diagnoses Orde r Schedule MAMMOGRAM SCREENING BILATERAL Medical Imaging Routine Encounter for screening mammogram for breast cancer Expected: 07/10/2023, Expires: 05/10/2024 Scheduled Procedures Name Priority Associated Diagnoses Date/Ti me COLONOSCOPY FLEXIBLE PROXIMAL DIAGNOSTIC Recall History of colon polyps Health Maintenance Due Date Last Done Comments DISCUSS TOBACCO CESSATION (REFER TO SMARTSET #8735) 1965 Hepatitis B (1 of 3 - 3-dose series) 1965 Albumin/Creatinine Ratio 1984 DIABETES-EYE EXAM 1984 Hepatitis C Screening 1984 HPV/Co-Test 1996 COLONOSCOPY-ANNUAL AGES 18-100 07/31/2021 07/31/2020, 07/31/2020, 12/03/2016 Cervical Cancer Screening 04/21/2022 Pap Smear 04/21/2022 04/21/2019, 05/23, 06/11/2015, Additional history exists Mammogram 11/25/2022 11/25/2021, 07/2020, 06/01/2019, Additional history exists COVID-19 Vaccine (24 season) 2023 06/03/2021, 10/04/2020, 09/06/2020 Influenza Vaccine [...] Primary documented in this encounter Care Teams Fab[employer] Factory Worker Relationship Specialty Start Date End Date Robbin Nguyen III, MD [address] [facility] [place] [address] PCP - General 11/18/05 documented as of this encounter
[2023-07-22 07:16] LABS: Basophils # (auto) 0.03 K/uL (0.00-0.20); Basophils % (auto) 0.8 %; Eosinophils # (auto) 0.03 K/uL (0.00-0.50); Eosinophils % (auto) 0.8 %; Hematocrit (blood only) 45.3 % (37.0-47.0); Hemoglobin 14.6 g/dl (12.0-16.0); Immature Granulocytes # (auto) 0.01 K/uL (0.01-0.20); Immature Granulocytes % (auto) 0.3 %; Lymphocytes # (auto) 0.88 K/uL (1.20-3.40); Mean Corpuscular Hemoglobin 29.2 pg (25.0-34.0); Mean Corpuscular Hgb Conc 32.2 g/dL (32.0-36.0); Mean Corpuscular Volume 90.6 fL (80.0-100.0); Monocytes % (auto) 13.1 %; Neutrophils # (auto) 2.37 K/uL (1.40-6.50); Platelet Count 147 K/uL (130-400); RDW Coefficient of Variation 13.7 % (11.5-14.5); RDW Standard Deviation 45.7 fL (36.4-46.3); White Blood Count 3.82 K/ul (4.8-10.8)
--- OUTSIDE RECORDS SUMMARY | 2023-07-22 07:16 | External Medical Summary | Summary of Care ---
Author Name Unknown Organization [facility] Address [address] [facility] [place] [address] Phone [phone] Care Team Providers Care Glass Fitter Name Role Phone Wendy GONZALES MD, Jenny Hung Primary Care Provider [phone] Reason for Visit * Reason Comments eRx-Medication Refill Encounter Details Date Type Department Care Team Description 03/10/2023 Refill Family Practice [facility] [place] [address] [facility] [place] [address] Jenny Sylvester III, MD 200 [place] [address] Allergies No known active allergiesdocumented as of this encounter (statuses as of 03/11/2023) Medications Medication Sig Dispensed Refills Start Date [...] Muscle spasms. 30 Tablet 0 01/20/2022 Active Lisinopril 20 MG Oral Tablet (Prinivil) Take by mouth 1 Tablet in the morning. 90 Tablet 3 04/11/2022 Active Atorvastatin Calcium 20 MG Oral Tablet [...] FOR PAIN 90 Tablet 1 03/11/2023 Active Meloxicam 15 MG Oral Tablet TAKE ONE TABLET BY MOUTH EVERY MORNING FOR PAIN 90 Tablet 0 12/15/2022 03/11/20 23 Discontinued documented as of this encounter (statuses as of 03/11/2023) Active Problems Problem Noted Date Body mass [...] as of this encounter (statuses as of 03/11/2023) Resolved Problems Problem Noted Date Resolved Date [...] as of this encounter (statuses as of 03/11/2023) Immunizations Name Administration Dates Next Due COVID-19 mRNA, LNP-s, No Pre serve, 2-Dose Series (Moderna) 10/04/2020,09/06/2020 COVID-19, mRNA, LNP-s, PF, B ooster, 100mcg/0.5mg (Moderna) 06/03/2021 Pneumococcal Conjugate Vacci ne, 20-valent ([id number]) 02/02/2023 Pneumococcal Polysaccharide PPV23 (Pneumovax) 11/28/2010 Seasonal Influenza Virus Vac cine, Unspecified Formulation 04/05/2020,04/04/2019,07/09/2018,07/13,03/22/2016,03/11/2010,02/22/2009 Seasonal Influenza, PF, 6 mo ns & Above, IM , (Flulaval) 04/04/2019,07/09/2018,07/13/2017 Seasonal Influenza, Quadriva lent, No Preserve, [...] encounter Miscellaneous Notes * Telephone Encounter - Jair Bajwa [facility] - 03/11/2023 10:22 AM EDT Signed Prescriptions: Disp Refills Meloxicam 15 MG Oral Tablet 90 Tab*1 Sig: LEWIS E ONE TABLET BY MOUTH EVERY MORNING FOR PAINAuthorizing Provider: JENNY SYLVESTER III User: JAIR BAJWA documented in this encounter Plan of Treatment Upcoming Encounters Date Type Specialty Care Team Description 05/06/2023 Nurse Only Ancillary Nurse [facility] [address] [place], [facility] Scheduled Procedures Name Priority Associated Diagnoses Date/Ti me COLONOSCOPY FLEXIBLE PROXIMAL DIAGNOSTIC Recall History of colon polyps Health Maintenance Due Date Last Done Comments DISCUSS TOBACCO CESSATION (REFER TO SMARTSET #[id number]) 1965 Hepatitis B (1 of 3 - 3-dose series) 1965 Albumin/Creatinine Ratio 1984 DIABETES-EYE EXAM 1984 Hepatitis C Screening 1984 HPV/Co-Test 1996 COVID-19 Vaccine (4 - Moderna series) 07/29/2021 06/03/2021, 10/04/2020, 09/06/2020 COLONOSCOPY-ANNUAL AGES 18-100 07/31/2021 07/31/2020, 07/31/2020, 12/03/2016 Cervical Cancer Screening 04/21/2022 Pap Smear 04/21/2022 04/21/2019, 05/23, 06/11/2015, Additional history exists Mammogram 11/25/2022 11/25/2021, 0607/2020, 06/01/2019, Additional history exists Influenza Vaccine (FLU shot) (#1) 2023 04/05/2020, [...] filedocumented as of this encounter Care Teams Glass Fitter Relationship Specialty Start Date End Date Jenny Sylvester III, MD [address] [place] [address], [place] [address] PCP - General 11/18/05 documented as of this encounter
--- OUTSIDE RECORDS SUMMARY | 2023-07-22 07:16 | External Medical Summary | Summary of Care ---
Author Name Unknown Organization [facility] Address [address] [facility] [place] [address] Phone [phone] Care Team Providers Care Bakery And Deli Sales Manager Name Role Phone Wendy GONZALES MD, Robbin Hung Primary Care Provider [phone] Reason for Visit * Reason Onset Date Comments Follow Up Blood sugar Physical-Exam Immunizations 02/02/2023 Shingrix Encounter Details Date Type Department Care Team Description 02/02/2023 Office Visit Family Practice [facility] [address] [facility] [place] [address] Angy Solorzano PA-C [address] [facility] [place] [id number] Well adult exam*; Type II diabetes mellitus with neurological manifestations (HCC); Hypercholesteremia; Need for vaccination for zoster; Need for pneumococcal vaccination; Toxic diffuse goiter; Gastroesophageal reflux disease with esophagitis, unspecified whether hemorrhage; Morbid obesity due to excess calories (HCC) Allergies No known active allergiesdocumented as of this encounter (statuses as of 02/02/2023) Medications Medication Sig Dispensed Refills Start Date [...] for Anxiety. 30 Tablet 0 08/09/2022 Active metFORMIN HCl ER 500 MG Oral Tablet Extended Release 24 Hour (Glucophage XR) Take 2 Tablets by mouth daily with breakfast. 180 Tablet 0 11/11/2022 Active Meloxicam 15 MG Oral Tablet TAKE ONE TABLET BY MOUTH EVERY MORNING FOR PAIN 90 Tablet 0 12/15/2022 Active amLODIPine Besylate 5 MG Oral Tablet (Norvasc)Indication s:HTN, goal below 140/90 TAKE ONE TABLET BY MOUTH EVERY MORNING 90 Tablet 3 01/13/2023 Active documented as of this encounter (statuses as of 02/02/2023) Active Problems Problem Noted Date Type 2 diabetes mellitus with diabetic n europathy 12/29/2022 Type 2 diabetes mellitus with hemoglobin A1c goal of less than 7.0% 01/27/2022 Body mass index (BMI) of 40.0 to 44.9 in adult 01/27/2022 Overview: Per Obesity protocol - Per Obesity protocol - Per Obesity protocol DDD (degenerative disc disease), lumbar 05/18/2021 Acute [...] as of this encounter (statuses as of 02/02/2023) Resolved Problems Problem Noted Date Resolved Date Body mass index (BMI) of 45.0 to 49.9 in adult 0 12/04/2020 01/30/2022 Overview: Per Obesity protocol - Per Obesity protocol Body mass index (BMI) of 40.0 to 44.9 in adult 0 10/30/2020 12/06/2020 Overview: Per Obesity protocol documented as of this encounter (statuses as of 02/02/2023) Immunizations Name Administration Dates Next Due COVID-19 mRNA, LNP-s, No Pre serve, 2-Dose Series (Moderna) 10/04/2020,09/06/2020 Covid-19 Mrna, Lnp-s, No Pre serve, Booster (Moderna) 06/03/2021 Pneumococcal Conjugate Vacci ne, 20-valent ([id number]) 02/02/2023 Pneumococcal Polysaccharide PPV23 (Pneumovax) 11/28/2010 Seasonal Influenza Virus Vac cine, Unspecified Formulation 04/05/2020,04/04/2019,07/09/2018,07/13,03/22/2016,03/11/2010,02/22/2009 Seasonal Influenza, Quadriva lent, No Preserve, 6 Mons & Above, IM 04/04/2019,07/09/2018,07/13/2017 Seasonal Influenza, Quadriva lent, No Preserve, [...] Sign Reading Time Taken Comments Blood Pressure 100/60 02/02/2023 11:47 AM EDT Pulse 58 02/02/2023 11:47 AM EDT Temperature 36.4 C (97.6 F) 02/02/2023 1 1:47 AM EDT Respiratory Rate 12 02/02/2023 11:4 7 AM EDT Oxygen Saturation 94% 02/02/2023 11: 47 AM EDT Inhaled Oxygen Concentration - - Weight 113.4 kg (250 lb 0.6 oz) 023 11:47 AM EDT Height 157.5 cm (5' 2") 02/02/2023 11:4 7 AM EDT Body Mass Index 45.73 02/02/2023 11:47 AM EDT documented in this encounter Patient Instructions * Patient Instructions* Fany Ribera, MED ASSIST - 02/02/2023 11:42 AM EDT ~~PATIENT INSTRUCTIONS FOR SHINGRIX VACCINE~~ Possible side [...] OF EYES, FACE OR INSIDE OF NOSE. Diabetes: Keeping Feet Healthy Inspect your feet every day for signs of a problem. Diabetes can damage nerves in your feet and cause neuropathy. This condition makes it hard for you to feel injuries or sore spots. Diabetes can also change blood flow, making it harder for small problems, like a blister, to heal properly. In fact, minor injuries can quickly become serious infections that send you to the hospital. Practice self-care to protect your feet and keep them healthy. Take Special Care Inspect your feet daily for problems such as redness, blisters, cracks, dry skin, or numbness. Use a mirror to see the bottoms of your feet. Or, ask for help. Manage your diabetes. Monitor and control your blood sugar. Take all your medications as prescribed. Avoid walking barefoot, even indoors. Wash your feet with warm water and mild soap. Dry well, especially between toes. Dont treat corns or calluses yourself. Talk to your doctor or folder machine operator (a doctor who specializes in foot care) if you need assistance trimming your toenails. Use moisturizing cream or lotion if you have dry skin, but dont use it between toes. Dont use heating pads on your feet. If you have neuropathy, you could get a burn and not feel it. Stop smoking. Smoking restricts blood flow and can make it harder for wounds to heal. Have Regular Checkups Foot problems can develop quickly. So be sure to follow your healthcare teams schedule for regular checkups. During office visits, take off your shoes and socks as soon as you get in the exam room. Ask your healthcare provider to examine your feet for problems. This will make it easier to find and treat small skin irritations before they get worse. Regular checkups can also help keep track of the blood flow and feeling in your feet. If you have neuropathy, you may need to have checkups more often. Wear Proper Footwear Wearing proper footwear is very important. If areas of your feet have been damaged by too much pressure, your healthcare provider may recommend changing your footwear. In some cases, avoiding high heels or tight work boots may be all thats needed. Or, your healthcare provider may recommend special shoes or custom inserts. These help protect your feet and keep existing irritations from getting worse. If you need special footwear, ask your healthcare provider if you qualify for [employer] diabetic shoe program. Make Sure Shoes and Socks Fit Any pair of shoes--new or old--should feel comfortable as soon as you put them on. There shouldnt be any rubbing when you walk. Wear the right shoe for any activity. For instance, a running shoe is designed to keep your feet injury-free while jogging. Buy shoes at the end of the day, when your feet are larger. Make sure they provide support without feeling too loose. Make sure your socks fit, t oo. Wear soft, seamless, well-padded socks for activity. Cotton or microfiber socks are best to help to absorb sweat. To protect your feet, avoid shoes that are open-toed or open-heeled. If you have questions about what kinds of shoes and socks are best, talk to your healthcare team. Get Regular Exercise Regular exercise improves blood flow in your feet. It also increases foot strength and flexibility.Gentle exercises, like walking or riding a stationary bicycle, are best. You can also do special foot exercises. Just be sure to talk with your healthcare provider before starting any exercise program. Also mention if any exercise causes pain, redness, or other signs of foot problems. Note: If you have any kind of break in the skin of your foot or ankle, keep the area clean. Then call your doctor--especially if the area doesnt appear to be healing. [phone] [employer], [address] [place] [address], [place] [address]. All rights reserved. This information is not intended as a substitute for professional medical care. Always follow your healthcare professional's instructions. ~~PATIENT INSTRUCTIONS FOR PNEUMOCOCCAL VACCINE~~ Possible side effects of pneumococcal vaccine, (pneumonia shot), are usually mild and can include: 1. Soreness or redness at injection site 2. Low grade fever 3. Body aches You may use Tylenol/Acetaminophen as needed for these symptoms. LET YOUR DOCTOR KNOW IMMEDIATELY IF YOU HAVE DIFFICULTY BREATHING OR SWALLOWING, EXPERIENCE ITCHINGOF FEET OR HANDS, HAVE SWELLING OF EYES, FACE OR INSIDE OF NOSE. ~~PATIENT INSTRUCTIONS FOR SHINGRIX VACCINE~~ Possible side [...] OF EYES, FACE OR INSIDE OF NOSE. ~~PATIENT INSTRUCTIONS FOR SHINGRIX VACCINE~~ Possible side [...] OF EYES, FACE OR INSIDE OF NOSE. BMI (Body Mass Index) is the number obtained by dividing a person's weight in kilograms by his or her height in meters squared. BMI is used in determining obesity. BMI is not used to determine a person's actual percentage of body fat, but it is a good tool to hydrographic surveyor weight in terms of what is healthy and unhealthy. It is used to identify adults at increased risk for developing weight related medical problems. Estimated body mass index is 45.73 kg/m as calculated from the following: Height as of this encounter: 1.575 m (5' 2"). Weight as of this encounter: 113.4 kg (250 lb 0.6 oz). Severe Obesity - BMI 40 kg/m2 and above - Severely obese individuals are at a very high risk for developing: * Heart disease * Stroke * Diabetes * High Blood Pressure * High Cholesterol * GERD (acid reflux) * Sleep Apnea * Osteoarthritis * Fatty Liver Disease * Certain Types of Cancers * Gout * Gall Bladder Disease - Weight loss has been shown to decrease weight related medical problems. - A BMI of 40 kg/m2 or higher decreases lifespan by 10 yrs, compared to those with a normal BMI. - A 12-week weight management text message program is also available. Go to [employer] and seethe message under '[employer] News' for more information and enrollment. Patient is Instructed to: Diet: * Limit total fat intake to no more than 40 grams per day (low fat diet). * Increase fruits and vegetables to 5 servings per day, combined. * Limited starches (breads, pasta, rice, potatoes, corn, cereals) to 4 servings per day. Avoid Calorie Containing Drinks: * No fruit juices, regular sodas or sweetened drinks. * Water is preferred - 64 ounces per day unless advised of a fluid restriction. * Diet sodas and drinks permitted. Keep Honest, Accurate Food logs: * www.CO2Stats.Hiri * www.TrialScope * If you bite it - write it! Weigh Yourself Weekly: * Morning is best. * Try to do this outside your home. * Have a friend/spouse remind you to weigh yourself, accountability to others helps. Perform 30 minutes of physical activity daily: * Can do all at once or 5 minutes 6 times per day * 8, 000-10,000 steps per day using a pedometer * Make it fun! documented in this encounter Progress Notes * Angy Solorzano PA-C - 02/02/2023 12:23 PM EDT Jennifer Hernández is a 57 year old female who presents for an annual check-up. Current concerns: Loss of . Unexpected loss of friend in motorcycle.having more crying spells. Denies chest pain, sob, palpitations, edema, headaches, or dizzy Had been drinking vodka. Thinks it caused some heart issues. Appetite fair, but poor choices. Sleep frquent awakenings Urination/ bowel movements good Concentration good Interest diminished Has mood swings Denies suicidal or homicidal Past Medical History: Diagnosis Date Dyslipidemia, goal to be determined GERD (gastroesophageal reflux disease) HTN, goal below 140/90 Human papilloma virus 1995 Cervical - WILLIAM I Hyperthyroidism Grave's Disease (elevated TSI, biopsy consistent with that dx) Past Surgical History: Procedure Laterality Date COLONOSCOPY, DIAGNOSTIC (RECTUM) 12/03/2016 hyperplastic polyp, Granular Cell Tumor, repeat 1 yr/[facility] COLONOSCOPY, DIAGNOSTIC (RECTUM) 07/31/2020 inflammation on bx, diverticulosis, repeat 5 yrs / COLONOSCOPY FLEXIBLE PROXIMAL DIAGNOSTIC performed by Terry Platt DO at [facility] LIGATE/CUT OVIDUCT(S) 01/31/2010 Dr. Shepard MAMMOGRAM - BILATERAL 10/20/2006 birad code 2, yearly MISCELLANEOUS ORDER ([facility] ONLY) Removal of a bone spur R wrist as a teen REMOVE TONSILS & ADENOIDS, AGE 12+ 1978 Tonsillectomy/Adenoids,13+ Y/O Current Outpatient Medications Medication Sig Dispense Refill [...] needed for Muscle spasms. 30 Tablet 0 Lisinopril 20 MG Oral Tablet (Prinivil) Take by mouth 1 Tablet in the morning. 90 Tablet 3 Atorvastatin Calcium 20 MG Oral Tablet (Lipitor) Take by mouth 1 Tablet in the morning. 30 Tablet 11 Metoprolol Tartrate 50 MG Oral Tablet (Lopressor) TAKE ONE TABLET BY MOUTH EVERY MORNING AND 1 TABLET BEFORE BEDTIME 180 Tablet 3 LORazepam 0.5 MG Oral Tablet (Ativan) Take 1 Tablet by mouth 3 times a day as needed for Anxiety. 30 Tablet 0 metFORMIN HCl ER 500 MG Oral Tablet Extended Release 24 Hour (Glucophage XR) Take 2 Tablets by mouth daily with breakfast. 180 Tablet 0 Meloxicam 15 MG Oral Tablet TAKE ONE TABLET BY MOUTH EVERY MORNING FOR PAIN 90 Tablet 0 amLODIPine Besylate 5 MG Oral Tablet (Norvasc) TAKE ONE TABLET BY MOUTH EVERY MORNING 90 Tablet3 No current facility-administered medications for this visit. 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 Patient is postmenopausal., PHYSICAL EXAMINATION: BP 100/60 (BP Site: Left Arm, BP Position: Sitting, BP Cuff Size: Large) | Pulse 58 | Temp 36.4 C(97.6 F) (Tympanic) | Resp 12 | Ht 1.575 m (5' 2") | Wt 113.4 kg (250 lb 0.6 oz) | LMP 01/24/2017(Approximate) | SpO2 94% | BMI 45.73 kg/m | BSA 2.23 m General appearance - well nourished, comfortable. Skin - no rashes or lesions suspicious for malignancy. Head - without deformity, mass, or tenderness. Eyes - conjuctiva clear, EOMI, nondilated limited fundoscopic exam without obvious pathology. Ears - canals clear, TMs normal. Nose/Sinuses - normal mucosa without mass. Oropharynx -no oral lesions. Neck - normal ROM, supple, without adenopathy, thyromegaly, or bruit. Back - without deformity or tenderness. Lungs - symmetric and full breath sounds without rales, rhonchi, or wheezes. Heart - normal precordial impulse, PMI nondisplaced, normal S1,S2, without murmurs, rubs, or gallops. carotid upstrokes 2/4 without bruit. Breasts - symmetric, no masses or tenderness, axillae negative. Abdomen - nondistended, no organomegaly, nontender to palpation,bowel sounds active. Extremities - no cyanosis, clubbing, or edema. Musculoskeletal - joints without restriction in range of motion or deformity. Peripheral pulses - symmetric and intact. Neuro - normal gait and station, without tremor, symmetric motor strength, DTRs symmetric. Pelvic- deferred ASSESSMENT/PLAN: (Z00.00) Well adult exam (primary encounter diagnosis) Plan: (E11.49) Type II diabetes mellitus with neurological manifestations (HCC) Plan: DIABETES FOOT EXAM (E78.00) Hypercholesteremia Plan: (Z23) Need for vaccination for zoster Plan: ZOSTER VACCINE RECOMB, 2 DOSE, IM (SHINGRIX), ZOSTER VACCINE RECOMB, 2 DOSE, IM (SHINGRIX) (Z23) Need for pneumococcal vaccination Plan: PNEUMOCOCCAL VACC, PCV20, IM ([id number]) (E05.00) Toxic diffuse goiter Plan: (K21.00) Gastroesophageal reflux disease with esophagitis, unspecified whether hemorrhage Plan: Continue current medications Diet and exercise discussed Patient counseling on weight management given. * Fany Ribera, MED ASSIST - 02/02/2023 11:42 AM EDT Does the patient have active shingles? No [...] prescription/drug coverage. Patient has been informed that [employer] copays are close to $0. In most cases copays will be around $10. The maximum co-pay patients may get could as high as $200. not applicable Shingrix Vaccine Information Sheet has been provided. Fany Ribera, Miappi 02/02/2023 11:42 AM IMMUNIZATION ADMINISTRATION DOCUMENTATION Time Out Procedure Performed: Yes Patient Identified (Ask Name/Date of ): Yes Patient allergic to latex?No VFC Stock? No Immunization(s) verified: Yes, Immunization Name: Shingrix, VIS Sheet(s) given: Yes Verified Side and Site: Yes Verified Shot(s) with Parent(s)/Patient: Yes Shingrix was administered per clinic protocol. Patient received the Shingrix VIS (Vaccine Information Sheet). Fany Ribera Miappi, 02/02/2023, 11:42 AMSocks and Shoes Removed for Annual Diabetic Foot Screening RIGHT FOOT: No Reddened, Cracking, Or Open Areas Noted. RIGHT Dorsalis Pedis Pulse: Palpable RIGHT Posterior Tibial Pulse: Palpable RIGHT Monofilament:Patient reports feeling monofilament pressure on plantar surface of foot LEFT FOOT: No Reddened, Cracking or Open Areas Noted. LEFT Dorsalis Pedis Pulse: Palpable LEFT Posterior Tibial Pulse: Palpable LEFT Monofilament:Patient reports feeling monofilament pressure on plantar surface of foot Do you need diabetic shoes: No Immunization Administration Documentation Time Out Procedure Performed: Yes Patient Identified (Ask Name/Date of ): Yes Does the patient have a fever greater than 101 degrees today? No Patient allergic to latex? No VFC Stock: No Immunization(s) verified: Yes, Immunization Name: Prevnar 20 (PCV20), VIS Sheet(s) given: Yes Verified Side and Site: Yes Verified Shot(s) with Parent(s)/Patient: Yes Does the patient have active shingles? No [...] prescription/drug coverage. Patient has been informed that [employer] copays are close to $0. In most cases copays will be around $10. The maximum co-pay patients may get could as high as $200. yes Shingrix Vaccine Information Sheet has been provided. Fany Ribera, Miappi 02/02/2023 11:54 AM IMMUNIZATION ADMINISTRATION DOCUMENTATION Time Out Procedure Performed: Yes Patient Identified (Ask Name/Date of ): Yes Patient allergic to latex?No VFC Stock? No Immunization(s) verified: Yes, Immunization Name: Shingrix, VIS Sheet(s) given: Yes Verified Side and Site: Yes Verified Shot(s) with Parent(s)/Patient: Yes Shingrix was administered per clinic protocol. Patient received the Shingrix VIS (Vaccine Information Sheet). Fany Ribera, Miappi, 02/02/2023, 11:54 AM Does the patient have active shingles? No [...] prescription/drug coverage. Patient has been informed that [employer] copays are close to $0. In most cases copays will be around $10. The maximum co-pay patients may get could as high as $200. yes Shingrix Vaccine Information Sheet has been provided. NALLELY Vicente 02/02/2023 11:55 AM IMMUNIZATION ADMINISTRATION DOCUMENTATION Time Out Procedure Performed: Yes Patient Identified (Ask Name/Date of ): Yes Patient allergic to latex?No VFC Stock? No Immunization(s) verified: Yes, Immunization Name: Shingrix, VIS Sheet(s) given: Yes Verified Side and Site: Yes Verified Shot(s) with Parent(s)/Patient: Yes Shingrix was administered per clinic protocol. Patient received the Shingrix VIS (Vaccine Information Sheet). NALLELY Vicente, 02/02/2023, 11:55 AM documented in this encounter Nursing Notes * NALLELY Vicente - 02/02/2023 11:38 AM EDT Jennifer Hernández presents for annual physical exam and to discuss her blood sugars. Medications & HM reviewed. documented in this encounter Plan of Treatment Upcoming Encounters Date Type Specialty Care Team Description 05/06/2023 Nurse Only Ancillary Nurse Guzman [facility] [address] [address] [place] [id number] Scheduled Procedures Name Priority Associated Diagnoses Date/Ti me COLONOSCOPY FLEXIBLE PROXIMAL DIAGNOSTIC Recall History of colon polyps Health Maintenance Due Date Last Done Comments DISCUSS TOBACCO CESSATION (REFER TO SMARTSET #[id number]) 1965 Hepatitis B (1 of 3 - [...] Additional history exists Lipid Panel 07/09/2023 07/09/2018, 05/3 06/2016, 11/23/2014, Additional history exists GFR 12/30/2023 12/29/2022, 05/23, 06/28/2020, Additional history exists DIABETES-FOOT EXAM 02/03/2024 02/02/2023 Depression Screening, Annual for Pts 12 and Over 02/03/2024 02/02/2023, 06/11/2015 (Discussed) DTaP,Tdap,and Td Vaccines (4 - Td or [...] as of this encounter Visit Diagnoses Diagnosis Well adult exam- Primary Routine general medical examination at a health care facility Type II diabetes mellitus with neurological manifestations (HCC) Type II or unspecified type diabetes mellitus with neurological manifestations, not stated as uncontrolled Hypercholesteremia Pure hypercholesterolemia Need for vaccination for zoster Need for prophylactic vaccination and inoculation against other viral diseases Need for pneumococcal vaccination Need for prophylactic vaccination against streptococcus pneumoniae (pneumococcus) Toxic diffuse goiter Toxic diffuse goiter without mention of thyrotoxic crisis or storm Gastroesophageal reflux disease with esophagitis, unspecified whether hemorrhage Morbid obesity due to excess calories (HCC) documented in this encounter Care Teams Bakery And Deli Sales Manager Relationship Specialty Start Date End Date Robbin Nguyen III, MD [address] [place] [id number] PCP - General 11/18/05 documented as of this encounter
--- OUTSIDE RECORDS SUMMARY | 2023-07-22 07:16 | External Medical Summary | Summary of Care ---
Author Name Unknown Organization [facility] [address] [address] Phone [phone] Care Team Providers Care Medical Detail Representative Name Role Phone Wendy GONZALES MD, Jenny Hung Primary Care Provider [phone] Reason for Visit * Reason Comments eRx-Medication Refill Encounter Details Date Type Department Care Team Description 03/13/2023 Refill Family Practice [facility] [place] [address] [facility] [place] [address] Jenny Sylvester III, MD [address] [place] [address] Allergies No known active allergiesdocumented as of this encounter (statuses as of 03/13/2023) Medications Medication Sig Dispensed Refills Start Date [...] EVERY MORNING 90 Tablet 3 03/13/2023 Active Lisinopril 20 MG Oral Tablet (Prinivil) Take by mouth 1 Tablet in the morning. 90 Tablet 3 04/11/2022 03/13/20 23 Discontinued documented as of this encounter (statuses as of 03/13/2023) Active Problems Problem Noted Date Body mass [...] as of this encounter (statuses as of 03/13/2023) Resolved Problems Problem Noted Date Resolved Date [...] as of this encounter (statuses as of 03/13/2023) Immunizations Name Administration Dates Next Due COVID-19 mRNA, LNP-s, No Pre serve, 2-Dose Series (Moderna) 10/04/2020,09/06/2020 COVID-19, mRNA, LNP-s, PF, B ooster, 100mcg/0.5mg (Moderna) 06/03/2021 Pneumococcal Conjugate Vacci ne, 20-valent ([id number]) 02/02/2023 Pneumococcal Polysaccharide PPV23 (Pneumovax) 11/28/2010 Seasonal [...] encounter Miscellaneous Notes * Telephone Encounter - Alexus Daigle, [facility] - 03/13/2023 11:12 AM EDTSigned Prescriptions: Disp Refills Lisinopril 20 MG Oral Tablet (Prinivil) 90 Tab*3 Sig: TAKE ONE TABLET BY MOUTH EVERY MORNINGAuthorizing Provider: JENNY SYLVESTER III User: ALEXUS DAIGLE-- documented in this encounter Plan of Treatment Upcoming Encounters Date Type Specialty Care Team Description 05/06/2023 Nurse Only Ancillary Nurse Gu[facility] [address] [place] [address] Scheduled Procedures Name Priority Associated Diagnoses Date/Ti me COLONOSCOPY FLEXIBLE PROXIMAL DIAGNOSTIC Recall History of colon polyps Health Maintenance Due Date Last Done Comments DISCUSS TOBACCO CESSATION (REFER TO SMARTSET #5472) 1966 Hepatitis B (1 of 3 - 3-dose series) 1966 Albumin/Creatinine Ratio 1984 DIABETES-EYE EXAM 1984 Hepatitis C Screening 1984 HPV/Co-Test 1996 COVID-19 Vaccine (4 - Moderna series) 07/29/2021 06/03/2021, 10/04/2020, 09/06/2020 COLONOSCOPY-ANNUAL AGES 18-100 07/31/2021 07/31/2020, 07/31/2020, 12/03/2016 Cervical Cancer Screening 04/21/2022 Pap Smear 04/21/2022 04/21/2019, 05/23, 06/11/2015, Additional history exists Mammogram 11/25/2022 11/25/2021, 06/07/2020, 06/01/2019, Additional history exists Influenza Vaccine (FLU [...] filedocumented as of this encounter Care Teams Medical Detail Representative Relationship Specialty Start Date End Date Jenny Sylvester III, MD [address] [place] [address] PCP - General 11/18/05 documented as of this encounter
[2023-07-22 07:20] LABS: Calcium 9.3 mg/dl (8.6-10.3); Creatinine Clr Calc Pharmacy 124.4 ml/min; Est GFR (African American) 119.4 ml/min
[2023-07-22] MEDS: METOPROLOL TARTRATE 50 MG TAB PO SCH ×2 (08:19→20:29)
--- NOTE | 2023-07-22 09:25 | Hospitalist Progress Note ---
Date of Service July 22, 2023 Assessment & Plan (1) Acute hypoxemic respiratory failure: Plan: Secondary to influenza illness Medical telemetry Supplemental O2 Tamiflu duonebs Hypertensive crisis secondary to above - Analgesia, titrate home BP meds - cont. home amlodipine, lisinopril, metoprolol - monitor BP, currently BP at goal Hyperlipidemia, on statin Rx , cont. Hyperthyroidism, off maintenance medications for years now Ongoing tobacco abuse, Nicotine patch as needed DVT prophylaxis. Lovenox subcu Full code Admission and Anticipated Discharge Date Admission Date: July 21, 2023 Subjective Pt seen in follow up of shortness of breath, hypoxia, + Flu Lying in bed in no acute distress, currently on 2 L of suppl. oxygen Reports she is feeling better, has some dry cough. asking about breathing treatment. Reports she received one in ED and felt it helped her. Currently no fever, chills, chest pain, shortness of breath. No abd. pain, n/v Review of Systems Review of Systems: All systems reviewed & are unremarkable except as noted in Subjective Physical Exam Physical Exam: GENERAL: obese F in NAD, on suppl. O2 SKIN: Normal color, warm HEENT: NC/AT, EOMI NECK : Supple CHEST : CTAB HEART : RRR, no obvious murmurs ABDOMEN: Some distention, nontender, obese, + bowel sounds EXTREMITIES : No LE edema, moves extremities NEUROLOGIC : awake, alert, oriented, answers appropriately, no facial asymmetry, moves extremities Results & Data Results & Data Vital Signs (Past 12 Hours) Vital Signs Temp Pulse Pulse Resp BP BP Pulse Ox 07/22/23 07:11 56 L 07/22/23 04:00 37.0 C 60 18 137/74 93 07/21/23 23:52 07/21/23 23:26 36.4 C L 56 L 20 136/54 L 94 07/21/23 23:14 36.4 C L 56 L 20 136/54 L 94 07/21/23 22:54 07/21/23 22:30 62 28 H 153/98 H 92 07/21/23 22:00 62 26 H 145/82 H 93 07/21/23 21:50 61 22 151/76 H 93 O2 Del Method O2 Flow Rate 07/22/23 07:11 07/22/23 04:00 Nasal Cannula 2 07/21/23 23:52 Nasal Cannula 2 07/21/23 23:26 Nasal Cannula 2 07/21/23 23:14 Nasal Cannula 2 07/21/23 22:54 Nasal Cannula 2 07/21/23 22:30 07/21/23 22:00 07/21/23 21:50 Nasal Cannula 2 Laboratory Results 07/22/23 07/21/23 07/21/23 Range/Units 06:46 19:55 19:08 WBC 3.82 L 6.98 (4.8-10.8) K/ul RBC 5.00 5.20 (4.20-5.40) M/uL Hgb 14.6 15.2 (12.0-16.0) g/dl Hct 45.3 46.0 (37.0-47.0) % MCV 90.6 88.5 (80.0-100.0) fL MCH 29.2 29.2 (25.0-34.0) pg MCHC 32.2 33.0 (32.0-36.0) g/dL RDW Std Deviation 45.7 43.5 (36.4-46.3) fL RDW Coeff of Angela 13.7 13.5 (11.5-14.5) % Plt Count 147 162 (130-400) K/uL MPV 9.0 L 9.0 L (9.4-12.4) fL Immature Gran % (Auto) 0.3 0.4 % Neut % (Auto) 62.0 84.8 % Lymph % (Auto) 23.0 6.6 % Mcdowell % (Auto) 13.1 7.2 % Eos % (Auto) 0.8 0.3 % Baso % (Auto) 0.8 0.7 % Neut # (Auto) 2.37 5.92 (1.40-6.50) K/uL Lymph # (Auto) 0.88 L 0.46 L (1.20-3.40) K/uL Mcdowell # (Auto) 0.50 0.50 (0.11-0.59) K/uL Eos # (Auto) 0.03 0.02 (0.00-0.50) K/uL Baso # (Auto) 0.03 0.05 (0.00-0.20) K/uL Immature Gran # (Auto) 0.01 0.03 (0.01-0.20) K/uL Sodium 136 135 L (136-145) mmol/L Potassium 4.0 3.9 (3.5-5.1) mmol/L Chloride 102 101 (98-107) mmol/L Carbon Dioxide 28 26 (21-32) mmol/L Anion Gap 6 8 (3-11) BUN 11 10 (6-23) mg/dl Creatinine 0.58 L 0.63 (0.6-1.2) mg/dl Est Cr Clr Drug Dosing 124.4 116.4 ml/min Est GFR ( Amer) 119.4 116.2 ml/min Est GFR (Non-Af Amer) 103.0 100.3 ml/min BUN/Creatinine Ratio 19.0 15.9 (10-20) Glucose 88 103 H (70-99(Fasting)) mg/dl Calcium 9.3 9.4 (8.6-10.3) mg/dl Magnesium 1.7 (1.7-2.4) mg/dl Total Bilirubin 0.6 (0.2-1.0) mg/dl AST 15 (13-39) U/L ALT 18 (7-52) U/L Alkaline Phosphatase 89 (34-104) U/L Troponin I High Sens 8.0 (0-14) pg/ml Total Protein 7.2 (6.0-8.3) gm/dl Albumin 4.2 (3.4-5.0) gm/dl Globulin 3.0 (2.5-4.0) gm/dl Albumin/Globulin Ratio 1.4 (0.9-2) Urine Color Yellow Urine Appearance Clear (Clear) Urine pH 6.5 (4.5-7.5) Ur Specific Willis 1.022 (1.000-1.030) Urine Protein Trace H (Negative) Urine Glucose (UA) Negative (Negative) Urine Ketones 1+ H (Negative) Urine Blood 2+ H (Negative) Urine Nitrite Negative (Negative) Urine Bilirubin Negative (Negative) Urine Urobilinogen Negative (Negative) Ur Leukocyte Esterase Negative (Negative) Urine WBC (Auto) 1-5 (0-5) /hpf Urine RBC (Auto) >30 H (0-4) /hpf U Hyaline Cast (Auto) 1-5 (0-5) /lpf U Epithel Cells (Auto) >30 H (0-5) /lpf Urine Bacteria (Auto) Negative (Negative) Nasal Influ A H1 2009 PCR (NotDetected) Adenovirus (PCR) (NotDetected) B. pertussis DNA (PCR) (NotDetected) B.parapertussis DNA PCR (NotDetected) C. pneumoniae DNA (PCR) (NotDetected) Coronavirus OC43 (PCR) (NotDetected) Coronavirus HKU1 (PCR) (NotDetected) Coronavirus 229E (PCR) (NotDetected) SARS-CoV-2 (PCR) (NotDetected) Coronavirus NL63 (PCR) (NotDetected) Human Metapneumovir PCR (NotDetected) Influenza Type B (PCR) (NotDetected) M. pneumoniae (PCR) (NotDetected) Parainfluenza 1 (PCR) (NotDetected) Parainfluenza 2 (PCR) (NotDetected) Parainfluenza 3 (PCR) (NotDetected) Parainfluenza 4 (PCR) (NotDetected) RSV (PCR) (NotDetected) Entero/Rhino (PCR) (NotDetected) 07/21/23 Range/Units 19:00 WBC (4.8-10.8) K/ul RBC (4.20-5.40) M/uL Hgb (12.0-16.0) g/dl Hct (37.0-47.0) % MCV (80.0-100.0) fL MCH (25.0-34.0) pg MCHC (32.0-36.0) g/dL RDW Std Deviation (36.4-46.3) fL RDW Coeff of Angela (11.5-14.5) % Plt Count (130-400) K/uL MPV (9.4-12.4) fL Immature Gran % (Auto) % Neut % (Auto) % Lymph % (Auto) % Mcdowell % (Auto) % Eos % (Auto) % Baso % (Auto) % Neut # (Auto) (1.40-6.50) K/uL Lymph # (Auto) (1.20-3.40) K/uL Mcdowell # (Auto) (0.11-0.59) K/uL Eos # (Auto) (0.00-0.50) K/uL Baso # (Auto) (0.00-0.20) K/uL Immature Gran # (Auto) (0.01-0.20) K/uL Sodium (136-145) mmol/L Potassium (3.5-5.1) mmol/L Chloride (98-107) mmol/L Carbon Dioxide (21-32) mmol/L Anion Gap (3-11) BUN (6-23) mg/dl Creatinine (0.6-1.2) mg/dl Est Cr Clr Drug Dosing ml/min Est GFR ( Amer) ml/min Est GFR (Non-Af Amer) ml/min BUN/Creatinine Ratio (10-20) Glucose (70-99(Fasting)) mg/dl Calcium (8.6-10.3) mg/dl Magnesium (1.7-2.4) mg/dl Total Bilirubin (0.2-1.0) mg/dl AST (13-39) U/L ALT (7-52) U/L Alkaline Phosphatase (34-104) U/L Troponin I High Sens (0-14) pg/ml Total Protein (6.0-8.3) gm/dl Albumin (3.4-5.0) gm/dl Globulin (2.5-4.0) gm/dl Albumin/Globulin Ratio (0.9-2) Urine Color Urine Appearance (Clear) Urine pH (4.5-7.5) Ur Specific Willis (1.000-1.030) Urine Protein (Negative) Urine Glucose (UA) (Negative) Urine Ketones (Negative) Urine Blood (Negative) Urine Nitrite (Negative) Urine Bilirubin (Negative) Urine Urobilinogen (Negative) Ur Leukocyte Esterase (Negative) Urine WBC (Auto) (0-5) /hpf Urine RBC (Auto) (0-4) /hpf U Hyaline Cast (Auto) (0-5) /lpf U Epithel Cells (Auto) (0-5) /lpf Urine Bacteria (Auto) (Negative) Nasal Influ A H1 2008 PCR DETECTED A* (NotDetected) Adenovirus (PCR) Not Detected (NotDetected) B. pertussis DNA (PCR) Not Detected (NotDetected) B.parapertussis DNA PCR Not Detected (NotDetected) C. pneumoniae DNA (PCR) Not Detected (NotDetected) Coronavirus OC43 (PCR) Not Detected (NotDetected) Coronavirus HKU1 (PCR) Not Detected (NotDetected) Coronavirus 229E (PCR) Not Detected (NotDetected) SARS-CoV-2 (PCR) Not Detected (NotDetected) Coronavirus NL63 (PCR) Not Detected (NotDetected) Human Metapneumovir PCR Not Detected (NotDetected) Influenza Type B (PCR) Not Detected (NotDetected) M. pneumoniae (PCR) Not Detected (NotDetected) Parainfluenza 1 (PCR) Not Detected (NotDetected) Parainfluenza 2 (PCR) Not Detected (NotDetected) Parainfluenza 3 (PCR) Not Detected (NotDetected) Parainfluenza 4 (PCR) Not Detected (NotDetected) RSV (PCR) Not Detected (NotDetected) Entero/Rhino (PCR) Not Detected (NotDetected) Medications Administered Current Inpatient Medications Acetaminophen (Acetaminophen 325 Mg Tab) 650 mg PO QID PRN PRN Reason: pain/fever Stop: 08/20/23 22:23 Amlodipine Besylate (Amlodipine Besylate 5 Mg Tab) 5 mg PO [facility] Stop: 08/21/23 08:59 Atorvastatin Calcium (Atorvastatin 20 Mg Tab) 20 mg PO [facility] Stop: 08/21/23 08:59 Potassium Chloride/Sodium Chloride (Normal Saline W/20 Meq Kcl) 20 meq in 1,000 mls @ 50 mls/hr IV .Q20H ONE; Protocol Stop: 07/22/23 17:10 Last Admin: 07/21/23 21:50 Dose: 50 mls/hr Promethazine HCl 12.5 mg/ (Sodium Chloride) 50.5 mls @ 202 mls/hr IV Q6H PRN PRN Reason: Nausea And Vomiting Stop: 08/20/23 21:10 Lisinopril ([facility] 20 Mg Tab) [facility] [place] Stop: 08/21/23 08:59 Lorazepam (Lorazepam 0.5 Mg Tab) 0.5 mg PO TID PRN PRN Reason: Anxiety Stop: 08/20/23 22:23 Metoprolol Tartrate (Metoprolol Tartrate 50 Mg Tab) 50 mg PO BID [facility] Stop: 08/21/23 08:59 Last Admin: 07/22/23 08:19 Dose: Not Given Oseltamivir Phosphate (Oseltamivir Phosphate 75 Mg Cap) 75 mg PO BID [facility]; Protocol Stop: 07/26/23 20:59 Pantoprazole Sodium (Pantoprazole 40 Mg Tab) 40 mg PO HS PRN PRN Reason: Acid Reflux Stop: 08/20/23 23:25
[2023-07-22] MEDS: amLODIPine BESYLATE 5 MG TAB PO SCH (09:52)
[2023-07-22] MEDS: OSELTAMIVIR PHOSPHATE 75 MG CAP PO SCH ×2 (09:52→20:28)
[2023-07-22] MEDS: ATORVASTATIN 20 MG TAB PO SCH (09:53)
[2023-07-22] MEDS: lisinopril 20 MG TAB PO SCH (09:53)
--- NOTE | 2023-07-22 15:06 | Electrocardiogram Report ---
Test Reason : Blood Pressure : / mmHG Vent. Rate : 060 BPM Atrial Rate : 060 BPM P-R Int : 162 ms QRS Dur : 084 ms QT Int : 416 ms P-R-T Axes : 068 065 065 degrees QTc Int : 416 ms Normal sinus rhythm Nonspecific ST and T wave abnormality Abnormal ECG When compared with ECG of 10-FEB-2021 12:53, No significant change was found Confirmed by Damir Montiel ([id number]) on 07/22/2023 3:06:16 PM Referred By: REFERRED SELF Confirmed By:Damir Montiel
[2023-07-22] MEDS: ALBUT/IPRATROP 3MG/0.5MG NEB 3 ML VIAL NEB SCH ×2 (17:57→20:06)
[2023-07-23 07:12] LABS: Hemoglobin 15.4 g/dl (12.0-16.0); Mean Corpuscular Hemoglobin 29.1 pg (25.0-34.0); Mean Corpuscular Hgb Conc 31.4 g/dL (32.0-36.0); Mean Corpuscular Volume 92.6 fL (80.0-100.0); Mean Platelet Volume 9.1 fL (9.4-12.4); Platelet Count 154 K/uL (130-400); RDW Coefficient of Variation 13.9 % (11.5-14.5); RDW Standard Deviation 47.8 fL (36.4-46.3); Red Blood Count 5.29 M/uL (4.20-5.40); White Blood Count 3.84 K/ul (4.8-10.8)
[2023-07-23] MEDS: ALBUT/IPRATROP 3MG/0.5MG NEB 3 ML VIAL NEB SCH ×2 (07:28→11:18)
--- NOTE | 2023-07-23 07:36 | Hospitalist Progress Note ---
Date of Service July 23, 2023 Assessment & Plan (1) Acute hypoxemic respiratory failure: Plan: Secondary to influenza illness Medical telemetry Supplemental O2 -> currently pt is on RA, weaned off oxygen cont. Tamiflu duonebs Hypertensive crisis secondary to above - Analgesia, titrate home BP meds - cont. home amlodipine, lisinopril, metoprolol - monitor BP, currently BP at goal Hyperlipidemia, on statin Rx , cont. Hyperthyroidism, off maintenance medications for years now Ongoing tobacco abuse, Nicotine patch as needed DVT prophylaxis. Lovenox subcu Full code Admission and Anticipated Discharge Date Admission Date: July 21, 2023 Subjective Pt seen in follow up of shortness of breath, hypoxia, + Flu Lying in bed in no acute distress, currently on RA feeling much better overall and inquiring about going home Currently no fever, chills, chest pain, shortness of breath. No abd. pain, n/v Review of Systems Review of Systems: All systems reviewed & are unremarkable except as noted in Subjective Physical Exam Physical Exam: GENERAL: obese F in NAD, on RA SKIN: Normal color, warm HEENT: NC/AT, EOMI NECK : Supple CHEST : CTAB HEART : RRR, no obvious murmurs ABDOMEN: Some distention, nontender, obese, + bowel sounds EXTREMITIES : No LE edema, moves extremities NEUROLOGIC : awake, alert, oriented, answers appropriately, no facial asymmetry, moves extremities Results & Data Results & Data Vital Signs (Past 12 Hours) Vital Signs Temp Pulse Pulse Resp BP BP Pulse Ox 07/23/23 07:28 56 L 16 98 07/23/23 03:33 36.8 C 56 L 18 125/76 95 07/22/23 23:00 36.9 C 59 L 18 116/73 94 07/22/23 22:00 61 07/22/23 20:30 07/22/23 20:06 53 L 18 96 O2 Del Method O2 Flow Rate 07/23/23 07:28 Nasal Cannula 2 07/23/23 03:33 Nasal Cannula 2 07/22/23 23:00 Nasal Cannula 2 07/22/23 22:00 07/22/23 20:30 Nasal Cannula 2 07/22/23 20:06 Nasal Cannula 2 Laboratory Results 07/23/23 Range/Units 06:19 WBC 3.84 L (4.8-10.8) K/ul RBC 5.29 (4.20-5.40) M/uL Hgb 15.4 (12.0-16.0) g/dl Hct 49.0 H (37.0-47.0) % MCV 92.6 (80.0-100.0) fL MCH 29.1 (25.0-34.0) pg MCHC 31.4 L (32.0-36.0) g/dL RDW Std Deviation 47.8 H (36.4-46.3) fL RDW Coeff of Angela 13.9 (11.5-14.5) % Plt Count 154 (130-400) K/uL MPV 9.1 L (9.4-12.4) fL Sodium 141 (136-145) mmol/L Potassium 4.1 (3.5-5.1) mmol/L Chloride 104 (98-107) mmol/L Carbon Dioxide 31 (21-32) mmol/L Anion Gap 6 (3-11) BUN 15 (6-23) mg/dl Creatinine 0.65 (0.6-1.2) mg/dl Est Cr Clr Drug Dosing 109.6 ml/min Est GFR ( Amer) 114.2 ml/min Est GFR (Non-Af Amer) 98.6 ml/min BUN/Creatinine Ratio 23.1 H (10-20) Glucose 94 (70-99(Fasting)) mg/dl Calcium 9.5 (8.6-10.3) mg/dl Phosphorus 4.4 (2.5-4.9) mg/dl Magnesium 2.2 (1.7-2.4) mg/dl Medications Administered Current Inpatient Medications Acetaminophen (Acetaminophen 325 Mg Tab) 650 mg PO QID PRN PRN Reason: pain/fever Stop: 08/20/23 22:23 Last Admin: 07/22/23 11:15 Dose: 650 mg Albuterol (Albut/Ipratrop 3mg/0.5mg Neb 3 Ml Vial) 3 ml NEB QIDR [facility]; Protocol Stop: 08/21/23 16:34 Last Admin: 07/23/23 07:28 Dose: 3 ml Amlodipine Besylate (Amlodipine Besylate 5 Mg Tab) 5 mg PO QAM [facility] Stop: 08/21/23 08:59 Last Admin: 07/22/23 09:52 Dose: 5 mg Atorvastatin Calcium (Atorvastatin 20 Mg Tab) 20 mg PO QAM [facility] Stop: 08/21/23 08:59 Last Admin: 07/22/23 09:53 Dose: 20 mg Promethazine HCl 12.5 mg/ (Sodium Chloride) 50.5 mls @ 202 mls/hr IV Q6H PRN PRN Reason: Nausea And Vomiting Stop: 08/20/23 21:10 Lisinopril (L[facility]opril 20 Mg Tab) [facility] [place] Stop: 08/21/23 08:59 Last Admin: 07/22/23 09:53 Dose: 20 mg Lorazepam (Lorazepam 0.5 Mg Tab) 0.5 mg PO TID PRN PRN Reason: Anxiety Stop: 08/20/23 22:23 Metoprolol Tartrate (Metoprolol Tartrate 50 Mg Tab) 50 mg PO BID [facility] Stop: 08/21/23 08:59 Last Admin: 07/22/23 20:29 Dose: Not Given Oseltamivir Phosphate (Oseltamivir Phosphate 75 Mg Cap) 75 mg PO BID [facility]; Protocol Stop: 07/26/23 20:59 Last Admin: 07/22/23 20:28 Dose: 75 mg Pantoprazole Sodium (Pantoprazole 40 Mg Tab) 40 mg PO HS PRN PRN Reason: Acid Reflux Stop: 08/20/23 23:25
[2023-07-23 07:49] LABS: BUN Creatinine Ratio 23.1 (10-20); Calcium 9.5 mg/dl (8.6-10.3); Creatinine Clr Calc Pharmacy 109.6 ml/min; Est GFR (African American) 114.2 ml/min; Est GFR (Non-African American) 98.6 ml/min; Magnesium 2.2 mg/dl (1.7-2.4); Phosphorus 4.4 mg/dl (2.5-4.9); Potassium 4.1 mmol/L (3.5-5.1)
[2023-07-23] MEDS: lisinopril 20 MG TAB PO SCH (07:54)
[2023-07-23] MEDS: amLODIPine BESYLATE 5 MG TAB PO SCH (07:54)
[2023-07-23] MEDS: METOPROLOL TARTRATE 50 MG TAB PO SCH (07:54)
[2023-07-23] MEDS: ATORVASTATIN 20 MG TAB PO SCH (07:55)
[2023-07-23] MEDS: OSELTAMIVIR PHOSPHATE 75 MG CAP PO SCH (08:06)
--- NOTE | 2023-07-23 13:22 | Discharge Summary ---
Date of Service July 23, 2023 Admission HPI Per Admitting Provider History obtained from patient and records. Medical history significant for hypertension, hyperlipidemia, GERD, hyperthyroidism, ongoing tobacco abuse. 2 days history of cough symptoms productive of clear sputum associated with shortness of breath mostly on exertion. Chest pain from coughing. Persistent frontal headache symptoms not related to coughing spell as per patient. Possible sick contacts at work. Patient completed COVID-19 vaccination, has received seasonal flu vaccine last year. O2 sats 80s on pulse ox at home. Medical History as above Surgical History : Tonsillectomy/adenectomy, BTL, wrist surgery Family History : Colon cancer, breast cancer, COPD, DM, heart disease, lung cancer Personal/Social history : 1 pack daily, occasional EtOH intake, [employer] employee Admission Exam Per Admitting Provider GENERAL: Comfortable, pleasant, morbidly obese, no respiratory distress SKIN: Normal color, warm HEENT: Bespectacled, [place] palpebral conjunctivae, no ptosis, dry buccal mucosa NECK : Supple, short neck, no tenderness CHEST : Decreased breath sounds, no tenderness HEART : RRR, no obvious murmurs ABDOMEN: Some distention, nontender EXTREMITIES : No LE swelling/tenderness, no other conspicuous deformities noted NEUROLOGIC : Coherent, no facial asymmetry, no other gross focality Principal Diagnosis Influenza infection and hypoxia Discharge Exam GENERAL: obese F in NAD, on RA SKIN: Normal color, warm HEENT: NC/AT, EOMI NECK : Supple CHEST : CTAB HEART : RRR, no obvious murmurs ABDOMEN: Some distention, nontender, obese, + bowel sounds EXTREMITIES : No LE edema, moves extremities NEUROLOGIC : awake, alert, oriented, answers appropriately, no facial asymmetry, moves extremities Discharge Data Allergies Allergy/AdvReac Type Severity Reaction Status Date / Time No Known Allergies Allergy Verified 07/21/23 19:47 Consultations 07/21/23 21:34 ED Decision to Admit Stat Ordered Studies 07/21/23 21:03 CT head/brain wo con Stat FINDINGS: Brain: Unremarkable. No hemorrhage. No edema. Ventricles: Unremarkable. No ventriculomegaly. Bones/joints: Unremarkable. No acute fracture. Soft tissues: Unremarkable. Sinuses: Unremarkable as visualized. Mastoid air cells: Unremarkable as visualized. No mastoid effusion. IMPRESSION: No intracranial hemorrhage or other acute intracranial abnormality identified. Hospital Course (1) Acute hypoxemic respiratory failure: Secondary to influenza illness CXR -negative Medical telemetry Supplemental O2 -> currently pt is on RA, weaned off oxygen cont. Tamiflu duonebs prn Feeling much better, off oxygen, plan to DC home and follow up with pcp. Hypertensive crisis secondary to above - Analgesia, titrate home BP meds - cont. home amlodipine, lisinopril, metoprolol - monitor BP, currently BP at goal Hyperlipidemia, on statin Rx , cont. Hyperthyroidism, off maintenance medications for years now Ongoing tobacco abuse, Nicotine patch as needed Total Time Total Time Spent Total Time Spent (In Minutes): 40 Discharge Plan Discharge Items Patient Disposition: Home - Self-Care Reason For Visit: RESP FAILURE, FLU Discharge Diagnosis: Influenza infection and hypoxia Activity: Per Instructions section Non-emergency contact: Primary Care Provider Call non-emergency contact if: you have any medication questions and your symptoms worsen Follow-up/Referrals: Robbin Nguyen MD [Primary Care Provider] - (Date & Time 07/28/2023 10:00 AM Provider Farheen Armenta MD Department [facility] ) Diet: Heart Healthy Addtl Attending Provider Instructions: Follow up with your primary care doctor within 1 week. The appointment was scheduled for you for July 28. Finish the treatment with tamiflu as prescribed. Recommend using mucinex/ guaifenesin for next couple of days as well. Pending Studies at Discharge: No Stand-Alone Forms: My [facility], Smoking Cessation Medications and DC Order Prescriptions: New oseltamivir [Tamiflu] 75 mg Capsule 75 mg PO BID 4 Days Qty: 8 0RF albuterol sulfate 90 mcg/actuation HFA aerosol inhaler 1 inh inhalation Q6H PRN (Reason: shortness of breath or wheezing) Qty: 6.7 0RF Continued atorvastatin 20 mg Tablet 20 mg PO QAM lorazepam 0.5 mg Tablet 0.5 mg PO TID PRN (Reason: Anxiety) omeprazole magnesium [Prilosec OTC] 20 mg Tablet,Delayed Release (Dr/Ec) 20 mg PO HS PRN (Reason: Acid Reflux) metoprolol tartrate 50 mg tablet 50 mg PO BID Qty: 60 0RF meloxicam 15 mg tablet 15 mg PO DAILY lisinopril 20 mg tablet 20 mg PO QAM amlodipine 5 mg tablet 5 mg PO QAM acetaminophen [Tylenol Extra Strength] 500 mg Tablet 1,000 mg PO DIRECTED PRN (Reason: Pain) Discharge Orders: Discharge Order (Routine); Ordered 07/23/23 Ordered By: Irineo Jefferson Admission Data Admit Date/Time: 07/21/23 22:23 Attending Provider: Irineo Jefferson Admit Provider: Jose Moore Primary Care Provider: Robbin Nguyen Other Providers: Jose Moore
== END 2023-07-23 14:23 | disposition home or self-care (01) | DRG 193 ==
LOC: ED 18:27 → 2N 22:23

== ENCOUNTER 2024-07-20 09:33 | Inpatient (IN) ==
--- NOTE | 2024-07-20 10:22 | Emergency Department Note ---
Impression & Plan Acute dyspnea, Acute hypoxemic respiratory failure, Coronavirus infection ED Provider Note HISTORY OF PRESENT ILLNESS: Patient is a 58-year-old female presenting with cough and shortness of breath. Patient reports that symptoms started 5 days ago. States that her cough was initially quite productive of a green/yellow sputum. States she has been using [id number] Mucinex. She denies any notable fevers. Reports she was around a coworker a week ago who had influenza A. She denies any chest pain, but states her chest feels tight and it sometimes hard to breathe. Denies any DVT or PE history. She is not on any anticoagulation. She denies any abdominal pain, nausea or vomiting. ROS: as above PHYSICAL EXAM: Constitutional: Patient appears in no acute distress. HENT: Head: Normocephalic and atraumatic. Eyes: EOMI, PERRL Mouth/Throat: Mucous membranes moist. Neck: Trachea midline. Neck supple. Cardiovascular: Bradycardic with regular rhythm. No murmurs, rubs or gallops. Intact distal pulses. Pulmonary/Chest: No respiratory distress. Breath sounds clear and equal bilaterally. Expiratory wheezes in the right lung field. Abdominal: Abdomen soft, no tenderness, rebound or guarding. Musculoskeletal: No edema, tenderness or deformity noted. Skin: Warm and dry. No rash, erythema, pallor or cyanosis Psychiatric: Appropriate mood and affect for situation. Neurological: Alert and keenly responsive. CN II-XII grossly intact, moving all extremities equally and fully. MDM: - Vitals signs showed hypertension and bradycardic. - History obtained via patient. History as above. - Chronic conditions affecting care: HTN; HLD - Differential diagnoses include, but are not limited to: Congestive heart failure; acute coronary syndrome; COPD/asthma exacerbation; pulmonary edema; pulmonary embolism; pneumonia; pneumothorax; viral syndrome - Order placed for continuous cardiac monitoring. At this time, monitor showed rate of 67 bpm with normal sinus rhythm, per my interpretation. - External medical records reviewed. Discharge summary dated 07/23/2023 was reviewed. Patient was admitted at that time for influenza infection and hypoxia. - EKG interpreted by myself showed normal sinus rhythm. Rate 56 bpm. QT 430. No acute ischemic changes. - Laboratory workup interpreted by myself showed normal WBC; normal PT/INR; normal hemoglobin; stable electrolytes; normal troponin; normal BNP - CXR negative for pneumonia, per my interpretation - Patient was given a DuoNeb treatment in the emergency department for her wheezing. On reassessment she is feeling improved. - Viral respiratory panel positive for coronavirus type OC43 - Patient ambulated to bathroom in an attempt to do an ambulatory pulse ox. However, patient desaturated to the upper 80s on room air. She was still hypoxic when she got back to bed and was saturating 89 to 91%. She was placed on 2 L nasal cannula. - UA negative for infection - 60 mg IV solumedrol and 20 mg IV pepcid ordered - Given patient's new oxygen requirement and her significant dyspnea after short ambulation, will admit to hospitalist service. - Discussion was had with director case about patient's case and need for admission - Hospitalist consulted for admission - Patient admitted to [facility] hospitalist service for further evaluation and management. ASSESSMENT AND PLAN: Diagnosis: Acute dyspnea; coronavirus infection; acute hypoxemic respiratory failure Plan: admit Past Med/Surg History Problem List (Updated 07/20/24 @ 12:01 by Kim Vo MD) Coronavirus infection (Acute) Acute hypoxemic respiratory failure (Acute) Acute dyspnea (Acute) Acute hypoxemic respiratory failure Hypoxia (Acute) Influenza A (Acute) Encounter for pre-operative examination Hypertension Medical History (Updated 07/20/24 @ 12:01 by Kim Vo MD) Osteoarthritis GERD (gastroesophageal reflux disease) Graves disease hx of, no longer has--had radioactive iodine pills Depression Anxiety Hypertension Hyperlipidemia Bronchitis hx of in jul 2018--inhaler prn Surgical History History of bilateral tubal ligation History of surgery on right wrist bone spur removed History of colonoscopy History of esophagogastroduodenoscopy (EGD) History of oral surgery permanent implants History of wisdom tooth extraction History of tonsillectomy and adenoidectomy Family History Sister Family history of diabetes mellitus Other No family history of adverse response to anesthesia Social History Smoking Status: Current every day smoker Tobacco Type: Cigarettes Cigarettes Per Day: 20; Second Hand Exposure: No; Do You Dip or Chew Tobacco: No; Hx Alcohol Use: No Hx Substance Use: No Preferred Language: [place] Communication Ability: Effective [employer] Required: No Beliefs That Will Affect Care: None Current Living Situation: Alone Current Living Situation Comment: Lives with Feels Safe at Home: Yes Assistive Devices: None Allergies Allergies Allergy/AdvReac Type Severity Reaction Status Date / Time No Known Allergies Allergy Verified 07/21/23 19:47 Home Meds Home Medications Medication Instructions Recorded Confirmed atorvastatin 20 mg tablet 20 mg PO QAM 11/12/18 07/21/23 lorazepam 0.5 mg tablet 0.5 mg PO TID PRN Anxiety 11/12/18 07/21/23 omeprazole magnesium 20 mg 20 mg PO HS PRN Acid Reflux 11/12/18 07/21/23 tablet,delayed release (Prilosec OTC) meloxicam 15 mg tablet 15 mg PO DAILY 06/14/21 07/21/23 acetaminophen 500 mg tablet 1,000 mg PO DIRECTED PRN Pain 07/21/23 07/21/23 (Tylenol Extra Strength) amlodipine 5 mg tablet 5 mg PO QAM 07/21/23 07/21/23 lisinopril 20 mg tablet 20 mg PO QAM 07/21/23 07/21/23 Previous Rx's Medication Instructions Recorded metoprolol tartrate 50 mg tablet 50 mg PO BID #60 tabs 03/30/19 albuterol sulfate 90 mcg/actuation 1 inh inhalation Q6H PRN shortness 07/23/23 aerosol inhaler of breath or wheezing #6.7 grams Results & Data (ED) Vital Signs Vital Signs - 24 hr 07/20/24 09:52 07/20/24 10:05 07/20/24 10:05 Temperature 36.5 C Temperature Source Temporal Artery Scan Pulse Rate 54 L Pulse Rate [Apical] Pulse Rate [Recovery] Respiratory Rate 19 Respiratory Rate [Recovery] Respiratory Effort / Characteristics Non-Labored Spontaneous Respiratory Depth Normal Blood Pressure 152/86 H Blood Pressure [Left Arm] Blood Pressure Mean 108 Blood Pressure Mean [Left Arm] Blood Pressure Position Sitting Pulse Oximetry 91 Pulse Oximetry [Recovery] Oxygen Delivery Method Room Air Room Air Room Air Sepsis Recent Fever Within 48 Hours No Sepsis New/Unexplained Change in Mental Status No Sepsis Action Taken by Nursing No Action Required 07/20/24 10:05 07/20/24 10:05 07/20/24 10:13 Temperature Temperature Source Pulse Rate 52 L Pulse Rate [Apical] 57 L Pulse Rate [Recovery] Respiratory Rate 22 Respiratory Rate [Recovery] Respiratory Effort / Characteristics Non-Labored Respiratory Depth Normal Blood Pressure Blood Pressure [Left Arm] 149/96 H Blood Pressure Mean Blood Pressure Mean [Left Arm] 113 Blood Pressure Position Pulse Oximetry 92 92 Pulse Oximetry [Recovery] Oxygen Delivery Method Room Air Room Air Sepsis Recent Fever Within 48 Hours Sepsis New/Unexplained Change in Mental Status Sepsis Action Taken by Nursing 07/20/24 11:11 07/20/24 11:12 07/20/24 11:40 Temperature Temperature Source Pulse Rate Pulse Rate [Apical] 51 L Pulse Rate [Recovery] 67 Respiratory Rate 22 Respiratory Rate [Recovery] 26 H Respiratory Effort / Characteristics Respiratory Depth Blood Pressure Blood Pressure [Left Arm] 107/66 Blood Pressure Mean Blood Pressure Mean [Left Arm] 79 Blood Pressure Position Pulse Oximetry 90 Pulse Oximetry [Recovery] 88 L Oxygen Delivery Method Room Air Room Air Sepsis Recent Fever Within 48 Hours Sepsis New/Unexplained Change in Mental Status Sepsis Action Taken by Nursing Laboratory Data 07/20/24 10:09 07/20/24 10:09 Lab Results 07/20/24 07/20/24 Range/Units 10:09 11:37 WBC 5.70 (4.8-10.8) K/ul RBC 5.66 H (4.20-5.40) M/uL Hgb 16.9 H (12.0-16.0) g/dl Hct 51.2 H (37.0-47.0) % MCV 90.5 (80.0-100.0) fL MCH 29.9 (25.0-34.0) pg MCHC 33.0 (32.0-36.0) g/dL RDW Std Deviation 43.7 (36.4-46.3) fL RDW Coeff of Angela 13.2 (11.5-14.5) % Plt Count 167 (130-400) K/uL MPV 9.0 L (9.4-12.4) fL Immature Gran % (Auto) 0.4 % Neut % (Auto) 62.2 % Lymph % (Auto) 21.1 % Mellette % (Auto) 8.4 % Eos % (Auto) 6.8 % Baso % (Auto) 1.1 % Neut # (Auto) 3.55 (1.40-6.50) K/uL Lymph # (Auto) 1.20 (1.20-3.40) K/uL Mellette # (Auto) 0.48 (0.11-0.59) K/uL Eos # (Auto) 0.39 (0.00-0.50) K/uL Baso # (Auto) 0.06 (0.00-0.20) K/uL Immature Gran # (Auto) 0.02 (0.01-0.20) K/uL PT 10.5 (9.0-12.0) Seconds INR 1.0 (0.9-1.1) Sodium 138 (136-145) mmol/L Potassium 4.4 (3.5-5.1) mmol/L Chloride 101 (98-107) mmol/L Carbon Dioxide 30 (21-32) mmol/L Anion Gap 7 (3-11) BUN 9 (6-23) mg/dl Creatinine 0.77 (0.6-1.2) mg/dl Est Cr Clr Drug Dosing 93.4 ml/min eGFR 89.92 BUN/Creatinine Ratio 11.7 (10-20) Glucose 125 H (70-99(Fasting)) mg/dl Calcium 9.9 (8.6-10.3) mg/dl Magnesium 2.0 (1.7-2.4) mg/dl Total Bilirubin 0.6 (0.2-1.0) mg/dl AST 23 (13-39) U/L ALT 34 (7-52) U/L Alkaline Phosphatase 103 (34-104) U/L Troponin I High Sens 5.4 (0-14) pg/ml B-Natriuretic Peptide 12 (0-100) pg/ml Total Protein 7.9 (6.0-8.3) gm/dl Albumin 4.7 (3.4-5.0) gm/dl Globulin 3.2 (2.5-4.0) gm/dl Albumin/Globulin Ratio 1.5 (0.9-2) Urine Color Yellow Urine Appearance Clear (Clear) Urine pH 6.0 (4.5-7.5) Ur Specific Alliance 1.011 (1.000-1.030) Urine Protein Negative (Negative) Urine Glucose (UA) Negative (Negative) Urine Ketones Negative (Negative) Urine Blood 1+ H (Negative) Urine Nitrite Negative (Negative) Urine Bilirubin Negative (Negative) Urine Urobilinogen Negative (Negative) Ur Leukocyte Esterase Negative (Negative) Urine WBC (Auto) 0-5 (0-5) /hpf Urine RBC (Auto) 6-10 H (0-2) /hpf U Hyaline Cast (Auto) 0-2 (0-2) /lpf U Epithel Cells (Auto) 3-5 H (0-2) /hpf Urine Bacteria (Auto) None Seen (None Seen) Adenovirus (PCR) Not Detected (NotDetected) B. pertussis DNA (PCR) Not Detected (NotDetected) B.parapertussis DNA PCR Not Detected (NotDetected) C. pneumoniae DNA (PCR) Not Detected (NotDetected) Coronavirus OC43 (PCR) DETECTED A (NotDetected) Coronavirus HKU1 (PCR) Not Detected (NotDetected) Coronavirus 229E (PCR) Not Detected (NotDetected) SARS-CoV-2 (PCR) Not Detected (NotDetected) Coronavirus NL63 (PCR) Not Detected (NotDetected) Human Metapneumovir PCR Not Detected (NotDetected) Influenza Type A (PCR) Not Detected (NotDetected) Influenza Type B (PCR) Not Detected (NotDetected) M. pneumoniae (PCR) Not Detected (NotDetected) Parainfluenza 1 (PCR) Not Detected (NotDetected) Parainfluenza 2 (PCR) Not Detected (NotDetected) Parainfluenza 3 (PCR) Not Detected (NotDetected) Parainfluenza 4 (PCR) Not Detected (NotDetected) RSV (PCR) Not Detected (NotDetected) Entero/Rhino (PCR) Not Detected (NotDetected) Administered Medications Discontinued Medications Albuterol (Albut/Ipratrop 3mg/0.5mg Neb 3 Ml Vial) 3 ml NEB NOW STA; Protocol Stop: 07/20/24 10:23 Last Admin: 07/20/24 10:34 Dose: 3 ml Documented By: MMG Imaging Data Radiologist's Impression: Chest X-Ray 07/20/24 10:02 XR chest 1V portable CLINICAL HISTORY: Dyspnea COMPARISON STUDY: 07/21/2023 FINDINGS: Heart size and pulmonary vasculature are normal. No effusion, consolidation, or pneumothorax. IMPRESSION: No acute findings. ACT 112: Negative or not required by law. Electronically signed by: Ba Vinson M.D. 07/20/2024 10:25 AM Discharge Plan Visit Data Chief Complaint: Shortness of Breath/Dyspnea Stated Complaint: SOB ED Provider: Kim Vo Discharge Problem: Acute dyspnea, Acute hypoxemic respiratory failure, Coronavirus infection Forms Stand Alone Forms: My [facility] Prescriptions Prescriptions: No Action atorvastatin 20 mg Tablet 20 mg PO QAM lorazepam 0.5 mg Tablet 0.5 mg PO TID PRN (Reason: Anxiety) omeprazole magnesium [Prilosec OTC] 20 mg Tablet,Delayed Release (Dr/Ec) 20 mg PO HS PRN (Reason: Acid Reflux) metoprolol tartrate 50 mg tablet 50 mg PO BID Qty: 60 0RF meloxicam 15 mg tablet 15 mg PO DAILY lisinopril 20 mg tablet 20 mg PO QAM amlodipine 5 mg tablet 5 mg PO QAM acetaminophen [Tylenol Extra Strength] 500 mg Tablet 1,000 mg PO DIRECTED PRN (Reason: Pain) albuterol sulfate 90 mcg/actuation HFA aerosol inhaler 1 inh inhalation Q6H PRN (Reason: shortness of breath or wheezing) Qty: 6.7 0RF Referrals Referrals: Robbin Nguyen MD [Primary Care Provider] -
--- NOTE | 2024-07-20 10:26 | XRay Report ---
XR chest 1V portable CLINICAL HISTORY: Dyspnea COMPARISON STUDY: 07/21/2023 FINDINGS: Heart size and pulmonary vasculature are normal. No effusion, consolidation, or pneumothora x. IMPRESSION: No acute findings. ACT 112: Negative or not required by law. Electronically signed by: Ba Vinson M.D. 07/20/2024 10:25 AM
[2024-07-20] MEDS: ALBUT/IPRATROP 3MG/0.5MG NEB 3 ML VIAL NEB STA (10:34)
[2024-07-20 10:44] LABS: Basophils # (auto) 0.06 K/uL (0.00-0.20); Basophils % (auto) 1.1 %; Eosinophils # (auto) 0.39 K/uL (0.00-0.50); Eosinophils % (auto) 6.8 %; Hematocrit (blood only) 51.2 % (37.0-47.0); Hemoglobin 16.9 g/dl (12.0-16.0); Immature Granulocytes # (auto) 0.02 K/uL (0.01-0.20); Immature Granulocytes % (auto) 0.4 %; Lymphocytes % (auto) 21.1 %; Mean Corpuscular Hemoglobin 29.9 pg (25.0-34.0); Mean Corpuscular Volume 90.5 fL (80.0-100.0); Monocytes # (auto) 0.48 K/uL (0.11-0.59); Monocytes % (auto) 8.4 %; Neutrophils # (auto) 3.55 K/uL (1.40-6.50); Neutrophils % (auto) 62.2 %; Platelet Count 167 K/uL (130-400); RDW Coefficient of Variation 13.2 % (11.5-14.5); RDW Standard Deviation 43.7 fL (36.4-46.3); Red Blood Count 5.66 M/uL (4.20-5.40)
[2024-07-20 10:59] LABS: Albumin Globulin Ratio 1.5 (0.9-2); Albumin Level 4.7 gm/dl (3.4-5.0); BUN Creatinine Ratio 11.7 (10-20); Bilirubin,Total 0.6 mg/dl (0.2-1.0); Calcium 9.9 mg/dl (8.6-10.3); Creatinine Clr Calc Pharmacy 93.4 ml/min; Globulin 3.2 gm/dl (2.5-4.0); Potassium 4.4 mmol/L (3.5-5.1); Total Protein 7.9 gm/dl (6.0-8.3)
[2024-07-20 11:05] LABS: Troponin I High Sensitivity 5.4 pg/ml (0-14)
[2024-07-20 11:17] LABS: Prothrombin Time 10.5 Seconds (9.0-12.0)
[2024-07-20 11:19] LABS: Adenovirus PCR Not Detected (NotDetected); Bordetella parapertussis PCR Not Detected (NotDetected); Bordetella pertussis PCR Not Detected (NotDetected); Chlamydia pneumoniae PCR Not Detected (NotDetected); Coronavirus 229E PCR Not Detected (NotDetected); Coronavirus CoV-2 (COVID19)PCR Not Detected (NotDetected); Coronavirus HKU1 PCR Not Detected (NotDetected); Coronavirus NL63 PCR Not Detected (NotDetected); Coronavirus OC43PCR DETECTED (NotDetected); Human Metapneumovirus PCR Not Detected (NotDetected); Influenza A PCR Not Detected (NotDetected); Influenza B PCR Not Detected (NotDetected); Mycoplasma pneumoniae PCR Not Detected (NotDetected); Parainfluenza Virus 1 PCR Not Detected (NotDetected); Parainfluenza Virus 2 PCR Not Detected (NotDetected); Parainfluenza Virus 3 PCR Not Detected (NotDetected); Parainfluenza Virus 4 PCR Not Detected (NotDetected); Respiratory Syncytial VirusPCR Not Detected (NotDetected); Rhinovirus/Enterovirus PCR Not Detected (NotDetected)
--- NOTE | 2024-07-20 11:57 | Electrocardiogram Report ---
Test Reason : Blood Pressure : */* mmHG Vent. Rate : 56 BPM Atrial Rate : 56 BPM P-R Int : 156 ms QRS Dur : 86 ms QT Int : 430 ms P-R-T Axes : 58 63 57 degrees QTcB Int : 414 ms Sinus bradycardia with Premature ventricular complexes Otherwise normal ECG When compared with ECG of 21-Jul-2023 19:13, Premature ventricular complexes now present Confirmed by Damir Montiel ([id number]) on 07/20/2024 11:57:04 AM Referred By: Confirmed By: Damir Montiel
[2024-07-20 11:58] LABS: Appearance Urine Clear (Clear); Bacteria Urine Automated None Seen (None Seen); Bilirubin Urine Negative (Negative); Blood Urine 1+ (Negative); Cast Urine Automated 0-2 /lpf (0-2); Color Urine Yellow; Glucose Urine UA Negative (Negative); Ketones Urine Negative (Negative); Leukocyte Esterase Urine Negative (Negative); Nitrite Urine Negative (Negative); Protein Urine Negative (Negative); Specific Gravity Urine 1.011 (1.000-1.030); Urobilinogen Urine Negative (Negative); WBC Urine Automated 0-5 /hpf (0-5)
[2024-07-20] MEDS: methylPREDNISolone 125 MG/2 ML VIAL IV STA (12:05)
[2024-07-20] MEDS: FAMOTIDINE 20MG IV PUSH 20 MG/5 ML SYR IV STA (12:05)
[2024-07-20] MEDS ORDERED: LORazepam 0.5 MG TAB PO PRN (12:17)
--- NOTE | 2024-07-20 12:22 | History & Physical Report ---
Date of Service July 20, 2024 Assessment & Plan (1) Coronavirus infection: (2) Acute hypoxemic respiratory failure: (3) Acute dyspnea: (4) Influenza A: (5) Hypertension: (6) Osteoarthritis: (7) GERD (gastroesophageal reflux disease): (8) Hypertension: (9) Hyperlipidemia: Plan The patient is a 58-year-old female with a past medical history of HTN, HLD, GERD, hypothyroidism, DM2, tobacco use who presents to the ED on 07/20/2024 with complaints of cough and shortness of breath over the past 5 days. Found to be positive for coronavirus 0C43 Acute hypoxic respiratory failure Coronavirus 0C43 Suspected bronchitis and underlying lung disease Chest x-ray without any infiltrates/acute changes, check Pro-Ranjith Remains on 2 L of oxygen, wean as able, ambulatory pulse ox prior to DC Supportive care, DuoNebs, IV Solu-Medrol twice a day Hospitalized last year with influenza A, suspect underlying lung disease Follow-up with pulmonology after discharge for PFTs to rule out COPD Hx depression/anxiety: Continue fluoxetine/lorazepam as needed Hx HTN/HLD: BP soft, continue lisinopril and amlodipine tomorrow -Bradycardia also noted, will hold metoprolol for now. Hx hyperthyroidism: Remains off medications, follow-up TSH outpatient A total of 60 minutes was spent on chart review/facilitating plan of care/reviewing diagnostic data/discussion with consultants Full code DVT prophylaxis: Lovenox History of Present Illness Chief Complaint: Shortness of breath, cough Primary Care Provider: Robbin Nguyen MD The patient is a 58-year-old female with a past medical history of HTN, hyperthyroidism, HLD, GERD, prediabetes, tobacco use who presents to the ED on 07/20/2024 with complaints of a cough and shortness of breath over the past 5 day s. Patient also reported some chest tightness associated with the cough and respiratory symptoms. Also reported some wheezing in the middle of the night. Reports a runny nose, Denies sore throat and congestion. Reports her coworker was sick about 1 week ago and had influenza A. Denies fevers/chills. Denies n/v/d or abdominal pain. Denies recent travel. Pt reports smoking 1/2 ppd, cut down from last year Reports drinking 3-4 glasses of wine a few times a week. On arrival to the ED, chest x-ray is negative for any acute findings Labs are fairly unremarkable. Respiratory panel positive for coronavirus 0C43 An ambulatory pulse ox was completed and the patient dropped into the mid 80s. She remains on 2 L of oxygen now. The patient will be admitted for acute hypoxic respiratory failure and management of bronchitis Allergies Allergy/AdvReac Type Severity Reaction Status Date / Time No Known Allergies Allergy Verified 07/21/23 19:47 Home Medications Medication Instructions Recorded Confirmed Type atorvastatin 20 mg tablet 20 mg PO QAM 11/12/18 07/20/24 History lorazepam 0.5 mg tablet 0.5 mg PO TID PRN Anxiety 11/12/18 07/20/24 History omeprazole magnesium 20 mg 20 mg PO HS PRN Acid Reflux 11/12/18 07/20/24 History tablet,delayed release (Prilosec OTC) meloxicam 15 mg tablet 15 mg PO QAM 06/14/21 07/20/24 History acetaminophen 500 mg tablet 1,000 mg PO DIRECTED PRN Pain 07/21/23 07/20/24 History (Tylenol Extra Strength) amlodipine 5 mg tablet 5 mg PO QAM 07/21/23 07/20/24 History lisinopril 20 mg tablet 20 mg PO QAM 07/21/23 07/20/24 History albuterol sulfate 90 mcg/actuation 1 inh inhalation Q6H PRN shortness 07/23/23 07/20/24 Rx aerosol inhaler of breath or wheezing #6.7 grams fluoxetine 10 mg capsule 10 mg PO QAM 07/20/24 07/20/24 History metformin 500 mg tablet,extended 1,000 mg PO QAM 07/20/24 07/20/24 History release 24 hr metoprolol tartrate 50 mg tablet 50 mg PO QAM 07/20/24 07/20/24 History Past Med/Surg History Problem List (Updated 07/20/24 @ 12:01 by Kim Vo MD) Coronavirus infection (Acute) Acute hypoxemic respiratory failure (Acute) Acute dyspnea (Acute) Acute hypoxemic respiratory failure Hypoxia (Acute) Influenza A (Acute) Encounter for pre-operative examination Hypertension Medical History (Updated 07/20/24 @ 12:01 by Kim Vo MD) Osteoarthritis GERD (gastroesophageal reflux disease) Graves disease hx of, no longer has--had radioactive iodine pills Depression Anxiety Hypertension Hyperlipidemia Bronchitis hx of in jul 2018--inhaler prn Surgical History History of bilateral tubal ligation History of surgery on right wrist bone spur removed History of colonoscopy History of esophagogastroduodenoscopy (EGD) History of oral surgery permanent implants History of wisdom tooth extraction History of tonsillectomy and adenoidectomy Family History Sister Family history of diabetes mellitus Other No family history of adverse response to anesthesia Social History Smoking Status: Current every day smoker Tobacco Type: Cigarettes Cigarettes Per Day: 20; Second Hand Exposure: No; Do You Dip or Chew Tobacco: No; Tobacco Cessation Education Requested by Patient: Yes Hx Alcohol Use: Yes Alcohol type: wine Hx Substance Use: No Preferred Language: Armenian Communication Ability: Effective Rent And Miscellaneous Remittance Clerk Required: No Beliefs That Will Affect Care: None Current Living Situation: Alone Current Living Situation Comment: Lives with Other Information That Helps Us Care for You: No Feels Safe at Home: Yes Safety Concerns: Feels Safe At This Time Assistive Devices: Glasses Review of Systems Review of Systems: All systems reviewed & are unremarkable except as noted in HPI & below Physical Exam Constitutional: WD/WN, vitals as above Eyes: PERRL, conjunctivae normal, anicteric sclerae ENMT: external ear and nose normal, oropharynx normal Neck: trachea midline, no thyromegaly Respiratory: normal respiratory effort, lungs clear to auscultation (rhonchi in b/l lung bases ) Cardiovascular: RRR, no murmur, no edema (+1 edema, b/l le ) Gastrointestinal (Abdomen): normal bowel sounds, soft, nontender, no hepatosplenomegaly Musculoskeletal: no cyanosis or clubbing, extremities motor strength 5/5 Skin: no rashes, warm and dry Neurologic: PERRL, EOMI, accommodation nl, no face palsy, no dysarthria Psychiatric: A+Ox3, euthymic affect Lymphatic: no cervical or axillary lymphadenopathy Results & Data Results & Data Vital Signs (Past 12 Hours) Vital Signs Temp Pulse Pulse Pulse Resp Resp BP 07/20/24 11:40 67 26 H 07/20/24 11:12 07/20/24 11:11 51 L 22 07/20/24 10:13 52 L 07/20/24 10:05 07/20/24 10:05 57 L 22 07/20/24 10:05 07/20/24 10:05 07/20/24 09:52 36.5 C 54 L 19 152/86 H BP Pulse Ox Pulse Ox O2 Del Method 07/20/24 11:40 88 L Room Air 07/20/24 11:12 107/66 07/20/24 11:11 90 Room Air 07/20/24 10:13 07/20/24 10:05 92 Room Air 07/20/24 10:05 149/96 H 92 Room Air 07/20/24 10:05 Room Air 07/20/24 10:05 Room Air 07/20/24 09:52 91 Room Air Diagnostic Findings Laboratory Results WBC 5.70 K/ul (4.8-10.8) 07/20/24 10:09 RBC 5.66 M/uL (4.20-5.40) H 07/20/24 10:09 Hgb 16.9 g/dl (12.0-16.0) H 07/20/24 10:09 Hct 51.2 % (37.0-47.0) H 07/20/24 10:09 MCV 90.5 fL (80.0-100.0) 07/20/24 10:09 MCH 29.9 pg (25.0-34.0) 07/20/24 10:09 MCHC 33.0 g/dL (32.0-36.0) 07/20/24 10:09 RDW Std Deviation 43.7 fL (36.4-46.3) 07/20/24 10:09 RDW Coeff of Angela 13.2 % (11.5-14.5) 07/20/24 10:09 Plt Count 167 K/uL (130-400) 07/20/24 10:09 MPV 9.0 fL (9.4-12.4) L 07/20/24 10:09 Immature Gran % (Auto) 0.4 % 07/20/24 10:09 Neut % (Auto) 62.2 % 07/20/24 10:09 Lymph % (Auto) 21.1 % 07/20/24 10:09 Adams % (Auto) 8.4 % 07/20/24 10:09 Eos % (Auto) 6.8 % 07/20/24 10:09 Baso % (Auto) 1.1 % 07/20/24 10:09 Neut # (Auto) 3.55 K/uL (1.40-6.50) 07/20/24 10:09 Lymph # (Auto) 1.20 K/uL (1.20-3.40) 07/20/24 10:09 Adams # (Auto) 0.48 K/uL (0.11-0.59) 07/20/24 10:09 Eos # (Auto) 0.39 K/uL (0.00-0.50) 07/20/24 10:09 Baso # (Auto) 0.06 K/uL (0.00-0.20) 07/20/24 10:09 Immature Gran # (Auto) 0.02 K/uL (0.01-0.20) 07/20/24 10:09 PT 10.5 Seconds (9.0-12.0) 07/20/24 10:09 INR 1.0 (0.9-1.1) 07/20/24 10:09 Sodium 138 mmol/L (136-145) 07/20/24 10:09 Potassium 4.4 mmol/L (3.5-5.1) 07/20/24 10:09 Chloride 101 mmol/L (98-107) 07/20/24 10:09 Carbon Dioxide 30 mmol/L (21-32) 07/20/24 10:09 Anion Gap 7 (3-11) 07/20/24 10:09 BUN 9 mg/dl (6-23) 07/20/24 10:09 Creatinine 0.77 mg/dl (0.6-1.2) 07/20/24 10:09 Est Cr Clr Drug Dosing 93.4 ml/min 07/20/24 10:09 eGFR 89.92 07/20/24 10:09 BUN/Creatinine Ratio 11.7 (10-20) 07/20/24 10:09 Glucose 125 mg/dl (70-99(Fasting)) H 07/20/24 10:09 Calcium 9.9 mg/dl (8.6-10.3) 07/20/24 10:09 Magnesium 2.0 mg/dl (1.7-2.4) 07/20/24 10:09 Total Bilirubin 0.6 mg/dl (0.2-1.0) 07/20/24 10:09 AST 23 U/L (13-39) 07/20/24 10:09 ALT 34 U/L (7-52) 07/20/24 10:09 Alkaline Phosphatase 103 U/L (34-104) 07/20/24 10:09 Troponin I High Sens 5.4 pg/ml (0-14) 07/20/24 10:09 B-Natriuretic Peptide 12 pg/ml (0-100) 07/20/24 10:09 Total Protein 7.9 gm/dl (6.0-8.3) 07/20/24 10:09 Albumin 4.7 gm/dl (3.4-5.0) 07/20/24 10:09 Globulin 3.2 gm/dl (2.5-4.0) 07/20/24 10:09 Albumin/Globulin Ratio 1.5 (0.9-2) 07/20/24 10:09 Urine Color Yellow 07/20/24 11:37 Urine Appearance Clear (Clear) 07/20/24 11:37 Urine pH 6.0 (4.5-7.5) 07/20/24 11:37 Ur Specific [place] 1.011 (1.000-1.030) 07/20/24 11:37 Urine Protein Negative (Negative) 07/20/24 11:37 Urine Glucose (UA) Negative (Negative) 07/20/24 11:37 Urine Ketones Negative (Negative) 07/20/24 11:37 Urine Blood 1+ (Negative) H 07/20/24 11:37 Urine Nitrite Negative (Negative) 07/20/24 11:37 Urine Bilirubin Negative (Negative) 07/20/24 11:37 Urine Urobilinogen Negative (Negative) 07/20/24 11:37 Ur Leukocyte Esterase Negative (Negative) 07/20/24 11:37 Urine WBC (Auto) 0-5 /hpf (0-5) 07/20/24 11:37 Urine RBC (Auto) 6-10 /hpf (0-2) H 07/20/24 11:37 U Hyaline Cast (Auto) 0-2 /lpf (0-2) 07/20/24 11:37 U Epithel Cells (Auto) 3-5 /hpf (0-2) H 07/20/24 11:37 Urine Bacteria (Auto) None Seen (None Seen) 07/20/24 11:37 Adenovirus (PCR) Not Detected (NotDetected) 07/20/24 10:09 B. pertussis DNA (PCR) Not Detected (NotDetected) 07/20/24 10:09 B.parapertussis DNA PCR Not Detected (NotDetected) 07/20/24 10:09 C. pneumoniae DNA (PCR) Not Detected (NotDetected) 07/20/24 10:09 Coronavirus OC43 (PCR) DETECTED (NotDetected) A 07/20/24 10:09 Coronavirus HKU1 (PCR) Not Detected (NotDetected) 07/20/24 10:09 Coronavirus 229E (PCR) Not Detected (NotDetected) 07/20/24 10:09 SARS-CoV-2 (PCR) Not Detected (NotDetected) 07/20/24 10:09 Coronavirus NL63 (PCR) Not Detected (NotDetected) 07/20/24 10:09 Human Metapneumovir PCR Not Detected (NotDetected) 07/20/24 10:09 Influenza Type A (PCR) Not Detected (NotDetected) 07/20/24 10:09 Influenza Type B (PCR) Not Detected (NotDetected) 07/20/24 10:09 M. pneumoniae (PCR) Not Detected (NotDetected) 07/20/24 10:09 Parainfluenza 1 (PCR) Not Detected (NotDetected) 07/20/24 10:09 Parainfluenza 2 (PCR) Not Detected (NotDetected) 07/20/24 10:09 Parainfluenza 3 (PCR) Not Detected (NotDetected) 07/20/24 10:09 Parainfluenza 4 (PCR) Not Detected (NotDetected) 07/20/24 10:09 RSV (PCR) Not Detected (NotDetected) 07/20/24 10:09 Entero/Rhino (PCR) Not Detected (NotDetected) 07/20/24 10:09 Impressions Chest X-Ray 07/20/24 10:02 XR chest 1V portable CLINICAL HISTORY: Dyspnea COMPARISON STUDY: 07/21/2023 FINDINGS: Heart size and pulmonary vasculature are normal. No effusion, consolidation, or pneumothorax. IMPRESSION: No acute findings. ACT 112: Negative or not required by law. Electronically signed by: Ba Vinson M.D. 07/20/2024 10:25 AM Supervising Physician Co-Signing Physician Notes Patient seen and examined independently. Discussed with above provider. Patient presents with 4-day history of upper URTI symptoms along with cough. Resp viral panel positive for coronavirus History of ongoing tobacco use. On physical examination Constitutional: WD/WN, vitals as above, NAD, sitting up in bed, pleasant, conversing easily Respiratory: Decreased bilateral air entry Cardiovascular: RRR, no murmur, no edema Vessels: no JVD or carotid bruit Chest: normal inspection of chest Abdomen: normal bowel sounds, soft, nontender, no hepatosplenomegaly Musculoskeletal: no cyanosis or clubbing, extremities motor strength 5/5 Skin: no rashes, warm and dry normal turgor Neurologic: PERRL, EOMI, accommodation nl, no face palsy, no dysarthria CN's II- XI intact bilaterally and moves all extremities Psychiatric: A+Ox3, euthymic affect Assessment/plan Acute hypoxic respiratory failure Suspect underlying COPD Rhinovirus infection DuoNeb [id number], IV methylprednisolone, wean oxygen as tolerated Started on inhaled corticosteroid/LABA; will need follow-up with PCP and pulmonology for evaluation of possible underlying COPD. Hold metoprolol given bradycardia/underlying lung disease. Will need to go up on lisinopril if blood pressure continues to be on higher side or choose alternate antihypertensives. I have reviewed the advanced practitioner's documentation, and I agree with, and take responsibility for the plan of care I spent a total of 30 minutes coordinating, documenting, and providing care for this patient excluding time spent in the performance of separately billed services. All of the aforementioned completed while collaborating with the assigned advanced practitioner for a full treatment plan
--- OUTSIDE RECORDS SUMMARY | 2024-07-20 12:58 | External Medical Summary | Summary of Care ---
Author Name Unknown Organization [facility] Address [address] [facility] [place] [address] Phone [phone] Care Team Providers Care Nuclear Unit Operator Name Role Phone Wendy GONZALES MD, Robbin Hung Primary Care Provider [phone] Encounter Details Date Type Department Care Team (Late st Contact Info) Description 07/12/2024 Population Health External Data Unspecified Department Allergies No known active allergiesdocumented as of this encounter (statuses as of 07/12/2024) Medications PRILOSEC CPDR 20 MG ORIndications:Es ophageal reflux one tab by mouth daily at bedtime 34 5 1 Active Additional Information Patient taking differently: Indications: as needed, Reported on 05/18/2023 Acetaminophen ER (TYLENOL ARTHRITIS PAIN) 650 MG TBCR Take 2 Tabs by mouth 2 times a day. 7 Active aspirin enteric coated 81 MG TBEC Take 1 Tab by mouth daily. 9 Active Vitamin D (Cholecalciferol ) 50 MCG (1999 UT) Oral Capsule Take by mouth . Active Vitamin B-12 100 MCG Oral Tablet (vitamin B-12) Take 1 Tablet by mouth in the morning. Active Cyclobenzaprine HCl 5 MG Oral Tablet (Flexeril)Indica tions:Lumbar degenerative disc disease,Spasm of muscle,Acute right-sided low back pain without sciatica Take by mouth 1 Tablet 2 times a day as needed for Muscle spasms. 30 Tablet 2 Active LORazepam 0.5 MG Oral Tablet (Ativan)Indicati ons:Anxiety Take 1 Tablet by mouth 3 times a day as needed for Anxiety. 30 Tablet 3 Active Nicotine 7 MG/24HR Transdermal Patch 24 Hour (Nicoderm CQ)Indications:T obacco use One 7 mg patch daily for 2 weeks; Remove old patch daily; and then stop. 14 Patch 1 4 Active Nicotine Polacrilex 4 MG Mouth/Throat Gum (Nicorette)Indic ations:Tobacco use Chew 1 piece of gum every 1 to 2 hours as needed 100 Each 1 4 Active metFORMIN HCl ER 500 MG Oral Tablet Extended Release 24 Hour (Glucophage XR) TAKE TWO TABLETS BY MOUTH WITH BREAKFAST 180 Tablet 1 4 Active FLUoxetine HCl 10 MG Oral Capsule (PROzac)Indicati ons:Complicated grief Take 1 Capsule by mouth in the morning. 30 Capsule 6 4 Active amLODIPine Besylate 5 MG Oral Tablet (Norvasc)Indicat ions:HTN, goal below 140/90 TAKE ONE TABLET BY MOUTH EVERY MORNING 90 Tablet 3 4 Active Lisinopril 20 MG Oral Tablet (Prinivil) TAKE ONE TABLET BY MOUTH EVERY MORNING 90 Tablet 4 Active Meloxicam 15 MG Oral Tablet (Mobic) Take 1 Tablet by mouth daily as needed for Other (pain). 90 Tablet 4 Active Atorvastatin Calcium 40 MG Oral Tablet (Lipitor) Take 1 Tablet by mouth daily. 90 Tablet 1 5 Active documented as of this encounter (statuses as of 07/12/2024) Active Problems Problem Noted Date Diagnosed Date Tobacco use 07/28/2023 Hypertension goal BP (blood pressure) < 130/80 0 07/28/2023 Body mass index (BMI) of 45.0 to [...] Family history of ischemic heart disease 009 Reflux esophagitis 09/17/2000 CARPAL TUNNEL SYNDROME, right 09/17/2000 documented as of this encounter (statuses as of 07/12/2024) Resolved Problems Problem Noted Date Diagnosed Date [...] 35-39 ISOLATED (SEE ACTUAL BMI) 12/03/2009 05/18/2023 Overview (12/03/2009): Per Obesity Protocol, #19 ADVANCE DIRECTIVE INFORMATION 11/18/2005 04/25/2024 Overview (11/18/2005): No, Advance Directive brochure offered , patient declined. documented as of this encounter (statuses as of 07/12/2024) Immunizations Name Administration Dates Next Due COVID-19 mRNA, LNP-s, No Pre serve, 2-Dose Series (Moderna) 10/04/2020,09/06/2020 COVID-19, mRNA, LNP-s, PF, B ooster, 100mcg/0.5mg (Moderna) 06/03/2021 Pneumococcal Conjugate Vacci ne, 20-valent ([id number]) 02/02/2023 Pneumococcal Polysaccharide PPV23 (Pneumovax) 11/28/2010 Seasonal Influenza Vac., MDV , IM, 0.5 mL (Fluzone) 03/17/2013,04/23/2012,04/02/2011,03/11,02/22/2009 Seasonal Influenza Virus Vac cine, Unspecified Formulation 04/05/2020,04/04/2019,07/09/2018,07/13,03/22/2016,03/11/2010,02/22/2009 Seasonal Influenza, PF, 6 M & above, IM , (FluLaval or Fluzone) 06/18/2023,04/04/2019,07/09/2018,07/13 Seasonal Influenza, Quadriva lent, No Preserve, IM 04/05/2020,03/22/2016,06/07/2015 Seasonal Influenza, Trivalen t, (IIV3), PF, (Fluzone) 04/27/2024 TD - Tetanus/Diptheria (ADULT) 07/09/2018 TD, Preservative Free 07/09/2018 TDAP, Age 7 and older, IM (Adacel) 11/20/2007 Zoster Vaccine Recombinant (Shingrix) 05/06/2023 ,02/02/2023 [...] money to get more. Never true 12/29/2022 Childcare Answer Date Recorded Do you feel overwhelmed with taking care of a child, family member or friend? No 12/29/2022 Does your family need help f inding childcare? (Household - for ages 0-17 years) Not on file 12/29/2022 Clothing Answer Date Recorded Have you been unable to get clothing when it was really needed? No 12/29/2022 Is your family able to get c lothes or diapers when needed? (Household - for ages 0-17 years) Not on file 12/29/2022 Personal Safety Answer Date Recorded Do you feel unsafe or have concerns for your saf ety? No 12/29/2022 Do you have concerns for you r family's safety? (Household - for ages 0-17 years) Not on file 12/29/2022 Utilities Answer Date Recorded Do you have trouble paying y our heating, water, or electric bill? No 12/29/2022 Is your family able to pay t he heat, water, or electric bill? (Household - for ages 0-17 years) Not on file 12/29/2022 Does your family have access to good internet? (Household - for ages 0-17 years) Not on file 12/29/2022 Employment Status Answer Date Recorded Are you unemployed or without regular income? No 12/29/2022 Does the [facility] have a [facility] source [facility] income? (Household - for ages 0-17 years) Not on file 12/29/2022 Social Connections Answer Date Recorded How often do you feel lonely or isolated from th ose around you? Never 12/29/2022 Financial Resource Strain Answer Date R ecorded Do you have any trouble payi ng for your medications, or do you think you might in the future? No 12/29/2022 Does your family have troubl e paying for medicine? (Household - for ages 0-17 years) Not on file 12/29/2022 Transportation Needs Answer Date Record ed READ ONLY Do you have troubl e getting a ride to medical visits or work? Never True 12/29/2022 Does your family have a hard time getting a ride to doctors visits? (Household - for ages 0-17 years) Not on file 12/29/2022 Has lack of transportation k ept you from medical appointments, meetings, work, or from getting things needed for daily living? Check all that apply. (Adult - for ages 18 years and over) Not on file 12/29/2022 Do you (or your family) have trouble finding or paying for a ride (transportation)? (Household - for ages 0-17 years) Not on file 12/29/2022 Housing Stability Answer Date Recorded Do you currently live in a s helter or have no steady place to sleep at night? No 12/29/2022 READ ONLY Do you think you a re at risk of becoming homeless? No 12/29/2022 Does your family worry about paying for your home or becoming homeless? (Household - for ages 0-17 years) Not on file 0 12/29/2022 Are you homeless or worried that you might be in the future? (Adult - for ages 18 years and over) Not on file Are you (or your family) moe eless or worried that you might be in the future? (Household - for ages 0-17 years) Not on file Food Insecurity Answer Date Recorded Do you need food for this week? No 12/29/2022 Are you able to get enough f ood for your family? (Household - for ages 0-17 years) Not on file 12/29/2022 Does your family need food t his week? (Household - for ages 0-17 years) Not on file 12/29/2022 Do you always have enough fo od for your family? 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 Not on file Not on file documented as of this encounter Plan of Treatment Scheduled Procedures Name Priority Associated Diagnoses Date/Ti me COLONOSCOPY FLEXIBLE PROXIMAL DIAGNOSTIC Recall History of colon polyps Health Maintenance Due Date Last Done Comments DISCUSS TOBACCO CESSATION (REFER TO SMARTSET #1358) 1966 Diabetic Eye Exam 1984 Hepatitis C Screening 1984 Hepatitis B Vaccine (1 of 3 - 19+ 3-dose series) 1985 HPV/Co-Test 1996 Cologuard 2011 Fecal Occult Blood Test 2011 Sigmoidoscopy 2011 Colonoscopy 07/31/2021 07/31/2020, 02/0 02/2021, 12/03/2016, Additional history exists Colorectal Cancer Screening 07/31/2021 Cervical Cancer Screening 04/21/2022 Pap Smear 04/21/2022 04/21/2019, 05/23, 06/11/2015, Additional history exists Depression Screening 02/03/2024 02/02/2023, 06/11/2015 (Discussed) Diabetic Foot Exam 02/03/2024 02/02/2023 COVID-19 Vaccine ( season) 2024 06/03/2021, 10/04/2020, 09/06/2020 Mammogram 07/15/2024 07/15/2023, 06/23, 11/25/2021, Additional history exists HbA1c 12/19/2024 06/21/2024, 071 , 09/16/2021, Additional history exists Albumin/Creatinine Ratio 06/21/2025 06/21/2024 GFR 06/21/2025 06/21/2024, 071 , 06/15/2021, Additional history exists DTap/Tdap Vaccines (4 - Td or Tdap) 07/09/2028 07/09/2018, 07/09/2018, 11/20/2007 Lipid Panel 06/21/2029 06/21/2024, 06/22, 11/19/2016, Additional history exists RETIRED - COLONOSCOPY-ANNUAL AGES 18-100 Discontinued 07/31/2020, 07/31/2020, 12/03/2016, Additional history exists Pneumococcal Vaccine: 50+ Years Completed 02/02/2023, 11/28/2010 Zoster Vaccines Completed 05/06/2023, 02/02/2023 Influenza Vaccine (FLU shot) Completed 04/27/2024, 04/27/2024, 06/18/2023, Additional history exists HPV (Gardasil) Vaccine Aged Out No lo nger eligible based on patient's age to complete this topic MENINGOCOCCAL (MENACTRA/MENVEO) Aged Out No longer eligible based on patient's age to complete this topic documented as of this encounter Medical Devices Not on filedocumented as of this encounter Care Teams Nuclear Unit Operator Relationship Specialty Start Date End Date Borden JANET, Robbin Hung MD [address] [facility], [place] [address] PCP - General 11/18/05 documented as of this encounter
--- OUTSIDE RECORDS SUMMARY | 2024-07-20 12:59 | External Medical Summary ---
Author Name Unknown Address Unknown Organization [id number]:[facility] [place] - [address] [place] [id number] Laboratory Report Ordering Provider Test Date Status AARON BLANC 06/21/2024 09:04:44 Final Observation Date Value Abnormality Reference (Units ) Status Vitamin B12 06/21/2024 09:04:44 193 [id number] (pg/mL) Final Performing Location [facility]AT[facility] - [address] [place] [id number]
--- OUTSIDE RECORDS SUMMARY | 2024-07-20 12:59 | External Medical Summary ---
Author Name Unknown Address Unknown Organization K01:LAB[facility]ATORY [facility] [place] - [address] [facility] [place] [address] Laboratory Report Ordering Provider Test Date Status DANA MARTIN 06/21/2024 09:04:44 Final Observation Date Value Abnormality Reference (Units ) Status BUN 06/21/2024 09:04:44 16 6-20 (mg/dL) Final Creatinine 06/21/2024 09:04:44 0.7 0.5-1.0 (mg/dL) Final Glomerular filtration rate/1.73 sq M.predicted [Volume Rate/Area] in Serum, Plasma or Blood by Creatinine-based formula (CKD-EPI) 06/21/2024 09:04:44 >90 >=60 (mL/min) Final eGFR is calculated based on the CKD-EPI 2020 equation. Sodium 06/21/2024 09:04:44 139 135-146 (m mol/L) Final Potassium 06/21/2024 09:04:44 4.5 3.5-5.1 (m mol/L) Final Cl 06/21/2024 09:04:44 101 98-107 (mm ol/L) Final CO2 06/21/2024 09:04:44 26 22-32 (mmo l/L) Final Anion gap 06/21/2024 09:04:44 12 7-15 (mmol /L) Final Glucose 06/21/2024 09:04:44 122 Above high normal 70 -120 (mg/dL) Final Albumin 06/21/2024 09:04:44 4.5 3.8-5.0 (g /dL) Final AST (Aspartate aminotransferase) 06/21/2024 09:04:44 23 10-35 (U/L) Fin al Alk Phos 06/21/2024 09:04:44 96 35-130 (U/ L) Final Bilirubin, Total 06/21/2024 09:04:44 0.6 <=1 .2 (mg/dL) Final Calcium 06/21/2024 09:04:44 9.7 8.4-10.2 ( mg/dL) Final Protein 06/21/2024 09:04:44 6.6 6.0-8.3 (g /dL) Final ALT (Alanine aminotransferase) 06/21/2024 09:04:44 27 10-35 (U/L) Amos verduzco Performing Location [facility]ORY [facility] [place] - [address] [facility] [address]
--- OUTSIDE RECORDS SUMMARY | 2024-07-20 12:59 | External Medical Summary | Summary of Care ---
Author Name Unknown Organization [facility] Address [address] [facility] [place] [address] Phone [phone] Care Team Providers Care Mri Supervisor Name Role Phone Wendy GONZALES MD, Jenny Hung Primary Care Provider [phone] Reason for Visit * Reason Onset Date Comments Medication Refill 03/15/2024 Encounter Details Date Type Department Care Team (Late st Contact Info) Description 03/15/2024 Refill Family Practice [facility] [place] [address] [facility] [place] [address] Jenny Sylvester III, MD 200 [facility] [place] [address] Allergies No known active allergiesdocumented as of this encounter (statuses as of 03/17/2024) Medications Medication Sig Dispensed Refills Start Date End Date Status PRILOSEC CPDR 20 MG ORIndications:Esop hageal reflux one tab by mouth daily at bedtime 34 5 02/01/2001 Active Additional Information Patient taking differently: Indications: as needed, Reported on 05/18/2023 Acetaminophen ER (TYLENOL ARTHRITIS PAIN) 650 MG TBCR Take 2 Tabs by mouth 2 times a day. 03/09/2017 Active aspirin enteric coated 81 MG TBEC Take 1 Tab by mouth daily. 06/20/2019 Active Vitamin D (Cholecalciferol) 50 MCG (2000 UT) Oral Capsule Take by mouth . Active Vitamin B-12 100 MCG Oral Tablet (vitamin B-12) Take 1 Tablet by mouth in the morning. Active Cyclobenzaprine HCl 5 MG Oral Tablet (Flexeril)Indicati ons:Lumbar degenerative disc disease,Spasm of muscle,Acute right-sided low back pain without sciatica Take by mouth 1 Tablet 2 times a day as needed for Muscle spasms. 30 Tablet 01/20/2022 Active LORazepam 0.5 MG Oral Tablet (Ativan)Indication s:Anxiety Take 1 Tablet by mouth 3 times a day as needed for Anxiety. 30 Tablet 08/09/2022 Active Lisinopril 20 MG Oral Tablet (Prinivil) TAKE ONE TABLET BY MOUTH EVERY MORNING 90 Tablet 3 03/13/2023 Active Nicotine 7 MG/24HR Transdermal Patch 24 Hour (Nicoderm CQ)Indications:Tob acco use One 7 mg patch daily for 2 weeks; Remove old patch daily; and then stop. 14 Patch 1 07/28/2023 Active Nicotine Polacrilex 4 MG Mouth/Throat Gum (Nicorette)Indicat ions:Tobacco use Chew 1 piece of gum every 1 to 2 hours as needed 100 Each 1 07/28/2023 Active metFORMIN HCl ER 500 MG Oral Tablet Extended Release 24 Hour (Glucophage XR) TAKE TWO TABLETS BY MOUTH WITH BREAKFAST 180 Tablet 1 09/30/2023 Active Atorvastatin Calcium 20 MG Oral Tablet (Lipitor) TAKE 1 TABLET BY MOUTH EVERY MORNING 90 Tablet 10/02/2023 Active FLUoxetine HCl 10 MG Oral Capsule (PROzac)Indication s:Complicated grief Take 1 Capsule by mouth in the morning. 30 Capsule 6 12/31/2023 Active amLODIPine Besylate 5 MG Oral Tablet (Norvasc)Indicatio ns:HTN, goal below 140/90 TAKE ONE TABLET BY MOUTH EVERY MORNING 90 Tablet 3 01/07/2024 Active Meloxicam 15 MG Oral Tablet (Mobic) Take 1 Tablet by mouth daily as needed (pain). 90 Tablet 03/17/2024 Active Meloxicam 15 MG Oral Tablet (Mobic) TAKE ONE TABLET BY MOUTH EVERY MORNING FOR PAIN 90 Tablet 02/26/2024 4 Discontinue d(Refill) documented as of this encounter (statuses as of 03/17/2024) Active Problems Problem Noted Date Diagnosed Date [...] as of this encounter (statuses as of 03/17/2024) Resolved Problems Problem Noted Date Diagnosed Date [...] as of this encounter (statuses as of 03/17/2024) Immunizations Name Administration Dates Next Due COVID-19 mRNA, LNP-s, No Pre serve, 2-Dose Series (Moderna) 10/04/2020,09/06/2020 COVID-19, mRNA, LNP-s, PF, B ooster, 100mcg/0.5mg (Moderna) 06/03/2021 Pneumococcal Conjugate Vacci ne, 20-valent ([id number]) 02/02/2023 Pneumococcal Polysaccharide PPV23 (Pneumovax) 11/28/2010 Seasonal Influenza Virus Vac cine, Unspecified Formulation 04/05/2020,04/04/2019,07/09/2018,07/13,03/22/2016,03/11/2010,02/22/2009 Seasonal Influenza, PF, 6 M & above, IM , (FluLaval or Fluzone) 06/18/2023,04/04/2019,07/09/2018,07/13 Seasonal Influenza, Quadriva lent, No Preserve, IM 04/05/2020,03/22/2016,06/07/2015 Seasonal Influenza, Trivalen t, (IIV3), with Preserv, (Fluzone) 03/17/2013,04/23/2012,04/02/2011,03/11,02/22/2009 TD - Tetanus/Diptheria (ADULT) 07/09/2018 TD, [...] y our heating, water, or electric bill? (Adult - for ages 18 years and over) Not on file 12/31/2023 Is your family able to pay t he heat, water, or electric bill? (Household - for ages 0-17 years) Not on file 12/31/2023 Does your family have access to good internet? (Household - for ages 0-17 years) Not on file 12/31/2023 Employment Status Answer Date Recorded Are you unemployed or without regular income? No 12/29/2022 Does the household have a re gular source of income? (Household - for ages 0-17 years) Not on file 12/29/2022 Social Connections Answer Date Recorded How often do you feel lonely or isolated from those around you? (Adult - for ages 18 years and over) Not on file 12/31/2023 Financial Resource Strain Answer Date R ecorded [...] ages 0-17 years) Not on file 12/29/2022 Sex and Gender Information Value Date Recorded Sex Assigned at Female 01/15/2022 6:57 AM EDT Gender Identity Female 01/15/2022 6:57 AM EDT Sexual Orientation Straight 01/15/2022 6: 57 AM EDT Job Start Date Occupation Industry Not on file Not on file Not on file documented as of this encounter Miscellaneous Notes * Telephone Encounter - Emmanuel Deras, [facility] - 03/17/2024 8:22 AM EDTSigned Prescriptions: Disp Refills Meloxicam 15 MG Oral Tablet (Mobic) 90 Tab*0 Sig: Take 1 Tablet by mouth daily as needed (pain).Authorizing Provider: JENNY SYLVESTER III User: EMMANUEL FITZGERALD * Telephone Encounter - Emmanuel Deras [facility] - 03/17/2024 8:21 AM EDT Rx resent. documented in this encounter Plan of Treatment Scheduled Procedures Name Priority Associated Diagnoses Date/Ti me COLONOSCOPY FLEXIBLE PROXIMAL DIAGNOSTIC Recall History of colon polyps Health Maintenance Due Date Last Done Comments DISCUSS TOBACCO CESSATION (REFER TO SMARTSET #3291) 1966 Albumin/Creatinine Ratio 1984 Diabetic Eye Exam 1984 Hepatitis C Screening 1984 Hepatitis B Vaccine (1 of 3 - 19+ 3-dose series) 1985 HPV/Co-Test 1996 Cologuard 2011 Fecal Occult Blood Test 2011 Sigmoidoscopy 2011 Colonoscopy 07/31/2021 07/31/2020, 0202/2021, 12/03/2016, Additional history exists Colorectal Cancer Screening 07/31/2021 Cervical Cancer Screening 04/21/2022 Pap Smear 04/21/2022 04/21/2019, 05/23, 06/11/2015, Additional history exists HbA1c 07/01/2023 12/29/2022, 08/21, 06/28/2020, Additional history exists Lipid Panel 07/09/2023 07/09/2018, 10/22, 11/23/2014, Additional history exists GFR 12/30/2023 12/29/2022, 05/23, 06/28/2020, Additional history exists Depression Screening 02/03/2024 02/02/2023, 06/11/2015 (Discussed) Diabetic Foot Exam 02/03/2024 02/02/2023 COVID-19 Vaccine ( - season) 2024 06/03/2021, 10/04/2020, 09/06/2020 Influenza Vaccine (FLU shot) (#1) 2024 06/18/2023, 04/05/2020, 04/05/2020, Additional history exists Mammogram 07/15/2024 07/15/2023, 06/23, 11/25/2021, Additional history exists DTap/Tdap Vaccines (4 - Td or Tdap) 07/09/2028 07/09/2018, 07/09/2018, 11/20/2007 RETIRED - COLONOSCOPY-ANNUAL AGES 18-100 Discontinued 07/31/2020, 07/31/2020, 12/03/2016, Additional history exists Pneumococcal Vaccine: Pediatrics (0 to 5 Years) and At-Risk Patients (6 to 64 Years) Completed 02/02/2023, 11/28/2010 Zoster Vaccines Completed 05/06/2023, 02/02/2023 HPV (Gardasil) Vaccine Aged Out No lo nger eligible based on patient's age to complete this topic MENINGOCOCCAL (MENACTRA/MENVEO) Aged Out No longer eligible based on patient's age to complete this topic documented as of this encounter Medical Devices Not on filedocumented as of this encounter Care Teams Mri Supervisor Relationship Specialty Start Date End Date Jenny Sylvester III, MD [address] [place] [address] PCP - General 11/18/05 documented as of this encounter
--- OUTSIDE RECORDS SUMMARY | 2024-07-20 12:59 | External Medical Summary ---
Author Name Unknown Address Unknown Organization K01:[facility] [place] - [facility] [address] [facility] [address] Laboratory Report Ordering Provider Test Date Status DIAMOND COLVIN 06/21/2024 09:04:44 Final Observation Date Value Abnormality Reference (Units ) Status HbA1C 06/21/2024 09:04:44 6.3 Above high normal 4. 0-5.6 (%) Final The use of HbA1c to monitor glycemic status is based on normal hemoglobin and HbA composition. This test should not be used in patients with abnormal hemoglobin that affects the half life of the red blood cell or the in vivo glycation rates. Glucose, estimated average 06/21/2024 09:04:44 134 Above high normal <126 (mg/dL) Amos verduzco Performing Location [facility] [place] - [address] [facility] [address]
--- OUTSIDE RECORDS SUMMARY | 2024-07-20 12:59 | External Medical Summary | Summary of Care ---
Author Name Unknown Organization [facility] Address [address] [place] [address] Phone [phone] Care Team Providers Care Academy Director Name Role Phone Wendy GONZALES MD, Robbin Hung Primary Care Provider [phone] Reason for Visit * Reason Onset Date Comments Medication Administration 04/27/2024 Flu an d/or Pneumo Inj Encounter Details Date Type Department Care Team (Late st Contact Info) Description 04/27/2024 2:00 PM EST Immunization Ancillary Department, [place] [address] [place] [address] [place] [address] [place] [address] Need for prophylactic vaccination and inoculation against influenza* Allergies No known active allergiesdocumented as of this encounter (statuses as of 04/27/2024) Medications Medication Sig Dispensed Refills Start Date [...] 01/20/2022 Active LORazepam 0.5 MG Oral Tablet (Ativan)Indications :Anxiety Take 1 Tablet by mouth 3 times a day as needed for Anxiety. 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 14 Patch 1 07/28/2023 Active Nicotine Polacrilex 4 MG Mouth/Throat Gum (Nicorette)Indicati ons:Tobacco use Chew 1 piece of gum every [...] Active FLUoxetine HCl 10 MG Oral Capsule (PROzac)Indications :Complicated grief Take 1 Capsule by mouth in the morning. 30 Capsule 6 12/31/2023 Active amLODIPine Besylate 5 MG Oral Tablet (Norvasc)Indication s:HTN, goal below 140/90 TAKE ONE TABLET BY MOUTH EVERY MORNING 90 Tablet 3 01/07/2024 Active Meloxicam 15 MG Oral Tablet (Mobic) TAKE 1 TABLET BY MOUTH DAILY NEEDED FOR PAIN 90 Tablet 04/27/2024 Active documented as of this encounter (statuses as of 04/27/2024) Active Problems Problem Noted Date Diagnosed Date [...] as of this encounter (statuses as of 04/27/2024) Resolved Problems Problem Noted Date Diagnosed Date [...] 12/03/2009 05/18/2023 Overview: Per Obesity Protocol, #19 ADVANCE DIRECTIVE INFORMATION 11/18/2005 04/25/2024 Overview: No, Advance Directive brochure offered , patient declined. documented as of this encounter (statuses as of 04/27/2024) Immunizations Name Administration Dates Next Due COVID-19 mRNA, LNP-s, No Pre serve, 2-Dose Series (Moderna) 10/04/2020,09/06/2020 COVID-19, mRNA, LNP-s, PF, B ooster, 100mcg/0.5mg (Moderna) 06/03/2021 Pneumococcal Conjugate Vacci ne, 20-valent ([id number]) 02/02/2023 Pneumococcal Polysaccharide PPV23 (Pneumovax) 11/28/2010 Seasonal [...] this encounter Patient Instructions * Patient Instructions* Soraya Gallagher LPN - 04/27/2024 2:06 PM EST ~~PATIENT INSTRUCTIONS FOR FLU SHOT~~ [...] documented in this encounter Progress Notes * Soraya Gallagher LPN - 04/27/2024 2:06 PM EST PRE - ADMINISTRATION DOCUMENTATION Are you experiencing any cold symptoms or fever? No Have you had Guillain-Houston Syndrome (an illness that causes paralysis) within the last 6 weeks? No Have you had the flu shot in the past? YES Have you ever had a reaction to the flu shot? No Soraya Gallagher LPN, 04/27/2024 2:06 PM Immunization Administration Documentation Time Out Procedure [...] Comments DISCUSS TOBACCO CESSATION (REFER TO SMARTSET #2776) 1966 Albumin/Creatinine Ratio 1984 Diabetic Eye Exam 1984 Hepatitis C Screening 1984 Hepatitis B Vaccine (1 of 3 - 19+ 3-dose series) 1985 HPV/Co-Test 1996 Cologuard 2011 Fecal Occult Blood Test 2011 Sigmoidoscopy 2011 Colonoscopy 07/31/2021 07/31/2020, 020 02/2021, 12/03/2016, Additional history exists Colorectal Cancer [...] 02/02/2023 Influenza Vaccine (FLU shot) Completed 04/27/2024, 06/18/2023, 04/05/2020, Additional history exists HPV (Gardasil) Vaccine Aged Out No lo nger eligible based on patient's age to complete this topic MENINGOCOCCAL (MENACTRA/MENVEO) Aged Out No longer eligible based on patient's age to complete this topic documented as of this encounter Medical Devices Not on filedocumented as of this encounter Visit Diagnoses Diagnosis Need for prophylactic vaccination and inoculation against influenza- Primary documented in this encounter Care Teams Academy Director Relationship Specialty Start Date End Date Robbin Nguyen III, MD [address] [place] [address] PCP - General 11/18/05 documented as of this encounter
--- OUTSIDE RECORDS SUMMARY | 2024-07-20 12:59 | External Medical Summary | Summary of Care ---
Author Name Unknown Organization [facility] Address [address] [facility] [place] [address] Phone [phone] Care Team Providers Care Truck Rental Manager Name Role Phone Wendy GONZALES MD, Jenny Hung Primary Care Provider [phone] Reason for Visit * Reason Comments eRx-Medication Refill Encounter Details Date Type Department Care Team (Late st Contact Info) Description 04/25/2024 Refill Family Practice [facility] [place] [address] [facility] [place] [address] Jenny Sylvester III, MD [address] [place] [address] Encounter for long-term (current) use of medications* [...] 7 MG/24HR Transdermal Patch 24 Hour (Nicoderm CQ)Indications:To bacco use One 7 mg patch daily for 2 weeks; Remove old patch daily; and then stop. 14 Patch 1 07/28/2023 Active Nicotine Polacrilex 4 MG Mouth/Throat Gum (Nicorette)Indica tions:Tobacco use Chew 1 piece of gum every [...] Active FLUoxetine HCl 10 MG Oral Capsule (PROzac)Indicatio ns:Complicated grief Take 1 Capsule by mouth in the morning. 30 Capsule 6 12/31/2023 Active amLODIPine Besylate 5 MG Oral Tablet (Norvasc)Indicati ons:HTN, goal below 140/90 TAKE ONE TABLET BY MOUTH EVERY MORNING 90 Tablet 3 01/07/2024 Active Meloxicam 15 MG Oral Tablet (Mobic) TAKE 1 TABLET BY MOUTH DAILY NEEDED FOR PAIN 90 Tablet 04/27/2024 Active Meloxicam 15 MG Oral Tablet (Mobic) Take 1 Tablet by mouth daily as needed (pain). 90 Tablet 03/17/2024 04/27/20 24 Discontinued documented as of this encounter [...] (Moderna) 06/03/2021 Pneumococcal Conjugate Vacci ne, 20-valent ([id number]) 02/02/2023 Pneumococcal Polysaccharide PPV23 (Pneumovax) 11/28/2010 Seasonal Influenza Vac., MDV , IM, 0.5 mL (Fluzone) 03/17/2013,04/23/2012,04/02/2011,03/11,02/22/2009 Seasonal Influenza Virus Vac cine, Unspecified Formulation 04/05/2020,04/04/2019,07/09/2018,07/13,03/22/2016,03/11/2010,02/22/2009 Seasonal Influenza, PF, 6 M & above, IM , (FluLaval or Fluzone) 06/18/2023,04/04/2019,07/09/2018,07/13 Seasonal Influenza, Quadriva lent, No Preserve, IM 04/05/2020,03/22/2016,06/07/2015 TD - Tetanus/Diptheria (ADULT) 07/09/2018 TD, Preservative [...] Encounter - Jenny Sylvester III, MD - 04/27/2024 8:00 AM ESTSigned Prescriptions: Disp Refills Meloxicam 15 MG Oral Tablet (Mobic) 90 Tab*0 Sig: TAKE 1 TABLET BY MOUTH DAILY NEEDED FOR PAINAuthorizing Provider: JENNY SYLVESTER III * Telephone Encounter - Arian Elliott, cloth dyer - 04/26/2024 12:04 PM ESTPending Prescriptions: Disp Refills Meloxicam 15 MG Oral Tablet (Mobic) 90 Tab*0 Sig: TAKE 1 TABLET BY MOUTH DAILY NEEDED FOR PAIN * Telephone Encounter - Arian Elliott cloth dyer - 04/26/2024 12:01 PM EST Received message from [facility] regarding patient needing labs. Call Placed, Left message on voicemail advising of required labs Thank you, Arian Elliott Simulation Educator [facility] 04/26/2024, 12:01 PM * Telephone Encounter - Sachi Santiago [facility] - 04/26/2024 10:59 AM ESTPending Prescriptions: Disp Refills Meloxicam 15 MG Oral Tablet (Mobic) 90 Tab*0 Sig: TAKE 1 TABLET BY MOUTH DAILY NEEDED FOR PAIN * Telephone Encounter - Sachi Santiago [facility] - 04/26/2024 10:57 AM EST Unable to authorize medication refills for pended medication(s) at this time. Per refill protocol patient should have ROUTINE LABS on file within past year. Reviewed AMP report, Care Gaps/Health Maintenance, medications list, and for any routine labs typically ordered for this patient. Lab orders placed. Please contact patient to advise of labs ordered for blood draw AND URINE specimen (patient will have to be able to void to provide sample). Recommend patient to fast if able for labs. Patient may still have water and regular medications. Advise to obtain labs before requesting the next refill. After contacting patient, please forward request to Jenny Sylvester III, MD. Thank you, Sachi Santiago, PharmD Clinical Pharmacist [facility]) 04/26/24 10:58 AM [phone] documented in this encounter Plan of Treatment Upcoming Encounters Date Type Department Care Team (Late st Contact Info) Description 04/27/2024 2:00 PM EST Immunization Ancillary Department, [address] [address] [facility] [place] [address] Scheduled Orders Name Type Priority Associated Diagnoses Orde r Schedule VITAMIN B12 Lab Routine Encounter for long-term (current) use of medications Expected: 05/10/2024 (Approximate), Expires: 04/26/2025 Scheduled Procedures Name Priority Associated Diagnoses Date/Ti me COLONOSCOPY FLEXIBLE PROXIMAL DIAGNOSTIC Recall History of colon polyps Health Maintenance Due Date Last Done Comments DISCUSS TOBACCO CESSATION (REFER TO SMARTSET #6367) 1966 Albumin/Creatinine Ratio 1984 Diabetic Eye Exam 1984 Hepatitis C Screening 1984 Hepatitis B Vaccine (1 of 3 - 19+ 3-dose series) 1985 HPV/Co-Test 1996 Cologuard 2011 Fecal Occult Blood Test 2011 Sigmoidoscopy 2011 Colonoscopy 07/31/2021 07/31/2020, 02/02/2021, 12/03/2016, Additional history exists Colorectal Cancer Screening [...] Vaccine ( season) 2024 06/03/2021, 10/04/2020, 09/06/2020 Influenza Vaccine [...] medications documented in this encounter Care Teams Truck Rental Manager Relationship Specialty Start Date End Date Jenny Sylvester III, MD [address] [place] [address] PCP - General 11/18/05 documented as of this encounter
--- OUTSIDE RECORDS SUMMARY | 2024-07-20 12:59 | External Medical Summary | Summary of Care ---
Author Name Unknown Organization [facility] Address [address] [facility] [place] [address] Phone [phone] Care Team Providers Care Customer Care Professional Name Role Phone Wendy GONZALES MD, Jenny Hung Primary Care Provider [phone] Reason for Visit * Reason Comments eRx-Medication Refill Encounter Details Date Type Department Care Team (Late st Contact Info) Description 02/25/2024 Refill Family Practice [facility] [address] [facility] [place] [address] Jenny Sylvester III, MD 200 [place] [address] Allergies No known active allergiesdocumented as of this encounter (statuses as of 02/26/2024) Medications Medication Sig Dispensed Refills Start Date [...] EVERY MORNING FOR PAIN 90 Tablet 02/26/2024 Active Meloxicam 15 MG Oral Tablet (Mobic) TAKE ONE TABLET BY MOUTH EVERY MORNING FOR PAIN 90 Tablet 1 08/31/2023 02/26/20 24 Discontinued documented as of this encounter (statuses as of 02/26/2024) Active Problems Problem Noted Date Diagnosed Date [...] as of this encounter (statuses as of 02/26/2024) Resolved Problems Problem Noted Date Diagnosed Date [...] as of this encounter (statuses as of 02/26/2024) Immunizations Name Administration Dates Next Due COVID-19 mRNA, LNP-s, No Pre serve, 2-Dose Series (Moderna) 10/04/2020,09/06/2020 COVID-19, mRNA, LNP-s, PF, B ooster, 100mcg/0.5mg (Moderna) 06/03/2021 Pneumococcal Conjugate Vacci ne, 20-valent ([id number]) 02/02/2023 Pneumococcal Polysaccharide PPV23 (Pneumovax) 11/28/2010 Seasonal [...] encounter Miscellaneous Notes * Telephone Encounter - Arian Elliott, day camp counselor - 02/26/2024 3:14 PM EDT Received message from [facility] regarding patient needing labs. Call Placed, Left message on voicemail advising of required labs Thank you, Arian Elliott Business Process Engineer [employer] [facility] 02/26/2024, 3:14 PM * Telephone Encounter - Jair Bajwa [facility] - 02/26/2024 2:42 PM EDT Signed Prescriptions: Disp Refills Meloxicam 15 MG Oral Tablet (Mobic) 90 Tab*0 Sig: TAKE ONE TABLET BY MOUTH EVERY MORNING FOR PAIN Authorizing Provider: JENNY SYLVESTER III Ordering User: JAIR BAJWA * Telephone Encounter - Jair Bajwa RP - 02/26/2024 2:41 PM EDT Provided 90 days supply with 0 refill(s). Per refill protocol patient should have ROUTINE [...] labs before requesting the next refill. Thanks, Jair Bajwa PharmD Clinical Pharmacist [facility] ([facility]) [phone] 02/26/2024, 2:41 PM documented in this encounter Plan of [...] Test 2011 Sigmoidoscopy 2011 Colonoscopy 07/31/2021 07/31/2020, 02/2021, 12/03/2016, Additional history exists Colorectal Cancer [...] filedocumented as of this encounter Care Teams Customer Care Professional Relationship Specialty Start Date End Date Jenny Sylvester III, MD [address] [facility] [place] [address] PCP - General 11/18/05 documented as of this encounter
--- OUTSIDE RECORDS SUMMARY | 2024-07-20 12:59 | External Medical Summary ---
Author Name Unknown Address Unknown Organization K01:[facility] [place] [address] [place] [address] Laboratory Report Ordering Provider Test Date Status DANA MARTIN 06/21/2024 09:04:44 Final Observation Date Value Abnormality Reference (Units ) Status Triglyceride 06/21/2024 09:04:44 180 Above high normal <=174 (mg/dL) Final Triglyceride Reference Range s (mg/dL):
<150 Acceptable
150-174 Borderline high
175-499 High
>=500 Very high Cholesterol 06/21/2024 09:04:44 323 Above high normal <200 (mg/dL) Final Total Cholesterol Reference Ranges (mg/dL):
<200 Desirable
200-239 Borderline high
>=240 High HDL 06/21/2024 09:04:44 49 Below low normal >49 (mg/dL) Final HDL Cholesterol Reference Ra nges (mg/dL):
>=60 High (Desirable)
<50 Low (Undesirable) For Females
<40 Low (Undesirable) For Males NON-HDL CHOLESTEROL 06/21/2024 09:04:44 274 Above high normal <=159 (mg/dL) Final Non-HDL Cholesterol Referenc e Range (mg/dL):
<100 Target level for high risk ASCVD patient
<130 Optimal for general population
130-159 Near optimal for general population
160-189 Borderline High
190-219 High
>=220 Very High LDL, (calculated) 06/21/2024 09:04:44 238 Above high n ormal <=129 (mg/dL) Final LDL Cholesterol Reference Ra nges (mg/dL):
<70 Target level for high risk ASCVD patient
<100 Optimal for general population
100-129 Near optimal for general population
130-159 Borderline high
160-189 High
>=190 Very high Performing Location [facility] [place] [address] [facility] [address]
--- OUTSIDE RECORDS SUMMARY | 2024-07-20 12:59 | External Medical Summary | Summary of Care ---
Author Name Unknown Organization [facility] Address [address] [facility] [place] [address] Phone [phone] Care Team Providers Care Delivery Agent Name Role Phone Wendy GONZALES MD, Robbin Hung Primary Care Provider [phone] Reason for Visit * Reason Onset Date Comments Health Maintenance 05/13/2024 Encounter Details Date Type Department Care Team (Late st Contact Info) Description 05/13/2024 Telephone Family Practice [facility] [place] [address] [facility] [place] [address] Robbin Nguyen III, MD 200 [place] [address] Health Maintenance Allergies No known active allergiesdocumented as of this encounter (statuses as of 05/13/2024) Medications PRILOSEC CPDR 20 MG ORIndications:Es ophageal [...] needed for Anxiety. 30 Tablet 3 Active Lisinopril 20 MG Oral Tablet (Prinivil) TAKE ONE TABLET BY MOUTH EVERY MORNING 90 Tablet 3 3 Active Nicotine 7 MG/24HR Transdermal Patch [...] EVERY MORNING 90 Tablet 3 4 Active Meloxicam 15 MG Oral Tablet (Mobic) TAKE 1 TABLET BY MOUTH DAILY NEEDED FOR PAIN 90 Tablet 4 Active Atorvastatin Calcium 20 MG Oral Tablet (Lipitor) TAKE 1 TABLET BY MOUTH EVERY MORNING 90 Tablet 4 Active documented as of this encounter (statuses as of 05/13/2024) Active Problems Problem Noted Date Diagnosed Date [...] as of this encounter (statuses as of 05/13/2024) Resolved Problems Problem Noted Date Diagnosed Date [...] as of this encounter (statuses as of 05/13/2024) Immunizations Name Administration Dates Next Due COVID-19 mRNA, LNP-s, No Pre serve, 2-Dose Series (Moderna) 10/04/2020,09/06/2020 COVID-19, mRNA, LNP-s, PF, B ooster, 100mcg/0.5mg (Moderna) 06/03/2021 Pneumococcal Conjugate Vacci ne, 20-valent ([id number]) 02/02/2023 Pneumococcal Polysaccharide PPV23 (Pneumovax) 11/28/2010 Seasonal [...] 12/29/2022 Does the household have a re lar source of income? 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 Not on file Not on file Not on file documented as of this encounter Miscellaneous Notes * Telephone Encounter - Kelly Woodruff LPN - 05/13/2024 8:53 AM EST Care Gaps Comprehensive Care Outreach Last Office/Telemedicine Visit: 12/31/2023 (in office), Visit date not found (telemedicine) [...] A1C - [facility] 5.4 10/19/2013 10:20 AM BP Readings from Last 1 Encounters: 12/31/23 124/74 Reviewed Health Maintenance below: Health Maintenance Topic Date Due DISCUSS TOBACCO CESSATION (REFER TO SMARTSET #3291) Never done Diabetic Eye Exam Never done Albumin/Creatinine Ratio Never done Hepatitis C Screening Never done Hepatitis B Vaccine (1 of 3 - 19+ 3-dose series) Never done Colorectal Cancer Screening 07/31/2021 Cervical Cancer Screening 04/21/2022 HbA1c 07/01/2023 Lipid Panel 07/09/2023 GFR 12/30/2023 Diabetic Foot Exam 02/03/2024 [facility] eye Care Gap Outreach Action Taken: Left message my g documented in this encounter Plan of Treatment [...] filedocumented as of this encounter Care Teams Delivery Agent Relationship Specialty Start Date End Date Robbin Nguyen III, MD [address] [place] [address] PCP - General 11/18/05 documented as of this encounter
--- OUTSIDE RECORDS SUMMARY | 2024-07-20 12:59 | External Medical Summary | Summary of Care ---
Author Name Unknown Organization [facility] Address [address] [facility] [place] [address] Phone [phone] Care Team Providers Care Disabilities Services Officer Name Role Phone Wendy GONZALES MD, Jenny Hung Primary Care Provider [phone] Reason for Visit * Reason Onset Date Comments Medication Refill 06/16/2024 Encounter Details Date Type Department Care Team (Late st Contact Info) Description 06/16/2024 Refill Family Practice [facility] [place] [address] [facility] [place] [address] Jenny Sylvester III, MD 200 [facility] [place] [address] Allergies No known active allergiesdocumented as of this encounter (statuses as of 06/17/2024) Medications PRILOSEC CPDR 20 MG ORIndications:Es ophageal reflux one tab by mouth daily at bedtime 34 5 02/02/20 01 Active Additional Information Patient taking differently: Indications: as needed, Reported on 05/18/2023 Acetaminophen ER (TYLENOL ARTHRITIS PAIN) 650 MG TBCR Take 2 Tabs by mouth 2 times a day. 03/09/20 17 Active aspirin enteric coated 81 MG TBEC Take 1 Tab by mouth daily. 06/20/20 19 Active Vitamin D (Cholecalciferol ) 50 MCG [...] as needed for Muscle spasms. 30 Tablet 01/21/20 22 Active LORazepam 0.5 MG Oral Tablet (Ativan)Indicati ons:Anxiety Take 1 Tablet by mouth 3 times a day as needed for Anxiety. 30 Tablet 08/09/19 23 Active Nicotine 7 MG/24HR Transdermal Patch 24 Hour (Nicoderm CQ)Indications:T obacco use One 7 mg patch daily for 2 weeks; Remove old patch daily; and then stop. 14 Patch 1 07/28/19 24 Active Nicotine Polacrilex 4 MG Mouth/Throat Gum (Nicorette)Indic ations:Tobacco use Chew 1 piece of gum every 1 to 2 hours as needed 100 Each 1 07/28/19 24 Active metFORMIN HCl ER 500 MG Oral Tablet Extended Release 24 Hour (Glucophage XR) TAKE TWO TABLETS BY MOUTH WITH BREAKFAST 180 Tablet 1 09/30/19 24 Active FLUoxetine HCl 10 MG Oral Capsule (PROzac)Indicati ons:Complicated grief Take 1 Capsule by mouth in the morning. 30 Capsule 6 12/31/19 24 Active amLODIPine Besylate 5 MG Oral Tablet (Norvasc)Indicat ions:HTN, goal below 140/90 TAKE ONE TABLET BY MOUTH EVERY MORNING 90 Tablet 3 01/07/20 24 Active Atorvastatin Calcium 20 MG Oral Tablet (Lipitor) TAKE 1 TABLET BY MOUTH EVERY MORNING 90 Tablet 04/29/20 24 Active Lisinopril 20 MG Oral Tablet (Prinivil) TAKE ONE TABLET BY MOUTH EVERY MORNING 90 Tablet 06/09/20 24 Active Meloxicam 15 MG Oral Tablet (Mobic) Take 1 Tablet by mouth daily as needed for Other (pain). 90 Tablet 06/17/20 24 Active Meloxicam 15 MG Oral Tablet (Mobic) TAKE 1 TABLET BY MOUTH DAILY NEEDED FOR PAIN 90 Tablet 04/27/20 24 024 Discontin ued(Refil l) documented as of this encounter (statuses as of 06/17/2024) Active Problems Problem Noted Date Diagnosed Date [...] as of this encounter (statuses as of 06/17/2024) Resolved Problems Problem Noted Date Diagnosed Date [...] as of this encounter (statuses as of 06/17/2024) Immunizations Name Administration Dates Next Due COVID-19 mRNA, LNP-s, No Pre serve, 2-Dose Series (Moderna) 10/04/2020,09/06/2020 COVID-19, mRNA, LNP-s, PF, B ooster, 100mcg/0.5mg (Moderna) 06/03/2021 Pneumococcal Conjugate Vacci ne, 20-valent ([id number]) 02/02/2023 Pneumococcal Polysaccharide PPV23 (Pneumovax) 11/28/2010 Seasonal [...] file Not on file Not on file 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 In the morning..Refused By: MELINA ROBERTSeason for Refusal: Too soon * Telephone Encounter - Jennifer Robetrs RPh - 06/17/2024 8:08 PM EST RX authorized. Zero refills given until upcoming lab appt 06/20. Thanks, Jose Ramon PachecoD Clinical Pharmacist [facility] [phone] 06/17/2024, 8:09 PM documented in this encounter Plan of Treatment Upcoming Encounters Date Type Department Care Team (Late st Contact Info) Description 06/20/2024 8:30 AM EST Laboratory Laboratory, [facility] [address] [address] [facility] [address] [id number] Scheduled Procedures Name Priority Associated Diagnoses Date/Ti me COLONOSCOPY FLEXIBLE PROXIMAL DIAGNOSTIC Recall History of colon polyps Health Maintenance Due Date Last Done Comments DISCUSS TOBACCO CESSATION (REFER TO SMARTSET #8161) 1966 Albumin/Creatinine Ratio 1984 Diabetic Eye Exam [...] Diabetic Foot Exam 02/03/2024 02/02/2023 COVID-19 Vaccine (2023- season) 2024 06/03/2021, 10/04/2020, 09/06/2020 Mammogram 07/15/2024 [...] filedocumented as of this encounter Care Teams Disabilities Services Officer Relationship Specialty Start Date End Date Jenny Sylvester III, MD [address] [place] [address] PCP - General 11/18/05 documented as of this encounter
--- OUTSIDE RECORDS SUMMARY | 2024-07-20 12:59 | External Medical Summary | Summary of Care ---
Author Name Unknown Organization [facility] Address [address] [facility] [place] [address] Phone [phone] Care Team Providers Care Value Stream Leader Name Role Phone Wendy GONZALES MD, Robbin Hung Primary Care Provider [phone] Reason for Visit * Reason Comments eRx-Medication Refill Encounter Details Date Type Department Care Team (Late st Contact Info) Description 03/26/2024 Refill Family Practice [facility] [place] 200 [facility] [place] [address] Robbin Nguyen III, MD 200 [place] [address] Allergies No known active allergiesdocumented as of this encounter (statuses as of 03/28/2024) Medications Medication Sig Dispensed Refills Start Date [...] MG/24HR Transdermal Patch 24 Hour (Nicoderm CQ)Indications:Toba 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 90 Tablet 03/17/2024 Active documented as of this encounter (statuses as of 03/28/2024) Active Problems Problem Noted Date Diagnosed Date [...] as of this encounter (statuses as of 03/28/2024) Resolved Problems Problem Noted Date Diagnosed Date [...] as of this encounter (statuses as of 03/28/2024) Immunizations Name Administration Dates Next Due COVID-19 mRNA, LNP-s, No Pre serve, 2-Dose Series (Moderna) 10/04/2020,09/06/2020 COVID-19, mRNA, LNP-s, PF, B ooster, 100mcg/0.5mg (Moderna) 06/03/2021 Pneumococcal Conjugate Vacci ne, 20-valent ([id number]) 02/02/2023 Pneumococcal Polysaccharide PPV23 (Pneumovax) 11/28/2010 Seasonal [...] encounter Miscellaneous Notes * Telephone Encounter - Edin Regan [facility] - 03/28/2024 12:42 PM EDT Refused Prescriptions: Disp Refills Meloxicam 15 MG Oral Tablet (Mobic) 90 Tab*0 Sig: TAKE 1 TABLET BY MOUTH DAILY NEEDED FOR PAINRefused By: EDIN REGANReason for Refusal: Duplicate Requ est documented in this encounter Plan of Treatment [...] filedocumented as of this encounter Care Teams Value Stream Leader Relationship Specialty Start Date End Date Wendy GONZALES, Robbin Hung MD [address] [place] [address] PCP - General 11/18/05 documented as of this encounter
--- OUTSIDE RECORDS SUMMARY | 2024-07-20 12:59 | External Medical Summary ---
Author Name Unknown Address Unknown Organization K01:[facility] [place] [facility] [address] [place] [address] Laboratory Report Ordering Provider Test Date Status DANA MARTIN 06/21/2024 09:04:44 Final Observation Date Value Abnormality Reference (Units ) Status WBC, Total 06/21/2024 09:04:44 6.50 4.00-10.80 (K/uL) Final RBC 06/21/2024 09:04:44 5.41 3.85-5.15 (M/uL) Final Hemoglobin 06/21/2024 09:04:44 16.7 Above high normal 12.0-15.3 (g/dL) Final HCT 06/21/2024 09:04:44 51.3 Above high normal 36.0-45.2 (%) Final MCV 06/21/2024 09:04:44 94.8 81.5-97.5 (fL) Final MCH 06/21/2024 09:04:44 30.9 27.0-34.0 (pg) Final MCHC 06/21/2024 09:04:44 32.6 32.0-36.0 (g/dL) Final RDW 06/21/2024 09:04:44 13.3 11.5-15.5 (%) Final Platelets 06/21/2024 09:04:44 221 140-400 (K/uL) Final MPV 06/21/2024 09:04:44 9.3 6.6-11.1 (fL) Final Nucleated erythrocytes/100 leukocytes [Ratio] in Blood by Automated count 06/21/2024 09:04:44 0 <=0 (/100 WBCs) Final Performing Location [facility] [place] [address] [place] [address]
--- OUTSIDE RECORDS SUMMARY | 2024-07-20 12:59 | External Medical Summary | Summary of Care ---
Author Name Unknown Organization [facility] Address [address] [facility] [place] [address] Phone [phone] Care Team Providers Care Riverboat Captain Name Role Phone Wendy GONZALES MD, Robbin Hung Primary Care Provider [phone] Reason for Visit * Reason Comments eRx-Medication Refill Encounter Details Date Type Department Care Team (Late st Contact Info) Description 04/06/2024 Refill Family Practice [facility] [place] 200 [facility] [place] [address] Robbin Nguyen III, MD 200 [facility] [place] 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 use One 7 mg patch daily for [...] as of this encounter (statuses as of 04/07/2024) Active Problems Problem Noted Date Diagnosed Date [...] as of this encounter (statuses as of 04/07/2024) Resolved Problems Problem Noted Date Diagnosed Date [...] as of this encounter (statuses as of 04/07/2024) Immunizations Name Administration Dates Next Due COVID-19 mRNA, LNP-s, No Pre serve, 2-Dose Series (Moderna) 10/04/2020,09/06/2020 COVID-19, mRNA, LNP-s, PF, B ooster, 100mcg/0.5mg (Moderna) 06/03/2021 Pneumococcal Conjugate Vacci ne, 20-valent ([id number]) 02/02/2023 Pneumococcal Polysaccharide PPV23 (Pneumovax) 11/28/2010 Seasonal [...] encounter Miscellaneous Notes * Telephone Encounter - Celi Nowak [facility] - 04/07/2024 11:08 AM EDT Refused Prescriptions: Disp Refills Metoprolol Tartrate 50 MG Oral Tablet (Lop*180 Ta*1 Sig: TAKE ONE TABLET BY MOUTH EVERY MORNING AND BEFORE BEDTIMERefused By: CELI NOWAK for Refusal: Course of treatment complete documented in this encounter Plan of Treatment Scheduled Procedures Name Priority Associated Diagnoses Date/Ti me COLONOSCOPY FLEXIBLE PROXIMAL DIAGNOSTIC Recall History of colon polyps Health Maintenance Due Date Last Done Comments DISCUSS TOBACCO CESSATION (REFER TO SMARTSET #8471) 1966 Albumin/Creatinine Ratio 1984 Diabetic Eye Exam [...] filedocumented as of this encounter Care Teams Riverboat Captain Relationship Specialty Start Date End Date Robbin Nguyen III, MD [address] [place] [address] PCP - General 11/18/05 documented as of this encounter
--- OUTSIDE RECORDS SUMMARY | 2024-07-20 12:59 | External Medical Summary | Summary of Care ---
Author Name Unknown Organization [facility] Address [address] [facility] [address] Phone [phone] Care Team Providers Care Pulper Name Role Phone Wendy GONZALES MD, Robbin Hung Primary Care Provider [phone] Reason for Visit * Reason Comments Outpatient Testing Encounter Details Date Type Department Care Team (Late st Contact Info) Description 06/21/2024 9:00 AM EST Laboratory Laboratory, [place] [facility] [address] [facility] [place] [address] [facility] [address] [place], [place] [id number] Hypercholesteremia; Type 2 diabetes mellitus with hemoglobin A1c goal of less than 7.0% ([facility]); Encounter for long-term (current) use of medications Allergies No known active allergiesdocumented as of this encounter (statuses as of 06/21/2024) Medications PRILOSEC CPDR 20 MG ORIndications:Es ophageal [...] EVERY MORNING 90 Tablet 3 4 Active Atorvastatin Calcium 20 MG Oral Tablet (Lipitor) TAKE 1 TABLET BY MOUTH EVERY MORNING 90 Tablet 4 Active Lisinopril 20 MG Oral Tablet (Prinivil) TAKE ONE TABLET BY MOUTH EVERY MORNING 90 Tablet 4 Active Meloxicam 15 MG Oral Tablet (Mobic) Take 1 Tablet by mouth daily as needed for Other (pain). 90 Tablet 4 Active documented as of this encounter (statuses as of 06/21/2024) Active Problems Problem Noted Date Diagnosed Date [...] as of this encounter (statuses as of 06/21/2024) Resolved Problems Problem Noted Date Diagnosed Date [...] as of this encounter (statuses as of 06/21/2024) Immunizations Name Administration Dates Next Due COVID-19 mRNA, LNP-s, No Pre serve, 2-Dose Series (Moderna) 10/04/2020,09/06/2020 COVID-19, mRNA, LNP-s, PF, B ooster, 100mcg/0.5mg (Moderna) 06/03/2021 Pneumococcal Conjugate Vacci ne, 20-valent ([id number]) 02/02/2023 Pneumococcal Polysaccharide PPV23 (Pneumovax) 11/28/2010 Seasonal [...] No 12/29/2022 Does the household have a holy cross hospitallar source of income? 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 file Not on file Not on file documented as of this encounter Plan of Treatment Pending Results Name Type Priority Associated Diagnoses Date /Time CBC Lab Routine Hypercholesteremia 06/21/2024 9:04 AM EST COMPREHENSIVE METABOLIC PANEL Lab Routine Hypercholesteremia 06/21/2024 9:04 AM EST LIPID PANEL WITH DIRECT LDL IF TG IS HIGH Lab Routine Hypercholesteremia 06/21/2024 9:04 AM EST HEMOGLOBIN A1C Lab Routine Type 2 diabetes mellitus with hemoglobin A1c goal of less than 7.0% (HCC) 06/21/2024 9:04 AM EST ALBUMIN / CREATININE RATIO, URINE Lab Routine Type 2 diabetes mellitus with hemoglobin A1c goal of less than 7.0% (HCC) 06/21/2024 9:04 AM EST VITAMIN B12 Lab Routine Encounter for long-term (current) use of medications 06/21/2024 9:04 AM EST Scheduled Procedures Name Priority Associated Diagnoses Date/Ti me COLONOSCOPY FLEXIBLE PROXIMAL DIAGNOSTIC Recall History of colon polyps Health Maintenance Due Date Last Done Comments DISCUSS TOBACCO CESSATION (REFER TO SMARTSET #5232) 1966 Albumin/Creatinine Ratio 1984 Diabetic Eye Exam [...] as of this encounter Visit Diagnoses Diagnosis Hypercholesteremia Pure hypercholesterolemia Type 2 diabetes mellitus with hemoglobin A1c goal of less than 7.0% (HCC) Encounter for long-term (current) use of medications Encounter for long-term (current) use of other medications documented in this encounter Care Teams Pulper Relationship Specialty Start Date End Date Robbin Nguyen III, MD [address] [place] [address] PCP - General 11/18/05 documented as of this encounter
--- OUTSIDE RECORDS SUMMARY | 2024-07-20 12:59 | External Medical Summary | Summary of Care ---
Author Name Unknown Organization [facility] Address [address] [facility] [place] [address] Phone [phone] Care Team Providers Care Wet Process Assistant Head Miller Name Role Phone Wendy GONZALES MD, Robbin Hung Primary Care Provider [phone] Encounter Details Date Type Department Care Team (Late st Contact Info) Description 04/29/2024 Orders Only PATIENT PORTAL DO NOT DELETE THIS DEPT USED BY [place] [id number] Allergies No known active allergiesdocumented as of this encounter (statuses as of 04/29/2024) Medications PRILOSEC CPDR 20 MG ORIndications:Es ophageal [...] WITH BREAKFAST 180 Tablet 1 4 Active Atorvastatin Calcium 20 MG Oral Tablet (Lipitor) TAKE 1 TABLET BY MOUTH EVERY MORNING 90 Tablet 4 Active FLUoxetine HCl 10 MG Oral [...] NEEDED FOR PAIN 90 Tablet 4 Active documented as of this encounter (statuses as of 04/29/2024) Active Problems Problem Noted Date Diagnosed Date [...] as of this encounter (statuses as of 04/29/2024) Resolved Problems Problem Noted Date Diagnosed Date [...] as of this encounter (statuses as of 04/29/2024) Immunizations Name Administration Dates Next Due COVID-19 mRNA, LNP-s, No Pre serve, 2-Dose Series (Moderna) 10/04/2020,09/06/2020 COVID-19, mRNA, LNP-s, PF, B ooster, 100mcg/0.5mg (Moderna) 06/03/2021 Pneumococcal Conjugate Vacci ne, 20-valent ([id number]) 02/02/2023 Pneumococcal Polysaccharide PPV23 (Pneumovax) 11/28/2010 Seasonal [...] file Not on file Not on file Head Start Director Not on file Not on file Not on file documented as of this encounter Plan of Treatment Scheduled Procedures Name Priority Associated Diagnoses Date/Ti me COLONOSCOPY FLEXIBLE PROXIMAL DIAGNOSTIC Recall History of colon polyps Health Maintenance Due Date Last Done Comments DISCUSS TOBACCO CESSATION (REFER TO SMARTSET #4922) 1966 Albumin/Creatinine Ratio 1984 Diabetic Eye Exam [...] filedocumented as of this encounter Care Teams Wet Process Assistant Head Miller Relationship Specialty Start Date End Date Robbin Nguyen III, MD [address] [place] [address] PCP - General 11/18/05 documented as of this encounter
--- OUTSIDE RECORDS SUMMARY | 2024-07-20 12:59 | External Medical Summary ---
Author Name Unknown Address Unknown Organization K01:[facility] [place] [facility] [address] [place] [address] Laboratory Report Ordering Provider Test Date Status SHYANN COLVINCK 06/21/2024 09:04:44 Final Normal: <30 mg/g creatinine< br/>High: 30-300 mg/g creatinine
Very High: >300 mg/g creatinine
Nephrotic: >2200 mg/g creatinine Observation Date Value Abnormality Reference (Units ) Status Albumin, Urine 06/21/2024 09:04:44 6.00 (mg/dL) Final Creatinine, Urine 06/21/2024 09:04:44 185 (mg/dL) Final Albumin/Creatinine [Mass Ratio] in Urine 06/21/2024 09:04:44 32 Above high normal <30 (mg/g Creat) Final Performing Location [facility] [place] [facility] [address] [place] [address]
--- OUTSIDE RECORDS SUMMARY | 2024-07-20 12:59 | External Medical Summary | Summary of Care ---
Author Name Unknown Organization [facility] Address [address] [facility] [place] [address] Phone [phone] Care Team Providers Care Catering Manager Name Role Phone Wendy GONZALES MD, Robbin Hung Primary Care Provider [phone] Reason for Visit * Reason Comments eRx-Medication Refill Encounter Details Date Type Department Care Team (Late st Contact Info) Description 06/08/2024 Refill Family Practice [facility] [place] [address] [facility] [place] [address] Robbin Nguyen III, MD [address] [place] [id number] Allergies No known active allergiesdocumented as of this encounter (statuses as of 06/10/2024) Medications PRILOSEC CPDR 20 MG ORIndications:E sophageal reflux one tab by mouth daily at bedtime 34 5 02/02/20 01 Active Additional Information Patient taking differently: Indications: as needed, Reported on 05/18/2023 Acetaminophen ER (TYLENOL ARTHRITIS PAIN) 650 MG TBCR Take 2 Tabs by mouth 2 times a day. 03/09/20 17 Active aspirin enteric coated 81 MG TBEC Take 1 Tab by mouth daily. 06/20/20 19 Active Vitamin D (Cholecalcifero l) 50 MCG (2000 UT) Oral Capsule Take by mouth . Active Vitamin B-12 100 MCG Oral Tablet (vitamin B-12) Take 1 Tablet by mouth in the morning. Active Cyclobenzaprine HCl 5 MG Oral Tablet (Flexeril)Indic ations:Lumbar degenerative disc disease,Spasm of muscle,Acute right-sided low back pain without sciatica Take by mouth 1 Tablet 2 times a day as needed for Muscle spasms. 30 Tablet 01/21/20 22 Active LORazepam 0.5 MG Oral Tablet (Ativan)Indicat ions:Anxiety Take 1 Tablet by mouth 3 times a day as needed for Anxiety. 30 Tablet 08/09/19 23 Active Nicotine 7 MG/24HR Transdermal Patch 24 Hour (Nicoderm CQ)Indications: Tobacco use One 7 mg patch daily for 2 weeks; Remove old patch daily; and then stop. 14 Patch 1 07/28/19 24 Active Nicotine Polacrilex 4 MG Mouth/Throat Gum (Nicorette)Bertha cations:Tobacco use Chew 1 piece of gum every 1 to 2 hours as needed 100 Each 1 07/28/19 24 Active metFORMIN HCl ER 500 MG Oral Tablet Extended Release 24 Hour (Glucophage XR) TAKE TWO TABLETS BY MOUTH WITH BREAKFAST 180 Tablet 1 09/30/19 24 Active FLUoxetine HCl 10 MG Oral Capsule (PROzac)Indicat ions:Complicate d grief Take 1 Capsule by mouth in the morning. 30 Capsule 6 12/31/19 24 Active amLODIPine Besylate 5 MG Oral Tablet (Norvasc)Indica tions:HTN, goal below 140/90 TAKE ONE TABLET BY MOUTH EVERY MORNING 90 Tablet 3 01/07/20 24 Active Meloxicam 15 MG Oral Tablet (Mobic) TAKE 1 TABLET BY MOUTH DAILY NEEDED FOR PAIN 90 Tablet 04/27/20 24 Active Atorvastatin Calcium 20 MG Oral Tablet (Lipitor) TAKE 1 TABLET BY MOUTH EVERY MORNING 90 Tablet 04/29/20 24 Active Lisinopril 20 MG Oral Tablet (Prinivil) TAKE ONE TABLET BY MOUTH EVERY MORNING 90 Tablet 06/09/20 24 Active Lisinopril 20 MG Oral Tablet (Prinivil) TAKE ONE TABLET BY MOUTH EVERY MORNING 90 Tablet 3 03/13/20 23 024 Discontinued documented as of this encounter (statuses as of 06/10/2024) Active Problems Problem Noted Date Diagnosed Date [...] as of this encounter (statuses as of 06/10/2024) Resolved Problems Problem Noted Date Diagnosed Date [...] as of this encounter (statuses as of 06/10/2024) Immunizations Name Administration Dates Next Due COVID-19 mRNA, LNP-s, No Pre serve, 2-Dose Series (Moderna) 10/04/2020,09/06/2020 COVID-19, mRNA, LNP-s, PF, B ooster, 100mcg/0.5mg (Moderna) 06/03/2021 Pneumococcal Conjugate Vacci ne, 20-valent ([id number]) 02/02/2023 Pneumococcal Polysaccharide PPV23 (Pneumovax) 11/28/2010 Seasonal [...] file Not on file Not on file Bobbin Doffer Not on file Not on file Not on file documented as of this encounter Miscellaneous Notes * Telephone Encounter - Iah, Care Gaps - 06/10/2024 7:22 PM EST Received message from [facility] regarding patient needing labs. Patient was notified. Successfully contacted patient and provided [facility] message. * Telephone Encounter - Ainsley Maki [facility] - 06/09/2024 11:55 AM ESTSigned Prescriptions: Disp Refills Lisinopril 20 MG Oral Tablet (Prinivil) 90 Tab*0 Sig: TAKE ONE TABLET BY MOUTH EVERY MORNING Authorizing Provider: BRYCE ALVA User: AINSLEY MAKI * Telephone Encounter - Ainsley Maki [facility] - 06/09/2024 11:52 AM EST Provided 90 days supply with 0 refill(s). Per refill protocol patient should have CMP + routine labs on file within past year. Reviewed AMP report, Care Gaps/Health Maintenance, medications list, andfor any routine labs typically ordered for this patient. Lab orders placed. Please contact patient to advise of labs ordered for blood draw AND URINE specimen (patient will have to be able to void to provide sample). Recommend patient to fast if able for labs. Patient may still have water and regular medications. Advise to obtain labs before requesting the next refill. Thank you, Ainsley Maki, PharmD Clinical Pharmacist [facility] 06/09/24 11:52 AM [phone] documented in this encounter Plan of Treatment Scheduled Procedures Name Priority Associated Diagnoses Date/Ti me COLONOSCOPY FLEXIBLE PROXIMAL DIAGNOSTIC Recall History of colon polyps Health Maintenance Due Date Last Done Comments DISCUSS TOBACCO CESSATION (REFER TO SMARTSET #[id number]) 1966 Albumin/Creatinine Ratio 1984 Diabetic Eye Exam [...] filedocumented as of this encounter Care Teams Catering Manager Relationship Specialty Start Date End Date Robbin Nguyen III, MD [address] [facility] [place] [address] PCP - General 11/18/05 documented as of this encounter
[2024-07-20] MEDS ORDERED: NICOTINE POLACRILEX 2 MG GUM MT PRN (14:25)
[2024-07-20] MEDS: ALBUT/IPRATROP 3MG/0.5MG NEB 3 ML VIAL NEB SCH (14:35)
[2024-07-20] MEDS: FLUTICASONE/VILANTEROL 100/25MCG 14 PUFFS/INHALER INH SCH (16:19)
[2024-07-20] MEDS ORDERED: CARBOHYDRATES FOR HYPOGLYCEMIA PO PRN (17:13)
[2024-07-20] MEDS ORDERED: GLUCOSE 10 TAB/TUBE PO PRN (17:13)
[2024-07-20] MEDS ORDERED: DEXTROSE 50% 50 ML SYRINGE IV PRN (17:13)
[2024-07-20] MEDS ORDERED: GLUCOSE 40% GEL 15 GM TUBE PO PRN (17:13)
[2024-07-20] MEDS ORDERED: GLUCAGON FOR INJ 1 MG VIAL SQ PRN (17:13)
[2024-07-20] MEDS ORDERED: methylPREDNISolone 125 MG/2 ML VIAL IV SCH (21:00)
[2024-07-20] MEDS: MELATONIN 3 MG TAB PO PRN (21:06)
[2024-07-20] MEDS: methylPREDNISolone 40 MG in SYRINGE 0 ML IV SCH (21:06)
[2024-07-20] MEDS: ACETAMINOPHEN 325 MG TAB PO PRN (21:07)
[2024-07-20] MEDS: INSULIN ASPART PER UNIT CHARGE SC SCH (21:08)
[2024-07-21 06:12] LABS: Basophils # (auto) 0.01 K/uL (0.00-0.20); Basophils % (auto) 0.1 %; Hematocrit (blood only) 49.5 % (37.0-47.0); Hemoglobin 16.8 g/dl (12.0-16.0); Immature Granulocytes # (auto) 0.05 K/uL (0.01-0.20); Immature Granulocytes % (auto) 0.5 %; Lymphocytes # (auto) 0.95 K/uL (1.20-3.40); Lymphocytes % (auto) 9.9 %; Mean Corpuscular Hemoglobin 30.2 pg (25.0-34.0); Mean Corpuscular Hgb Conc 33.9 g/dL (32.0-36.0); Mean Platelet Volume 9.2 fL (9.4-12.4); Monocytes # (auto) 0.26 K/uL (0.11-0.59); Monocytes % (auto) 2.7 %; Neutrophils % (auto) 86.8 %; Platelet Count 174 K/uL (130-400); RDW Coefficient of Variation 12.4 % (11.5-14.5); Red Blood Count 5.56 M/uL (4.20-5.40); White Blood Count 9.57 K/ul (4.8-10.8)
[2024-07-21 06:26] LABS: Albumin Globulin Ratio 1.5 (0.9-2); Albumin Level 4.5 gm/dl (3.4-5.0); BUN Creatinine Ratio 26.7 (10-20); Bilirubin,Total 0.5 mg/dl (0.2-1.0); Globulin 3.1 gm/dl (2.5-4.0); Magnesium 2.2 mg/dl (1.7-2.4); Potassium 4.5 mmol/L (3.5-5.1); Total Protein 7.6 gm/dl (6.0-8.3)
[2024-07-21 07:27] LABS: Estimated Average Glucose 137 mg/dl; Hemoglobin A1C 6.4 % (4.5-5.6)
[2024-07-21] MEDS: ATORVASTATIN 20 MG TAB PO SCH (08:35)
[2024-07-21] MEDS: lisinopril 20 MG TAB PO SCH (08:36)
[2024-07-21] MEDS: FLUoxetine HCL 10 MG CAP PO SCH (08:36)
[2024-07-21] MEDS: METOPROLOL TARTRATE 50 MG TAB PO SCH (08:36)
[2024-07-21] MEDS: amLODIPine BESYLATE 5 MG TAB PO SCH (08:36)
[2024-07-21] MEDS: NICOTINE 14 MG/24 HR PATCH TD SCH (08:37)
--- NOTE | 2024-07-21 09:41 | Electrocardiogram Report ---
Test Reason : Blood Pressure : */* mmHG Vent. Rate : 56 BPM Atrial Rate : 56 BPM P-R Int : 162 ms QRS Dur : 96 ms QT Int : 456 ms P-R-T Axes : 70 62 63 degrees QTcB Int : 440 ms Sinus bradycardia with Premature ventricular complexes Otherwise normal ECG When compared with ECG of 20-Jul-2024 10:00, No significant change was found Confirmed by Damir Montiel ([id number]) on 07/21/2024 9:38:15 AM Referred By: REFERRED SELF Confirmed By: Damir Montiel
[2024-07-21] MEDS ORDERED: ALBUT/IPRATROP 3MG/0.5MG NEB 3 ML VIAL NEB PRN (09:52)
--- NOTE | 2024-07-21 11:42 | Hospitalist Progress Note ---
Date of Service July 21, 2024 Assessment & Plan (1) Coronavirus infection: (2) Acute hypoxemic respiratory failure: (3) Acute dyspnea: (4) Influenza A: (5) Hypertension: (6) Osteoarthritis: (7) GERD (gastroesophageal reflux disease): (8) Hyperlipidemia: Plan The patient is a 58-year-old female with a past medical history of HTN, HLD, GERD, hypothyroidism, DM2, tobacco use who presents to the ED on 07/20/2024 with complaints of cough and shortness of breath over the past 5 days. Found to be positive for coronavirus 0C43 Acute hypoxic respiratory failure Coronavirus 0C43 Suspected bronchitis and underlying lung disease Chest x-ray without any infiltrates/acute changes, check Pro-Ranjith Remains on 2 L of oxygen, wean as able, ambulatory pulse ox prior to DC Supportive care, DuoNebs, IV Solu-Medrol twice a day Hospitalized last year with influenza A, suspect underlying lung disease Follow-up with pulmonology after discharge for PFTs to rule out COPD She has been feeling much better and does not have any wheezing and no short ness of breath at rest Saturating normally on room air Will get it 2 steps O2 saturation test prior to discharge home this afternoon Hx depression/anxiety: Continue fluoxetine/lorazepam as needed Hx HTN/HLD: BP soft, continue lisinopril and amlodipine tomorrow -Bradycardia also noted, will hold metoprolol for now. Hx hyperthyroidism: Remains off medications, follow-up TSH outpatient Full code DVT prophylaxis: Lovenox Admission and Anticipated Discharge Date Admission Date: July 20, 2024 Subjective 07/21/2024 The patient was seen and examined in medical telemetry unit She was admitted yesterday with non COVID-19 coronavirus infection She has been feeling much better and wants to be discharged Denies any significant symptoms Review of Systems Review of Systems: aAl systems reviewed and are unremarkable except as noted below Physical Exam Physical Exam: Lying in bed without any acute distress Constitutional: well developed, well nourished and + obese; not ill appearing Eyes: PERRL, conjunctivae normal, anicteric sclerae ENMT: external ear and nose normal, oropharynx normal Neck: trachea midline, no thyromegaly Respiratory: no respiratory distress Auscultation: lungs clear to auscultation bilaterally and + diminished lung sounds; no crackles Cardiovascular: Rate/Rhythm: regular rate and regular rhythm; not tachycardic Heart Sounds: normal S1 and normal S2; no murmur Extremities: no edema Gastrointestinal (Abdomen): Inspection/Auscultation: normal bowel sounds; abdomen not distended Percussion/Palpation: abdomen soft; abdomen nontender Musculoskeletal: no acute arthritis involving any of the joint Neurologic: normal touch/pain/proprioception and moves all extremities; no focal motor deficits Psychiatric: A+Ox3, euthymic affect Lymphatic: no cervical or axillary lymphadenopathy Results & Data Results & Data Vital Signs (Past 12 Hours) Vital Signs Temp Pulse Pulse Resp BP Pulse Ox O2 Del Method 07/21/24 10:44 Room Air 07/21/24 09:29 53 L 16 91 Room Air 07/21/24 07:27 59 L 07/21/24 07:11 36.5 C 60 16 103/66 91 Nasal Cannula 07/21/24 07:06 57 L 18 91 Nasal Cannula 07/21/24 03:42 36.6 C 67 20 120/69 90 Nasal Cannula 07/20/24 23:41 36.8 C 65 18 141/69 H 93 Nasal Cannula O2 Flow Rate 07/21/24 10:44 07/21/24 09:29 07/21/24 07:27 07/21/24 07:11 2.5 07/21/24 07:06 2 07/21/24 03:42 2 07/20/24 23:41 2 Laboratory Results Short CBC 07/21/24 Range/Units 05:37 WBC 9.57 (4.8-10.8) K/ul Hgb 16.8 H (12.0-16.0) g/dl Hct 49.5 H (37.0-47.0) % Plt Count 174 (130-400) K/uL BMP 07/21/24 05:37 Sodium 136 Potassium 4.5 Chloride 100 Carbon Dioxide 30 BUN 20 Creatinine 0.75 Glucose 191 H Calcium 10.0 Liver Function 07/21/24 Range/Units 05:37 Total Bilirubin 0.5 (0.2-1.0) mg/dl AST 15 (13-39) U/L ALT 27 (7-52) U/L Alkaline Phosphatase 95 (34-104) U/L Albumin 4.5 (3.4-5.0) gm/dl Urine 07/20/24 Range/Units 11:37 Urine Color Yellow Urine Appearance Clear (Clear) Urine pH 6.0 (4.5-7.5) Ur Specific [place] 1.011 (1.000-1.030) Urine Protein Negative (Negative) Urine Glucose (UA) Negative (Negative) Medications Administered Current Inpatient Medications Acetaminophen (Acetaminophen 325 Mg Tab) 650 mg PO Q4H PRN PRN Reason: pain/fever Stop: 08/19/24 13:13 Last Admin: 07/21/24 09:32 Dose: 650 mg Albuterol (Albut/Ipratrop 3mg/0.5mg Neb 3 Ml Vial) 3 ml NEB QIDR PRN; Protocol PRN Reason: Shortness Of Breath Or Wheezing Stop: 08/19/24 14:59 Amlodipine Besylate ([facility]odipine Besylate 5 Mg Tab) [facility] Stop: 08/20/24 08:59 Last Admin: 07/21/24 08:36 Dose: 5 mg Atorvastatin Calcium (Atorvastatin 20 Mg Tab) 20 mg PO [facility] Stop: 08/20/24 08:59 Last Admin: 07/21/24 08:35 Dose: 20 mg Dextrose (Dextrose 50% 50 Ml Syringe) 25 - 50 ml IV UD PRN; Protocol PRN Reason: Hypoglycemia Protocol Stop: 08/19/24 17:12 Fluoxetine HCl (Fluoxetine Hcl 10 Mg Cap) [facility] Stop: 08/20/24 08:59 Last Admin: 07/21/24 08:36 Dose: 10 mg Fluticasone/Vilanterol (Fluticasone/Vilanterol 100/25mcg 14 Puffs/Inhaler) 1 puffs INH DAILY [facility]; Protocol Stop: 08/19/24 14:29 Last Admin: 07/21/24 08:36 Dose: 1 puffs Glucagon (Glucagon For Inj 1 Mg Vial) 1 mg SQ UD PRN; Protocol PRN Reason: Hypoglycemia Protocol Stop: 08/19/24 17:12 Glucose (Glucose 40% Gel 15 Gm Tube) 15 - 30 gm PO UD PRN; Protocol PRN Reason: Hypoglycemia Protocol Stop: 08/19/24 17:12 Glucose (Glucose 10 Tab/Tube) 4 - 8 tab PO UD PRN; Protocol PRN Reason: Hypoglycemia Protocol Stop: 08/19/24 17:12 Methylprednisolone 40 mg/ (Syringe) 0.64 mls @ 1.5 mls/min IV BID [facility] Stop: 08/19/24 20:59 Last Admin: 07/21/24 08:35 Dose: 1.5 mls/min Insulin Aspart (Insulin Aspart Per Unit Charge) 0 units SC ACHS [facility] Stop: 08/19/24 20:59 Last Admin: 07/21/24 09:32 Dose: 3 units Lisinopril (Lisinopril 20 Mg Tab) 20 mg PO QAM [facility] Stop: 08/20/24 08:59 Last Admin: 07/21/24 08:36 Dose: 20 mg Lorazepam (Lorazepam 0.5 Mg Tab) 0.5 mg PO TID PRN PRN Reason: Anxiety Stop: 08/19/24 12:16 Melatonin (Melatonin 3 Mg Tab) 6 mg PO HS PRN PRN Reason: Sleep Stop: 08/19/24 19:48 Last Admin: 07/20/24 21:06 Dose: 6 mg Metoprolol Tartrate (Metoprolol Tartrate 50 Mg Tab) [facility] Stop: 08/20/24 08:59 Last Admin: 07/21/24 08:36 Dose: 50 mg Miscellaneous (Remove Nicoderm Patch) 1 each N/A DAILY@0859 [facility] Stop: 08/20/24 08:58 Last Admin: 07/21/24 08:36 Dose: Not Given Miscellaneous (Carbohydrates For Hypoglycemia ) 15 - 30 gm PO UD PRN PRN Reason: Hypoglycemia Protocol Stop: 08/19/24 17:12 Nicotine (Nicotine 14 Mg/24 Hr Patch) 1 patch TD [facility] Stop: 08/20/24 08:59 Last Admin: 07/21/24 08:37 Dose: Not Given Nicotine Polacrilex (Nicotine Polacrilex 2 Mg Gum) 1 piece MT Q2H PRN PRN Reason: nicotine withdrawal Stop: 08/19/24 14:24
[2024-07-21 11:50] VITALS: BP 127/69; TEMP 98.4
[2024-07-21 14:04] VITALS: RESP 16; O2SAT 95
[2024-07-21 14:41] VITALS: PULSE 54
--- NOTE | 2024-07-21 18:29 | Discharge Summary ---
Date of Service July 21, 2024 Admission HPI Per Admitting Provider The patient is a 58-year-old female with a past medical history of HTN, hyperthyroidism, HLD, GERD, prediabetes, tobacco use who presents to the ED on 07/20/2024 with complaints of a cough and shortness of breath over the past 5 days. Patient also reported some chest tightness associated with the cough and respiratory symptoms. Also reported some wheezing in the middle of the night. Reports a runny nose, Denies sore throat and congestion. Reports her coworker was sick about 1 week ago and had influenza A. Denies fevers/chills. Denies n/v/d or abdominal pain. Denies recent travel. Pt reports smoking 1/2 ppd, cut down from last year Reports drinking 3-4 glasses of wine a few times a week. On arrival to the ED, chest x-ray is negative for any acute findings Labs are fairly unremarkable. Respiratory panel positive for coronavirus 0C43 An ambulatory pulse ox was completed and the patient dropped into the mid 80s. She remains on 2 L of oxygen now. The patient will be admitted for acute hypoxic respiratory failure and management of bronchitis Admission Exam Per Admitting Provider Constitutional: WD/WN, vitals as above Eyes: PERRL, conjunctivae normal, anicteric sclerae ENMT: external ear and nose normal, oropharynx normal Neck: trachea midline, no thyromegaly Respiratory: normal respiratory effort, lungs clear to auscultation (rhonchi in b/l lung bases ) Cardiovascular: RRR, no murmur, no edema (+1 edema, b/l le ) Gastrointestinal (Abdomen): normal bowel sounds, soft, nontender, no hepatosplenomegaly Musculoskeletal: no cyanosis or clubbing, extremities motor strength 5/5 Skin: no rashes, warm and dry Neurologic: PERRL, EOMI, accommodation nl, no face palsy, no dysarthria Psychiatric: A+Ox3, euthymic affect Lymphatic: no cervical or axillary lymphadenopathy Principal Diagnosis Coronavirus OC 43 infection Discharge Exam Lying in bed without any acute distress Constitutional well developed, well nourished and + obese; not ill appearing Eyes PERRL, conjunctivae normal, anicteric sclerae ENMT external ear and nose normal, oropharynx normal Neck trachea midline, no thyromegaly Respiratory no respiratory distress Auscultation: lungs clear to auscultation bilaterally and + diminished lung sounds; no crackles Cardiovascular Rate/Rhythm: regular rate and regular rhythm; not tachycardic Heart Sounds: normal S1 and normal S2; no murmur Extremities: no edema Gastrointestinal (Abdomen) Inspection/Auscultation: normal bowel sounds; abdomen not distended Percussion/Palpation: abdomen soft; abdomen nontender Neurologic normal touch/pain/proprioception and moves all extremities; no focal motor deficits Psychiatric A+Ox3, euthymic affect Lymphatic no cervical or axillary lymphadenopathy Discharge Data Allergies Allergy/AdvReac Type Severity Reaction Status Date / Time No Known Allergies Allergy Verified 07/21/23 19:47 Consultations 07/20/24 11:53 ED Decision to Admit Stat Hospital Course (1) Coronavirus infection: (2) Acute hypoxemic respiratory failure: (3) Acute dyspnea: (4) Influenza A: (5) Hypertension: (6) Osteoarthritis: (7) GERD (gastroesophageal reflux disease): (8) Hyperlipidemia: Plan The patient is a 58-year-old female with a past medical history of HTN, HLD, GERD, hypothyroidism, DM2, tobacco use who presents to the ED on 07/20/2024 with complaints of cough and shortness of breath over the past 5 days. Found to be positive for coronavirus 0C43 Acute hypoxic respiratory failure Coronavirus 0C43 Suspected bronchitis and underlying lung disease Chest x-ray without any infiltrates/acute changes, check Pro-Ranjith Remains on 2 L of oxygen, wean as able, ambulatory pulse ox prior to DC Supportive care, DuoNebs, IV Solu-Medrol twice a day Hospitalized last year with influenza A, suspect underlying lung disease Follow-up with pulmonology after discharge for PFTs to rule out COPD She has been feeling much better and does not have any wheezing and no shortness of breath at rest Saturating normally on room air Will get it 2 steps O2 saturation test prior to discharge home this afternoon Hx depression/anxiety: Continue fluoxetine/lorazepam as needed Hx HTN/HLD: BP soft, continue lisinopril and amlodipine tomorrow -Bradycardia also noted, will hold metoprolol for now. Hx hyperthyroidism: Remains off medications, follow-up TSH outpatient Full code DVT prophylaxis: Lovenox Total Time Total Time Spent Total Time Spent (In Minutes): 35 minutes Discharge Plan Discharge Items Patient Disposition: Home - Self-Care Reason For Visit: SOB, CORONAVIRUS oc43 Discharge Diagnosis: Coronavirus OC 43 infection Condition on Discharge: Fair Activity: Resume your previous activity Non-emergency contact: Primary Care Provider Call non-emergency contact if: you have any medication questions and your symptoms worsen Follow-up/Referrals: Robbin Nguyen MD [Primary Care Provider] - (Date & Time 07/28/2024 8:20 AM Provider: Farheen Armenta [facility] ) Diet: Regular Addtl Attending Provider Instructions: Please take precautions to avoid falls Use oxygen as advised Finish the course of steroid Take medications as advised and keep appointment with the healthcare provider Pending Studies at Discharge: No Stand-Alone Forms: My [facility] [employer], Smoking Cessation Medications and DC Order Prescriptions: New ipratropium-albuterol 0.5 mg-3 mg(2.5 mg base)/3 mL Solution For Nebulization 3 ml NEB QIDR PRN (Reason: shortness of breath or wheezing) Qty: 50 0RF prednisone 10 mg tablet 10 mg PO DIRECTED Qty: 20 0RF Rx Instructions: 4 p.o. daily for 2 days, 3 p.o. daily for 2 days, 2 p.o. daily for 2 days and then 1 p.o. daily for 2 days Continued atorvastatin 20 mg Tablet 20 mg PO QAM lorazepam 0.5 mg Tablet 0.5 mg PO TID PRN (Reason: Anxiety) omeprazole magnesium [Prilosec OTC] 20 mg Tablet,Delayed Release (Dr/Ec) 20 mg PO HS PRN (Reason: Acid Reflux) meloxicam 15 mg tablet 15 mg PO QAM lisinopril 20 mg tablet 20 mg PO QAM amlodipine 5 mg tablet 5 mg PO QAM acetaminophen [Tylenol Extra Strength] 500 mg Tablet 1,000 mg PO DIRECTED PRN (Reason: Pain) fluoxetine 10 mg capsule 10 mg PO QAM metformin 500 mg tablet extended release 24 hr 1,000 mg PO QAM metoprolol tartrate 50 mg tablet 50 mg PO QAM Rx Instructions: per pt she does 50 mg po daily instead of 50 mg po bid Changed albuterol sulfate 90 mcg/actuation HFA aerosol inhaler 2 inh inhalation Q6H PRN (Reason: shortness of breath or wheezing) Qty: 6.7 0RF Discharge Orders: Discharge Order (Routine); Ordered 07/21/24 Ordered By: Shaunna Carrillo/Other Patient Handouts: Prediabetes, 5 Steps for Eating Healthier Admission Data Admit Date/Time: 07/20/24 12:00 Attending Provider: Shaunna Clement Admit Provider: Hi Nunn Primary Care Provider: Robbin Nguyen Other Providers: Hi Nunn Other Interventions: Discharge Summary Assessment (RN) Last Done: 07/21/24 14:02
== END 2024-07-21 15:39 | disposition home or self-care (01) | DRG 865 ==
LOC: ED 09:33 → SUATTDRO 12:00 → 2W 12:00